=== PATIENT | male | born 1950 | race Caucasian/White ===

== ENCOUNTER 2017-12-21 10:46 | Inpatient (IN) | payer MEDICARE, OTHER ==
[2017-12-11 12:01] VITALS: Ht 172.7 cm; Wt 85.7 kg
--- NOTE | 2017-12-11 12:43 | PAT Medication Instructions ---
Service Date Dec 11, 2017. Current Home Medication List Aspirin (Aspirin Ec), 81 MG PO QAM Celecoxib (CeleBREX), 200 MG PO QAM Diltiazem Hcl Ext Rel (Tiazac), 240 MG PO QAM Fish Oil ([place]-3), 1 CAP PO QAM Glimepiride (Glimepiride), 1 TAB PO BID Hydrochlorothiazide (Hctz), 50 MG PO QAM Metformin Hcl (Glucophage), 500 MG PO QAM Naproxen (Aleve), 440-660 MG PO PRN Pantoprazole (Protonix), 40 MG PO QAM Potassium Ext Rel (Klor-Con), 20 MEQ PO QAM Rosuvastatin Calcium (Crestor), 10 MG PO QAM [Arthro 7], 1 TAB PO QAM Medication Instructions For Your Scheduled Surgery -Contact your surgeon for instructions for: Celecoxib (CeleBREX), 200 MG PO QAM Naproxen (Aleve), 440-660 MG PO PRN - Hold the following medications starting tomorrow 12/12: Fish Oil ([place]-3), 1 CAP PO QAM [Arthro 7], 1 TAB PO QAM - Hold the following medications the morning of surgery: Potassium Ext Rel (Klor-Con), 20 MEQ PO QAM Metformin Hcl (Glucophage), 500 MG PO QAM Glimepiride (Glimepiride), 1 TAB PO BID Hydrochlorothiazide (Hctz), 50 MG PO QAM - Take the following medications the morning of surgery with a sip of water: Aspirin (Aspirin Ec), 81 MG PO QAM Rosuvastatin Calcium (Crestor), 10 MG PO QAM Pantoprazole (Protonix), 40 MG PO QAM Diltiazem Hcl Ext Rel (Tiazac), 240 MG PO QAM - Take the following medications as scheduled the night before surgery: Glimepiride (Glimepiride), 1 TAB PO BID If you have any questions please call us at [phone] or [phone] or [phone]
--- NOTE | 2017-12-11 13:28 | DIAGNOSTIC IMAGING REPORT ---
CHEST 2 VIEWS ROUTINE CLINICAL HISTORY: 67 years-old Male presenting with preoperative assessment. TECHNIQUE: PA and lateral views of the chest were obtained. COMPARISON: None. FINDINGS: Atherosclerosis of the aortic arch. Cardiac silhouette normal in size. Lungs and pleural spaces clear. Degenerative changes of the thoracic spine. Right shoulder arthroplasty. Upper abdomen normal. IMPRESSION: 1. No acute cardiopulmonary disease. Electronically signed by: Jet Farris M.D. 12/11/2017 1:27 PM Dictated Date/Time: 12/11/2017 1:26 PM
[2017-12-11 13:36] LABS: BASO % 0.4 %; BASO ABS # 0.03 K/uL (0-0.2); EOS % 2.6 %; EOS ABS # 0.21 K/uL (0-0.5); HEMATOCRIT 37.4 % (42-52); HEMOGLOBIN 12.5 g/dL (14.0-18.0); IG# 0.01 K/uL (0.00-0.02); LYMPH % 19.1 %; LYMPH ABS # 1.56 K/uL (1.2-3.4); MEAN CELL VOLUME 92.8 fL (80-100); MEAN CORPUSCULAR HGB CONC 33.4 g/dl (32-36); MEAN PLATELET VOLUME 9.7 fL (7.4-10.4); MONO % 5.5 %; MONO ABS # 0.45 K/uL (0.11-0.59); NEUT % 72.3 %; NEUT ABS # 5.89 K/uL (1.4-6.5); PLATELET COUNT 202 K/uL (130-400); RED CELL DISTRIBUTION WIDTH CV 13.2 % (11.5-14.5); RED CELL DISTRIBUTION WIDTH SD 45.2 fL (36.4-46.3); WHITE BLOOD COUNT 8.15 K/uL (4.8-10.8)
[2017-12-11 15:11] LABS: CALCIUM 9.8 mg/dl (8.5-10.1); CREATININE 1.78 mg/dl (0.60-1.40); POTASSIUM 4.6 mmol/L (3.5-5.1)
[~2017-12-21] VITALS: Ht 172.7 cm; Wt 85.7 kg
[~2017-12-21 10:46] MED LIST: ARTHRO 7 PO; ASPI81TA28 PO; CEFAZOLIN 1000MG IV PUSH 7.5 ML IV SCH; CEFAZOLIN 2000MG IV PUSH 15 ML IV SCH; CLB/200 PO; CRS/10 PO; DILT-115 PO; GLC/500 PO; GLIM4TAB2 PO; HYDR50TA3 PO; LACTATED RINGER'S 1000ML 1,000 ML IV SCH; NAPR1TAB9 PO; OMEG10007 PO; PANT40TA PO; POTA20TA16 PO
[2017-12-21 11:35] VITALS: BP 154/91; PULSE 61; TEMP 36.5; O2SAT 97
[2017-12-21 12:09] LABS: CREATININE 1.88 mg/dl (0.60-1.40); POTASSIUM 3.7 mmol/L (3.5-5.1)
--- NOTE | 2017-12-21 14:22 | History & Physical Bridge Note ---
H&P Re-Evaluation Bridge Note: I have examined the patient, reviewed the History & Physical and in the interval since the performance of the History & Physical I have noted the following changes of clinical significance: No changes noted
--- NOTE | 2017-12-21 14:25 | History and Physical ---
History & Physical Date Dec 21, 2017. Chief Complaint Back and leg pain History of Present Illness The patient is a 67 year old male with complaints of back and leg pain Additional History Hepatic Disease: No Endocrine Disorder: No Kidney Disease: No Hypertension: Yes Heart Disease: No Bleeding Tendencies: No Infectious Diseases: No Allergies Coded Allergies: Acetaminophen (Verified Allergy, Mild, sees bugs, 12/21/17) Oxycodone (Verified Allergy, Mild, sees bugs, 12/21/17) Carisoprodol (Verified Allergy, Unknown, HIVES, 12/21/17) Codeine (Verified Allergy, Unknown, HIVES, 12/21/17) Home Medications Scheduled Aspirin (Aspirin Ec), 81 MG PO QAM Celecoxib (CeleBREX), 200 MG PO QAM Diltiazem Hcl Ext Rel (Tiazac), 240 MG PO QAM Fish Oil ([place]-3), 1 CAP PO QAM Glimepiride (Glimepiride), 1 TAB PO BID Hydrochlorothiazide (Hctz), 50 MG PO QAM Metformin Hcl (Glucophage), 500 MG PO QAM Naproxen (Aleve), 440-660 MG PO PRN Pantoprazole (Protonix), 40 MG PO QAM Potassium Ext Rel (Klor-Con), 20 MEQ PO QAM Rosuvastatin Calcium (Crestor), 10 MG PO QAM [Arthro 7], 1 TAB PO QAM Physical Examination Skin: warm/dry, no rash Eyes: normal inspection, EOMI, sclerae normal ENT: normal ENT inspection, pharynx normal Head: normocephalic, atraumatic Neck: supple, no adenopathy, trachea midline Respiratory/Chest: lungs clear, normal breath sounds, no respiratory distress Cardiovascular: regular rate, rhythm, no edema, no murmur Abdomen / GI: normal bowel sounds, non tender Back: normal inspection Extremities: normal inspection, normal range of motion Neurologic/Psych: no motor/sensory deficits, alert, normal reflexes, oriented x 3 Diagnosis Lumbar spinal stenosis with spondylolisthesis Plan of Treatment L5-S1 decompression fusion
[2017-12-21] MEDS ORDERED: PROPOFOL IV EMULSION 10 MG/ML 20 ML VIAL IV ONE (14:37)
[2017-12-21] MEDS ORDERED: ONDANSETRON INJ 2 MG/ML 2 ML VIAL ONE (14:37)
[2017-12-21] MEDS ORDERED: FENTANYL CITRATE INJ 50 MCG/1 ML 2 ML VIAL ONE ×2 (14:37→16:18)
[2017-12-21] MEDS ORDERED: DEXAMETHASONE SOD INJ 4 MG/ML VIAL ONE (14:37)
[2017-12-21] MEDS ORDERED: NEOSTIGMINE METHYLSULFATE 1 MG/ML 10ML VIAL ONE (14:37)
[2017-12-21] MEDS ORDERED: GLYCOPYRROLATE INJ 0.2 MG/ML VIAL ONE (14:37)
[2017-12-21] MEDS ORDERED: LIDOCAINE HCL 2% 2 ML VIAL (20MG/ML) ONE (14:37)
[2017-12-21] MEDS ORDERED: BACITRACIN 50000 UNIT VIAL ONE (14:38)
[2017-12-21] MEDS ORDERED: HYDROmorphone INJ 2 MG/ML SYR/VIAL ONE (14:38)
[2017-12-21] MEDS ORDERED: MIDAZOLAM HCL 1 MG/ML 2ML VIAL ONE (14:38)
[2017-12-21] MEDS ORDERED: BUPIVACAINE/EPINEPHRINE 0.5% MPF 1:200,000 30 ML VIAL ONE (14:38)
--- NOTE | 2017-12-21 15:38 | Anesthesiology Progress Note ---
Anesthesia Progress Note Date of Service Dec 21, 2017. Progress Notes The patient is a 67 y/o male with a h/o HTN, DLD, mild nonobstructive CAD and DMII who is scheduled to undergo L5-S1 decompression fusion with Dr. Gabriel today. On the preoperative labs from 12/11/17 it was noted that the patient had a creatinine of 1.78. There was no prior creatinine on record. A creatinine was ordered to be drawn on day of surgery and was found to be 1.88. The patient had been cleared for surgery by his PCP Dr. Noonan but there was no mention of the increased creatinine. I was able to get a hold of Dr. Noonan prior to surgery and spoke to him. He stated that the patient's baseline creatinine appears to be 1.3 to 1.4, however given the patient's history of DM he was not too impressed with the level of increase in creatinine and stated that he would clear the patient for surgery recommending adequate perioperative IV hydration. The patient's son then told me that the patient had just admitted to taking Aleve three times a day for his shoulder pain over the last several weeks. He did not take any this week. I informed the patient that this is likely leading to his worsening renal function and recommended that he not take all of these NSAID and that he discuss alternative pain management options with his PCP. I also informed the patient and the family that he is at increased risk for worsening renal function after surgery. The patient and family understand and agree with proceeding. Dr. Gabriel was also informed of the patient's creatinine have medicine follow the patient postoperatively.
[2017-12-21] MEDS ORDERED: ONDANSETRON INJ 2 MG/ML 2 ML VIAL IV PRN ×2 (15:45→17:00)
[2017-12-21] MEDS ORDERED: EpHEDrine SULFATE INJ 50 MG/ML AMP IV PRN (15:45)
[2017-12-21] MEDS ORDERED: ATROPINE SULFATE 0.1 MG/ML 5ML SYR IV PRN (15:45)
[2017-12-21] MEDS ORDERED: FENTANYL CITRATE INJ 50 MCG/1 ML 2 ML VIAL IV PRN (15:45)
[2017-12-21] MEDS ORDERED: FLOSEAL HEMOSTATIC MATRIX 10ML TOP ONE (16:40)
--- NOTE | 2017-12-21 16:46 | DIAGNOSTIC IMAGING REPORT ---
LUMBAR SPINE 2 OR 3 VIEW CLINICAL HISTORY: L5-S1 DECOMPRESSION/FUSION COMPARISON STUDY: No previous studies for comparison. Fluoroscopy time: 18 seconds. FINDINGS: These 2 fluoroscopic images demonstrate an L5-S1 discectomy. There is a posterior decompression. There are bilateral pedicle screws at the L5 and S1 levels with interconnecting rods. There is grade I anterolisthesis of L5 on S1. IMPRESSION: Fluoroscopic images demonstrating an L5-S1 discectomy and bilateral pedicle screw fusion. Electronically signed by: Michoacano Choudhary M.D. 12/21/2017 4:45 PM Dictated Date/Time: 12/21/2017 4:44 PM
[2017-12-21] MEDS ORDERED: SODIUM CHLORIDE 0.9% 1000ML 1,000 ML IV SCH (16:52)
--- NOTE | 2017-12-21 16:52 | [facility] Operative Report ---
Operative Report Operative Date Dec 21, 2017. Pre-Operative Diagnosis Lumbar spinal stenosis with spondylolisthesis Post-Operative Diagnosis Lumbar spinal stenosis with spondylolisthesis Procedure(s) Performed #1 lumbar decompression medial facetectomy foraminotomy L4 5 L5-S1. #2 posterior spinal fusion L5-S1. #3 placement posterior transportation L5-S1. #4 interbody fusion L5-S1. #5 placement peek cage 10 x 22 mm L5-S1. #6 placement locally harvested morcellized autograft in the posterior gutters. #7 placement infuse collagen sponge, mass graft and posterior gutters and osteal bone graft in the interbody space. Surgeon Dr. Gabriel Adult Ministries Director Surgeon(s) none Estimated Blood Loss 200 ML Findings Severe spinal stenosis with spondylolisthesis Specimens None Per Surgeon Anesthesia Type General Description of Procedure Patient was met with preoperatively case discussed all questions addressed. After informed consent obtained patient was taken to the operative suite underwent intubation placed in a prone position the Saul table on top of the Bienvenido frame. All bony promises well-padded eyes inspected to ensure no external pressure placed upon them. This point the lumbar spine was prepped and draped in normal sterile fashion. Sharp dissection with the assistance of Bovie cautery was performed onto an exposing the lamina and transverse processes of L5 and sacral alar bilaterally. From a caudal to cephalad fashion complete laminectomy of L5 partial laminectomy of L4 was performed addressing severe lateral recess and foraminal stenosis. After this was complete pedicle screws were placed in L5-S1 levels bilaterally with the assistance of fluoroscopy and the processes renaldo placed. Through a transforaminal approach on the right complete discectomy of L5-S1 was performed endplates curetted to subcortical bleeding bone and a 10 x 22 mm peek cage filled with osteal bone graft tapped in position. The rods were then locked and final position bilaterally. The transverse processes of 5 the sacral alar bur to subcortical bleeding bone. Infuse collagen sponge mass graft and locally harvested morcellized autograft placed in the posterior gutters. 15 round DILEEP drain inserted. Incision was then closed with 1 Vicryl fascia 2-0 Vicryl subcutaneous tensely 4-0 Monocryl for final skin closure Steri-Strips dressings placed in patient with the PACU stable condition. I attest to the content of the Intraoperative Record and any orders documented therein. Any exceptions are noted below.
[2017-12-21] MEDS ORDERED: SOD PHOSPHATE/SOD BIPHOSPHATE ENEMA 132 ML BTL PR PRN (17:00)
[2017-12-21] MEDS ORDERED: CEFAZOLIN IV 2,000 MG in DEXTROSE 5% 50ML 50 ML IV SCH (17:00)
[2017-12-21] MEDS ORDERED: LORAZEPAM 0.5 MG TAB PO PRN (17:00)
[2017-12-21] MEDS ORDERED: ALUMINUM/MAGNESIUM SUSP 30 ML UDC PO PRN (17:00)
[2017-12-21] MEDS ORDERED: DC PCA PRN (17:00)
[2017-12-21] MEDS ORDERED: MAGNESIUM HYDROXIDE SUSP 30 ML UDC PO PRN (17:00)
[2017-12-21] MEDS ORDERED: LORAZEPAM INJ 0.5 MG in SYRINGE 0 ML IV PRN (17:00)
[2017-12-21] MEDS ORDERED: DO NOT ADMINISTER PNEUMOCOCCAL VACCINE PRN (17:00)
[2017-12-21] MEDS ORDERED: DO NOT ADMINISTER FLU VACCINE PRN (17:00)
[2017-12-21] MEDS ORDERED: FAMOTIDINE 20 MG TAB PO PRN (17:00)
[2017-12-21] MEDS ORDERED: NALOXONE HCL 0.4 MG/1 ML VIAL/CARP IV PRN ×2 (17:00)
[2017-12-21] MEDS ORDERED: hydrOXYzine HCL 25 MG TAB PO PRN (17:00)
[2017-12-21] MEDS ORDERED: PROMETHAZINE HCL INJ 12.5 MG in SODIUM CHLORIDE 0.9% 50ML 50 ML IV PRN (17:00)
[2017-12-21] MEDS ORDERED: METOCLOPRAMIDE HCL INJ 5 MG/ML 2 ML VIAL IV PRN (17:00)
[2017-12-21] MEDS ORDERED: HYDROmorphone HCL 0.5MG/ML 50 ML CASSETTE IV PRN (17:00)
[2017-12-21] MEDS ORDERED: BISACODYL 10 MG SUPP PR PRN (17:00)
[2017-12-21] MEDS ORDERED: HYDROmorphone HCL 0.5MG/ML 50 ML CASSETTE ONE (17:08)
[2017-12-21] MEDS ORDERED: ACETAMINOPHEN IV 100 ML IV PRN (17:15)
--- NOTE | 2017-12-21 17:45 | Anesthesiology Progress Note ---
Anesthesia Post Op Note Date & Time Dec 21, 2017 at 17:45 Vital Signs Pain Intensity: 3 Vital Signs Past 12 Hours Date Time Temp Pulse Resp B/P (MAP) Pulse Ox O2 Delivery O2 Flow Rate FiO2 12/21/17 17:35 55 16 146/81 93 Room Air 12/21/17 17:25 60 10 156/82 100 Oxymask 10 12/21/17 17:15 65 16 143/91 99 Oxymask 10 12/21/17 17:06 36.4 86 12 151/99 99 Oxymask 10 12/21/17 11:35 36.5 61 18 154/91 97 Room Air Notes Mental Status: alert / awake / arousable, participated in evaluation Pt Amnestic to Procedure: Yes Nausea / Vomiting: adequately controlled Pain: adequately controlled Airway Patency, RR, SpO2: stable & adequate BP & HR: stable & adequate Hydration State: stable & adequate Anesthetic Complications: no major complications apparent
[2017-12-21 18:00] VITALS: BP 145/71; PULSE 48; TEMP 36.5; O2SAT 95
[2017-12-21 18:30] VITALS: BP 146/79; PULSE 49; TEMP 36.5; O2SAT 92
[2017-12-21 19:15] VITALS: BP 137/89; PULSE 63; TEMP 36.3; O2SAT 92
[2017-12-21] MEDS: SODIUM CHLORIDE 0.9% 1000ML 1,000 ML IV SCH (20:13)
[2017-12-21 20:15] VITALS: BP 146/87; PULSE 70; TEMP 36.4; O2SAT 94
[2017-12-21] MEDS ORDERED: INSULIN ASPART 100 UNITS/ML 3 ML PEN SC ONE (21:01)
--- NOTE | 2017-12-21 21:01 | Medical Consult ---
Consultation Date of Consultation: Dec 21, 2017. Attending Physician: Kile Gabriel D.O. Reason for Consultation: Post op medical management History of Present Illness This is a 67yo M with a PMH of lumbar spine stenosis, DM II, HTN, HLD and GERD who is POD #0 s/p L5-S1 decompression fusion by Dr. Gabriel. Patient is doing well post-operatively. Is sitting upright in bed waiting to ambulate with the nursing staff. Denies any pain, fever, chills, lightheadedness, headache, visual changes, sore throat, CP, SOB, abdominal pain, nausea, vomiting, dysuria or LE swelling. Follows with Dr. Renaldo Noonan in [place] for primary care. Takes glimepiride and metformin for DM II. Is not sure what his most recent hgb a1c was. States that he exercises regularly and maintains a healthy diet. Uses chewing tobacco daily. Past Medical/Surgical History Medical Problems: (1) Diabetes mellitus, type II Status: Chronic (2) GERD (gastroesophageal reflux disease) Status: Chronic (3) HLD (hyperlipidemia) Status: Chronic (4) HTN (hypertension) Status: Chronic (5) Lumbar stenosis with neurogenic claudication Status: Chronic Family History Diabetes mellitus FH: heart disease Hypertension Social History Smoking Status: Never Smoker Smokeless Tobacco Use: Yes (chewing tobacco daily ) Alcohol Use: occasionally Marital Status: Housing Status: lives with significant other Allergies Coded Allergies: Carisoprodol (Verified Allergy, Intermediate, HIVES, 12/21/17) Codeine (Verified Allergy, Intermediate, HIVES, 12/21/17) Oxycodone (Verified Adverse Reaction, Unknown, evan holley, 12/21/17) Current Inpatient Medications Current Inpatient Medications Medications (Trade) Dose Ordered Sig/Speedy Route Start Time Stop Time Status Last Admin Dose Admin Lactated Ringer's 1,000 ml @ 15 mls/hr Q24H IV 12/21/17 06:00 12/22/17 05:59 12/21/17 11:42 15 MLS/HR Promethazine HCl 12.5 mg/Sodium Chloride 50.5 ml @ 202 mls/hr Q6H PRN IV 12/21/17 17:00 01/20/18 16:59 Ondansetron HCl (Zofran Inj) 4 mg Q6H PRN IV 12/21/17 17:00 01/20/18 16:59 Metoclopramide HCl (Reglan Inj) 10 mg Q6H PRN IV 12/21/17 17:00 01/20/18 16:59 Lorazepam (Ativan Tab) 0.5 mg Q8H PRN PO 12/21/17 17:00 01/20/18 16:59 Lorazepam 0.5 mg/ Syringe 0.25 ml @ 1 mls/min Q8H PRN IV 12/21/17 17:00 01/20/18 16:59 Pneumococcal Polysaccharide Vaccine 1 ea PRN PRN N/A 12/21/17 17:00 01/20/18 16:59 Influenza Virus Vacc Triv Types A&B 1 ea PRN PRN N/A 12/21/17 17:00 01/20/18 16:59 Polyethylene (Miralax Powder Packet) 17 gm Q6 PO 12/23/17 06:00 01/22/18 05:59 Bisacodyl (Dulcolax Supp) 10 mg DAILY PRN DE 12/21/17 17:00 01/20/18 16:59 Magnesium Hydroxide (Milk Of Magnesia Susp) 30 ml DAILY PRN PO 12/21/17 17:00 01/20/18 16:59 Hydromorphone HCl (Dilaudid Inj) 0.5 mg Q3H PRN IV 12/22/17 06:00 01/05/18 05:59 Sodium Chloride 1,000 ml @ 150 mls/hr Q6H40M IV 12/21/17 19:15 01/20/18 19:14 12/21/17 20:13 150 MLS/HR Celecoxib (CeleBREX CAP) 200 mg DAILY PO 12/22/17 09:00 01/21/18 08:59 Naloxone HCl (Narcan Inj) 0.1 mg Q5M PRN IV 12/21/17 17:00 01/20/18 16:59 Senna/Docusate Sodium (Senokot S Tab) 2 tab HS PO 12/21/17 21:00 01/20/18 20:59 Sodium Biphosphate/ Sodium Phosphate (Fleet Enema) 132 ml ONE PRN DE 12/21/17 17:00 01/20/18 16:59 Hydroxyzine HCl (Vistaril Tab) 25 mg Q8H PRN PO 12/21/17 17:00 01/20/18 16:59 Al Hydroxide/Mg Hydroxide (Maalox Susp) 30 ml Q6H PRN PO 12/21/17 17:00 01/20/18 16:59 Famotidine (Pepcid Tab) 20 mg Q12 PRN PO 12/21/17 17:00 01/20/18 16:59 Diphenhydramine HCl (Benadryl Cap) 25 mg Q6H PRN PO 12/21/17 17:00 01/20/18 16:59 Miscellaneous Information (Discontinue MERCHANDISE COORDINATOR) 1 ea DIRECTED PRN N/A 12/21/17 17:00 12/22/17 06:00 Naloxone HCl (Narcan Inj) 0.1 mg Q5M PRN IV 12/21/17 17:00 12/22/17 06:00 Hydromorphone HCl (Dilaudid Dog Handler Or Trainer) 25 mg PRN PRN IV 12/21/17 17:00 12/22/17 06:00 Sodium Chloride 1,000 ml @ 15 mls/hr Q24H IV 12/21/17 16:52 12/22/17 06:00 Aspirin (Ecotrin Tab) 81 mg QAM PO 12/22/17 09:00 01/21/18 08:59 Diltiazem HCl (TIAzac CAP) 240 mg QAM PO 12/22/17 09:00 01/21/18 08:59 Hydrochlorothiazide (Hydrochlorothiazide Tab) 50 mg QAM PO 12/22/17 09:00 01/21/18 08:59 Pantoprazole Sodium (Protonix Tab) 40 mg QAM PO 12/22/17 09:00 01/21/18 08:59 Potassium Chloride (Klor-Con Tab) 20 meq QAM PO 12/22/17 09:00 01/21/18 08:59 Rosuvastatin Calcium (Crestor Tab) 10 mg QAM PO 12/22/17 09:00 01/21/18 08:59 Tramadol HCl (Ultram Tab) 50 mg Q4H PRN PO 12/22/17 06:00 01/21/18 05:59 Acetaminophen 100 ml @ 400 mls/hr Q8H PRN IV 12/21/17 17:15 01/20/18 17:14 Cefazolin Sodium 2000 mg/Syringe 15 ml @ 3.75 mls/ min Q8H IV 12/21/17 23:00 12/22/17 07:03 Hydromorphone HCl (Dilaudid Inj) 1 mg Q3H PRN IV 12/22/17 06:00 01/05/18 05:59 Review of Systems Ten systems reviewed and negative except as noted in the HPI. Physical Exam Date Time Temp Pulse Resp B/P (MAP) Pulse Ox O2 Delivery O2 Flow Rate FiO2 12/21/17 19:15 36.3 63 18 137/89 (105) 92 Room Air 12/21/17 18:30 36.5 49 18 146/79 (101) 92 Room Air 12/21/17 18:00 95 Room Air 12/21/17 18:00 95 Room Air 12/21/17 18:00 36.5 48 16 145/71 (95) 95 Room Air 12/21/17 17:45 36.9 56 12 146/90 96 Room Air 12/21/17 17:35 55 16 146/81 93 Room Air 12/21/17 17:25 60 10 156/82 100 Oxymask 10 12/21/17 17:15 65 16 143/91 99 Oxymask 10 12/21/17 17:06 36.4 86 12 151/99 99 Oxymask 10 12/21/17 11:35 36.5 61 18 154/91 97 Room Air General Appearance: WD/WN, no apparent distress, + pertinent finding (Sitting upright, breathing comfortably on room air. ) Head: normocephalic, atraumatic Eyes: normal inspection, PERRL, sclerae normal ENT: normal ENT inspection, hearing grossly normal, pharynx normal Neck: supple, thyroid normal, trachea midline Respiratory/Chest: chest non-tender, lungs clear, normal breath sounds, no respiratory distress, no accessory muscle use Cardiovascular: regular rate, rhythm, no murmur, normal peripheral pulses Abdomen/GI: non tender, soft, no organomegaly Back: normal inspection (dressing visualized. Clean, dry, intact. Drain with appropriate output ) Extremities/Musculoskelatal: normal inspection (miranda hose bilaterally), no calf tenderness, no pedal edema Neurologic/Psych: no motor/sensory deficits, alert, normal mood/affect, oriented x 3 Skin: normal color, warm/dry Laboratory Results Last 24 Hours Test 12/21/17 11:30 12/21/17 17:12 12/21/17 18:30 12/21/17 20:48 Sodium Level 139 mmol/L Potassium Level 3.7 mmol/L Chloride Level 104 mmol/L Carbon Dioxide Level 28 mmol/L Anion Gap 7.0 mmol/L Blood Urea Nitrogen 38 mg/dl Creatinine 1.88 mg/dl Est Creatinine Clear Calc Drug Dose 41.2 ml/min Estimated GFR () 42.2 Estimated GFR (Non- 36.4 BUN/Creatinine Ratio 20.3 Random Glucose 134 mg/dl Calcium Level 9.0 mg/dl Bedside Glucose 158 mg/dl 184 mg/dl 211 mg/dl Assessment & Plan This is a 67yo M with a PMH of lumbar spine stenosis, DM II, HTN, HLD and GERD who is POD #0 s/p L5-S1 decompression fusion by Dr. Gabriel. Lumbar spine stenosis s/p decompression fusion: -POD #0 s/p L5-S1 decompression fusion by Dr. Gabriel -Doing well post-operatively. Already interested in ambulating -Per ortho for pain control, wound care, anticoagulation and activities -Hold Celebrex and Aleve -Monitor H&H, continue incentive spirometry, PT/OT when appropriate DM II: -A1c pending -Hold home oral agents -Given Decadron intraoperatively -SSI while in-patient with overnight BSG check -Diabetic diet -BSG check AC HS HTN: -Normotensive -Cont diltiazem, HCTZ GERD: -Cont protonix HLD: -Cont crestor PCP: Renaldo Noonan ([place]) Dispo: Per ortho Patient seen in collaboration with Dr. Harrell. Please see addendum. Thank you for this consultation. We will follow the patient with you during their hospital stay. You can reach a [facility] via pager @ . Attending addendum: Agree with the above H&P consultation; please refer to above for more details. Patient presented to the hospital for scheduled lumbar decompression/fusion fusion after failure of conservative therapies. The patient reported lumbar spinal stenosis was impairing his ability to ambulate prior to surgery. He underwent surgery earlier today and feels minimal pain and no radiation of pain to his legs. No other complaints noted. Cardiac: RR, S1 and S2 auscultated Resp: CTA B/L GI: soft, NT, ND, hypoactive bowel sounds POSTOPERATIVE STATE: s/p lumbar decompression/fusion surgery -pain control, DVT prophylaxis, activity as per primary team -incentive spirometry encouraged -bowel regimen ordered by primary -monitor for post op anemia DM TYPE II: -hold oral medications -cover with lantus + correction scale insulin while in the hospital -update a HbA1c
[2017-12-21] MEDS ORDERED: GLUCAGON FOR INJ 1 MG VIAL SQ PRN (21:15)
[2017-12-21] MEDS ORDERED: DEXTROSE 50% 50 ML SYR IV PRN (21:15)
[2017-12-21] MEDS ORDERED: GLUCOSE 40% GEL 15 GM TUBE PO PRN (21:15)
[2017-12-21] MEDS ORDERED: GLUCOSE 10 TABS/TUBE PO PRN (21:15)
[2017-12-21] MEDS: DOCUSATE SODIUM/SENNA 50/8.6MG TAB PO SCH (22:13)
[2017-12-21] MEDS: CEFAZOLIN IV 2,000 MG in SYRINGE 0 ML IV SCH (22:13)
[2017-12-21] MEDS: INSULIN ASPART 100 UNITS/ML 3 ML PEN SC SCH (22:20)
[2017-12-21 22:58] VITALS: BP 131/71; PULSE 72; TEMP 37.1; O2SAT 93
[2017-12-22] MEDS: INSULIN GLARGINE SOLOSTAR 100 UNITS/ML 3 ML PEN SC SCH ×3 (00:41→21:04)
[2017-12-22] MEDS ORDERED: INSULIN ASPART 100 UNITS/ML 3 ML PEN SC SCH (02:00)
[2017-12-22] MEDS: SODIUM CHLORIDE 0.9% 1000ML 1,000 ML IV SCH (02:02)
[2017-12-22] MEDS ORDERED: HYDROmorphone INJ 0.5 MG/0.5 ML SYR IV PRN (06:00)
[2017-12-22] MEDS ORDERED: HYDROmorphone INJ 1 MG/ML SYR IV PRN (06:00)
[2017-12-22] MEDS ORDERED: TRAMADOL HCL 50 MG TAB PO PRN (06:00)
[2017-12-22 06:34] LABS: HEMATOCRIT 32.7 % (42-52); HEMOGLOBIN 11.5 g/dL (14.0-18.0); IG# 0.03 K/uL (0.00-0.02); LYMPH ABS # 0.64 K/uL (1.2-3.4); MEAN CELL VOLUME 90.3 fL (80-100); MEAN CORPUSCULAR HEMOGLOBIN 31.8 pg (25-34); MEAN CORPUSCULAR HGB CONC 35.2 g/dl (32-36); MEAN PLATELET VOLUME 9.1 fL (7.4-10.4); MONO % 4.5 %; MONO ABS # 0.58 K/uL (0.11-0.59); NEUT % 90.3 %; NEUT ABS # 11.51 K/uL (1.4-6.5); PLATELET COUNT 182 K/uL (130-400); RED CELL DISTRIBUTION WIDTH CV 13.1 % (11.5-14.5); WHITE BLOOD COUNT 12.76 K/uL (4.8-10.8)
[2017-12-22] MEDS: CEFAZOLIN IV 2,000 MG in SYRINGE 0 ML IV SCH (06:39)
[2017-12-22] MEDS ORDERED: NURSING DECISION MEDICATION ORDER SCH (06:45)
[2017-12-22 07:00] LABS: CREATININE 1.79 mg/dl (0.60-1.40)
[2017-12-22 07:01] LABS: CALCIUM 8.2 mg/dl (8.5-10.1); POTASSIUM 3.8 mmol/L (3.5-5.1)
[2017-12-22 07:11] LABS: HEMOGLOBIN A1C 6.9 % (4.5-5.6)
[2017-12-22 07:51] VITALS: BP 132/82; PULSE 70; TEMP 36.3; O2SAT 95
[2017-12-22 08:08] VITALS: O2SAT 95
--- NOTE | 2017-12-22 08:42 | Clinical Documentation Query ---
ROSELYN Molina : CLINICAL DOCUMENTATION QUERY Patient is a 67 year old male who on 12/21 underwent lumbar decompression and posterior spinal and interbody fusion. Admission BUN and creatinine were 39 mg/dl and 1.78 mg/dl. Further rise 12/21 to 38 mg/dl adn 1.88 mg/dl. Anesthesia documentation included " baseline creatinine appears to be 1.3 to 1.4". In your clinical opinion is this patient being managed for: ( ) SERGIO on CKD stage 3 ( ) Not Agree ( ) Other explanation of clinical findings (Please Explain) ( ) Unable to determine (Please Define) ( ) Need to Discuss The medical record reflects the following clinical findings, treatment, and risk factors. Clinical Indicators: As above Treatment: IVF, serial chemistries Risk Factors: Age, hypertension, medications, DM type II Please clarify and document your clinical opinion in the progress notes and discharge summary. Terms such as "probable", "suspected", "likely", "questionable", "possible", or "still to be ruled out" are acceptable. IF IN AGREEMENT, YOU MUST DOCUMENT ABOVE DIAGNOSTIC STATEMENT IN DAILY PROGRESS NOTES AND DISCHARGE SUMMARY. This document is not part of the patient's record. Thank You, Rell Noonan, KIRA [phone]
--- NOTE | 2017-12-22 08:45 | Clinical Documentation Query ---
JOSE D Beck : CLINICAL DOCUMENTATION QUERY Patient is a 67 year old male who on 12/21 underwent lumbar decompression and posterior spinal and interbody fusion. Admission BUN and creatinine were 39 mg/dl and 1.78 mg/dl. Further rise 12/21 to 38 mg/dl adn 1.88 mg/dl. Anesthesia documentation included " baseline creatinine appears to be 1.3 to 1.4". There is no classification/diagnosis associated with this finding in the medical record. Please clarify as clinically appropriate. Thank you. In your clinical opinion is this patient being managed for: ( x ) SERGIO on CKD stage 3 ( ) Not Agree ( ) Other explanation of clinical findings (Please Explain) ( ) Unable to determine (Please Define) ( ) Need to Discuss The medical record reflects the following clinical findings, treatment, and risk factors. Clinical Indicators: As above Treatment: IVF, serial chemistries Risk Factors: Age, hypertension, medications, DM type II Please clarify and document your clinical opinion in the progress notes and discharge summary. Terms such as "probable", "suspected", "likely", "questionable", "possible", or "still to be ruled out" are acceptable. IF IN AGREEMENT, YOU MUST DOCUMENT ABOVE DIAGNOSTIC STATEMENT IN DAILY PROGRESS NOTES AND DISCHARGE SUMMARY. This document is not part of the patient's record. Thank You, Rell Noonan RN [phone]
[2017-12-22] MEDS ORDERED: CeleBREX 200 MG CAP PO SCH (09:00)
[2017-12-22] MEDS: DILTIAZEM HCL 120 MG EXT REL CAP PO SCH (09:10)
[2017-12-22] MEDS: PANTOprazole SOD 40 MG TAB PO SCH (09:10)
[2017-12-22] MEDS: ASPIRIN 81 MG ECTAB PO SCH (09:11)
[2017-12-22] MEDS: POTASSIUM CHLORIDE 20 MEQ TABCR PO SCH (09:11)
[2017-12-22] MEDS: HYDROCHLOROTHIAZIDE 50 MG TAB PO SCH (09:11)
[2017-12-22] MEDS: ROSUVASTATIN CALCIUM 10 MG TAB PO SCH (09:11)
[2017-12-22] MEDS: INSULIN ASPART 100 UNITS/ML 3 ML PEN SC SCH ×4 (09:18→20:57)
[2017-12-22] MEDS ORDERED: ULT50X PO (09:39)
--- NOTE | 2017-12-22 09:40 | Discharge Instructions ---
Discharge Instructions Date of Service Dec 22, 2017. Admission Reason for Admission: Spinal Stenosis Discharge Discharge Diagnosis / Problem: stenosis Discharge Goals Goal(s): Improve function Activity Recommendations Activity Limitations: per Instructions/Follow-up section . Instructions / Follow-Up Instructions / Follow-Up ACTIVITY RECOMMENDATIONS: SELF CARE INSTRUCTIONS AFTER THORACIC/LUMBAR FUSIONS 1. You may walk to your tolerance. It is good exercise for your legs and back. Expect some back and intermittent leg aches and pains. 2. You may perform "counter-top" level activities (make a sandwich, jose with a project, etc.). 3. No bending or lifting of more than 10 pounds or back twisting of any nature (roll like a log when turning in bed). 4. You may ride in a car for 20-30 minutes at a time. No driving until after your first visit with your doctor. 5. Frequent changes of position and restricting sitting to 30 minutes at a time will help limit the amount of back spasms and stiffness you may experience. 6. You may discontinue the use of ambulatory aids (cane, crutches, etc.) once your strength and confidence allow. 7. You may supervisor drying the shower and let water strike your incision when you arrive home at least once daily. Do not take a tub bath, sit in a hot tub or go into a swimming pool until after your first recheck in the office. SPECIAL CARE INSTRUCTIONS: VERY IMPORTANT TO READ AND REVIEW A. Your surgical incision has been closed with a cosmetic suture under the skin that will dissolve in about 6 weeks. In 14 days, you can use a pair of clean scissors and cut the suture that is left outside of the skin at the ends of your incision. 1. The small skin tapes can be removed 7 days after surgery if they have not fallen off by that point. 2. You may keep the wound open to air as much as possible to promote healing after post-op day number 5 unless told otherwise by your doctor. 3. If you think the wound looks like it is becoming infected (redness or worsening drainage) and/or you are experiencing fever, chill or worsening back pain and muscle spasms, contact the office so that we may evaluate you as soon as possible. B. Complications are uncommon, but please contact us if you have any signs or symptoms of: 1. wound infection (fever higher than 102.5 degrees F, redness, separation of wound, drainage, or increasing pain from the incision) 2. blood clots in legs (pain, swelling, redness and warmth in legs) 3. urinary tract infection (fever higher than 102.5 degrees F, burning upon urination or increased frequency of urination) 4. nerve problems (inability to walk on your toes or heels, numbness, loss of bowel or bladder control) 5. any other symptoms that concern you C. Please call the office at if you have any concerns or questions about your operation or recovery. D. No smoking! Smoking drastically decreases the chance of a solid fusion. E. Do not take any anti-inflammatory medications (Indocin, Advil, Motrin, Aspirin, Naprosyn, etc.) as these may inhibit the chance of a solid fusion. Tylenol is okay to take for pain. MANAGING PAIN AFTER SPINAL SURGERY 1. Narcotic medication is intended for short-term use and will be provided for surgical pain. Surgical pain usually lasts for a period of 4-6 weeks. Narcotic medication includes Percocet, Vicodin, Darvocet, Tylenol #3 or Lortab. 2. Longer-term pain is more appropriately treated with non-narcotic medication such as Tylenol ES. 3. Muscle spasm is not appropriately treated with narcotics. Muscle relaxers such as Soma, Flexeril or Skelaxin can be used along with Tylenol ES. 4. Remember that we all live with some "aches and pains". This is not unusual or uncommon after an injury or as we get older. a. Back pain is expected and may include muscle spasms for 4 to 6 weeks after surgery. The pain should gradually improve. If the pain worsens for no apparent reason, please contact the office. b. Intermittent leg pain may also be experienced and should not be concerned about unless it worsens for no apparent reason. If so, please contact the office. 5. We will provide appropriate medication within the normal guidelines of their prescribed use. We will also be very cautious and aware of potential abuse and extended duration of patients' medication needs. a. Pain medications are for your comfort and to assist with sleep and rest so that the tissue can heal. They are not provided in order to return to normal activity and should not be used through the day. To do so or worsening pain at night can result from ongoing tissue damage and development of tolerance to the prescribed medicine. 6. Please allow 2-3 days to process refills. Prescriptions will not be mailed but must be picked up at the office. FOLLOW UP VISIT: Keep your scheduled follow-up appointment. Any questions, please call the office at . Current Hospital Diet Patient's current hospital diet: Diabetes Type 2 Diet Discharge Diet Recommended Diet: Regular Diet Procedures Procedures Performed: #1 lumbar decompression medial facetectomy foraminotomy L4 5 L5-S1. #2 posterior spinal fusion L5-S1. #3 placement posterior transportation L5-S1. #4 interbody fusion L5-S1. #5 placement peek cage 10 x 22 mm L5-S1. #6 placement locally harvested morcellized autograft in the posterior gutters. #7 placement infuse collagen sponge, mass graft and posterior gutters and osteal bone graft in the interbody space. Pending Studies Studies pending at discharge: no Laboratory Results Hemoglobin A1c Test 12/22/17 06:15 Range/Units Estimated Average Glucose 151 mg/dl Hemoglobin A1c 6.9 H 4.5-5.6 % Medical Emergencies . Who to Call and When: Medical Emergencies: If at any time you feel your situation is an emergency, please call 911 immediately. . Non-Emergent Contact Non-Emergency issues call your: Primary Care Provider . "Provider Documentation" section prepared by Kiel Gabriel. . VTE Core Measure Inpt VTE Proph given/why not?: Ama Smith, SCD's
--- NOTE | 2017-12-22 10:33 | Consultant Recommendations ---
[place] [facility] Recommendations Date of Service Dec 22, 2017. [place] [facility] Recommendations Subjective: No distress, sitting in chair speaking comfortably Physical Exam General: no distress Lungs: CTABL Heart: RRR Abdomen: soft, nontender, + bowel sounds Back: dressing covering tubing of plastic drain, serosanguineous fluid in drain Extremities: lowered extremities in stockings, able to flex and extend with symmetric strength of lower extremities Assessment & Plan as Hospitalist Medicine Consultation: This is a 67yo M with a PMH of lumbar spine stenosis, DM II, HTN, HLD and GERD who is POD #1 s/p L5-S1 decompression fusion by Dr. Gabriel. Lumbar spine stenosis s/p decompression fusion in a patient with SERGIO/CKD stage III -POD #1 s/p L5-S1 decompression fusion by Dr. Gabriel -there is a discharge note from orthopedics written -would advise that due to Acute kidney injury with CKD (acute kidney injury resolving) that patient avoid Celebrex or other NSAIDs until follow up with his primary care doctor Diabetes -glucose was elevated with recent steroids -HbA1c 6.9 -agree with continuing insulin in monitored setting as inpatient but unlikely to require insulin on discharge as HbA1c appears low. Of note HbA1c can be artificially lowered if recent history of blood transfusions) -likely patient can resume home oral anti-hyperglycemics and follow up with primary care doctor HTN: -Normotensive -Cont diltiazem, HCTZ GERD: -Cont protonix HLD: -Cont crestor DVT ppx as per orthopedics PCP: Renaldo Noonan ([place]) Dispo: Per ortho
[2017-12-22 11:47] VITALS: BP 170/80; PULSE 82; TEMP 36.7; O2SAT 97
--- NOTE | 2017-12-22 14:39 | Progress Note ---
Progress Note Date of Service Dec 22, 2017. Progress Note Patient's back pain is controlled. Leg pain markedly improved. On exam his excellent strength testing is ambulate with a neural steady gait. Assessment status post lumbar decompression fusion. Plan at this time will continue with physical therapy and anticipate discharge home Monday.
[2017-12-22 16:19] VITALS: BP 143/72; PULSE 69; TEMP 36.7; O2SAT 99
[2017-12-22] MEDS: DOCUSATE SODIUM/SENNA 50/8.6MG TAB PO SCH (20:59)
[2017-12-22 22:52] VITALS: BP 127/64; PULSE 74; TEMP 37.1; O2SAT 98
[2017-12-23] MEDS: POLYETHYLENE (MIRALAX) 17 GM PACK PO SCH ×4 (05:23→23:09)
[2017-12-23 06:35] VITALS: BP 128/75; PULSE 67; TEMP 37; O2SAT 98
[2017-12-23] MEDS: ROSUVASTATIN CALCIUM 10 MG TAB PO SCH (07:52)
[2017-12-23] MEDS: DILTIAZEM HCL 120 MG EXT REL CAP PO SCH (07:53)
[2017-12-23] MEDS: POTASSIUM CHLORIDE 20 MEQ TABCR PO SCH (07:53)
[2017-12-23] MEDS: PANTOprazole SOD 40 MG TAB PO SCH (07:53)
[2017-12-23] MEDS: HYDROCHLOROTHIAZIDE 50 MG TAB PO SCH (07:53)
[2017-12-23] MEDS: ASPIRIN 81 MG ECTAB PO SCH (07:53)
[2017-12-23] MEDS: INSULIN ASPART 100 UNITS/ML 3 ML PEN SC SCH ×4 (07:56→21:47)
[2017-12-23] MEDS: INSULIN GLARGINE SOLOSTAR 100 UNITS/ML 3 ML PEN SC SCH ×2 (07:57→21:48)
--- NOTE | 2017-12-23 10:29 | Progress Note ---
Progress Note Date of Service Dec 23, 2017. Progress Note Patient's pain is well-controlled. Leg pain markedly improved. Vital signs stable. On exam is good strength testing is in bleeding well. Assessment status post lumbar decompression fusion. Plan at this time we anticipate discharge home Monday.
--- NOTE | 2017-12-23 14:21 | Progress Note ---
Internal Med Progress Note Date of Service: Dec 23, 2017. Provider Documentation: Subjective: No distress, sitting in chair speaking comfortably. Patient reports that he is still getting some insulin injections. Blood sugars appear better than yesterday. Patient reports eating sweets yesterday. Physical Exam General: no distress, sitting in chair, verbal Lungs: CTABL Heart: RRR Abdomen: soft, nontender, + bowel sounds Back: dressing covering tubing of plastic drain, serosanguineous fluid in drain Extremities:no edema Neuro: awake, alert ASSESSMENT & PLAN: Assessment & Plan as Hospitalist Medicine Consultation: This is a 67yo M with a PMH of lumbar spine stenosis, DM II, HTN, HLD and GERD who is POD #2 s/p L5-S1 decompression fusion by Dr. Gabriel. Lumbar spine stenosis s/p decompression fusion in a patient with SERGIO/CKD stage III -POD #2 s/p L5-S1 decompression fusion by Dr. Gabriel -there is a discharge note from orthopedics written -have advised that due to Acute kidney injury with CKD (acute kidney injury resolving) that patient avoid Celebrex or other NSAIDs until follow up with his primary care doctor -patient did not report pain after Celebrex held Diabetes -HbA1c 6.9 -glucose was elevated with recent steroids, now improving after insulin in the hospital -patient does not use insulin at home and can resume home oral anti- hyperglycemics only with follow up with primary care doctor HTN: -Normotensive -Cont diltiazem, HCTZ GERD: -Cont protonix HLD: -Cont crestor DVT ppx as per orthopedics Dispo: as per orthopedics note, patient is planned for discharge tomorrow PCP: Renaldo Noonan ([place]) Vital Signs: Date Time Temp Pulse Resp B/P (MAP) Pulse Ox O2 Delivery O2 Flow Rate FiO2 12/23/17 07:27 Room Air 12/23/17 06:35 37.0 67 16 128/75 (92) 98 Room Air 12/22/17 22:52 37.1 74 20 127/64 (85) 98 Room Air 12/22/17 19:20 Room Air 12/22/17 16:19 36.7 69 16 143/72 (95) 99 Room Air 69 Lab Results: Results Past 24 Hours Test 12/22/17 17:23 12/22/17 20:18 12/23/17 06:40 12/23/17 12:09 Range/Units Bedside Glucose 143 151 137 154 70-99 mg/dl
[2017-12-23 14:59] VITALS: BP 146/83; PULSE 75; TEMP 37.1; O2SAT 94
[2017-12-23 16:40] VITALS: O2SAT 94
[2017-12-23] MEDS: DOCUSATE SODIUM/SENNA 50/8.6MG TAB PO SCH (21:45)
[2017-12-23 22:50] VITALS: BP 160/75; PULSE 76; TEMP 36.9; O2SAT 94
[2017-12-24] MEDS: POLYETHYLENE (MIRALAX) 17 GM PACK PO SCH ×2 (05:41→12:00)
[2017-12-24 07:16] VITALS: BP 124/77; PULSE 85; TEMP 37.1; O2SAT 95
[2017-12-24] MEDS: ASPIRIN 81 MG ECTAB PO SCH (08:33)
[2017-12-24] MEDS: PANTOprazole SOD 40 MG TAB PO SCH (08:33)
[2017-12-24] MEDS: ROSUVASTATIN CALCIUM 10 MG TAB PO SCH (08:33)
[2017-12-24] MEDS: POTASSIUM CHLORIDE 20 MEQ TABCR PO SCH (08:33)
[2017-12-24] MEDS: HYDROCHLOROTHIAZIDE 50 MG TAB PO SCH (08:33)
[2017-12-24] MEDS: DILTIAZEM HCL 120 MG EXT REL CAP PO SCH (08:34)
[2017-12-24] MEDS: INSULIN GLARGINE SOLOSTAR 100 UNITS/ML 3 ML PEN SC SCH (08:38)
[2017-12-24] MEDS: INSULIN ASPART 100 UNITS/ML 3 ML PEN SC SCH ×2 (08:38→12:56)
[2017-12-24 09:03] VITALS: BP 124/77; PULSE 85; TEMP 37.1; O2SAT 95
--- NOTE | 2017-12-24 12:33 | Discharge Summary ---
Orthopedic Discharge Summary Admission Date/Reason Dec 21, 2017 at 11:00 Spinal Stenosis. Discharge Date/Disposition Dec 24, 2017 Home Diagnosis Principal Diagnosis: Lumbar spinal stenosis Admission Physical Exam As per Admitting History & Physical. Hospital Course Patient underwent lumbar decompression and fusion tolerated this well was taken to the orthopedic floor postoperatively. Postoperative day #1 he was up in amatory progressed nicely through postoperative day #2. Subsequently he was discharged postop day number Discharge Instructions Please refer to the electronic Patient Visit Report (Discharge Instructions) for additional information.
== END 2017-12-24 13:09 | disposition home or self-care (01) | DRG 454 ==
LOC: C.ACU 10:46 → C.3E 11:00 → ENRESERV 17:40
PROVIDERS: ADMIT Orthopaedic Surgery Orthopaedic Surgery of the Spine; ATTEND Orthopaedic Surgery Orthopaedic Surgery of the Spine
PROC: 0ST40ZZ Resection of Lumbosacral Disc, Open Approach (ICD-10-PCS; principal; 2017-12-21 12:45)
PROC: 0SG30AJ Fusion of Lumbosacral Joint with Interbody Fusion Device, Posterior Approach, Anterior Column, Open Approach (ICD-10-PCS; principal; 2017-12-21 12:45)
PROC: 01NB0ZZ Release Lumbar Nerve, Open Approach (ICD-10-PCS; principal; 2017-12-21 12:45)
PROC: 0SG3071 Fusion of Lumbosacral Joint with Autologous Tissue Substitute, Posterior Approach, Posterior Column, Open Approach (ICD-10-PCS; principal; 2017-12-21 12:45)
DX: M48.061 Spinal stenosis, lumbar region without neurogenic claudication (principal); N17.9 Acute kidney failure, unspecified; M43.16 Spondylolisthesis, lumbar region; N18.3 Chronic kidney disease, stage 3 (moderate); E11.65 Type 2 diabetes mellitus with hyperglycemia; T38.0X5A Adverse effect of glucocorticoids and synthetic analogues, initial encounter; E11.22 Type 2 diabetes mellitus with diabetic chronic kidney disease; I12.9 Hypertensive chronic kidney disease with stage 1 through stage 4 chronic kidney disease, or unspecified chronic kidney disease; K21.9 Gastro-esophageal reflux disease without esophagitis; E78.5 Hyperlipidemia, unspecified; F17.220 Nicotine dependence, chewing tobacco, uncomplicated; Z79.899 Other long term (current) drug therapy; Z79.84 Long term (current) use of oral hypoglycemic drugs; Z79.82 Long term (current) use of aspirin; Z88.6 Allergy status to analgesic agent; Z88.5 Allergy status to narcotic agent; Z88.8 Allergy status to other drugs, medicaments and biological substances; Z83.3 Family history of diabetes mellitus; Z82.49 Family history of ischemic heart disease and other diseases of the circulatory system

== ENCOUNTER 2024-12-12 07:03 | Observation (INO) ==
--- NOTE | 2024-11-20 12:13 | PAT Medication Instructions ---
Medication Instructions Date of Service November 20, 2024 Home Medications allopurinol 100 mg tablet 100 mg PO QAM aspirin 81 mg tablet,delayed release 81 mg PO QAM diltiazem HCl 240 mg capsule,extended release 24 hr 240 mg PO QAM glimepiride 4 mg tablet 4 mg PO QAM hydrochlorothiazide 25 mg tablet 12.5 mg PO QAM levothyroxine 25 mcg tablet 25 mcg PO QAM magnesium 100 mg tablet 500 mg PO QAM metformin 1,000 mg tablet 1,000 mg PO QAM omega-3 fatty acids 1,000 mg PO QAM pantoprazole 40 mg tablet,delayed release 40 mg PO QAM pregabalin 100 mg capsule 100 mg PO BID rosuvastatin 10 mg tablet 10 mg PO QAM ASK your prescriber and surgeon aspirin 81 mg tablet,delayed release 81 mg PO QAM STOP taking 2 weeks before surgery (or as soon as possible if surgery is within 2 weeks) omega-3 fatty acids 1,000 mg PO QAM DO NOT take the morning of surgery glimepiride 4 mg tablet 4 mg PO QAM hydrochlorothiazide 25 mg tablet 12.5 mg PO QAM magnesium 100 mg tablet 500 mg PO QAM metformin 1,000 mg tablet 1,000 mg PO QAM Take morning of surgery With a small sip of water, OTHERWISE NOTHING TO EAT OR DRINK AFTER MIDNIGHT: allopurinol 100 mg tablet 100 mg PO QAM diltiazem HCl 240 mg capsule,extended release 24 hr 240 mg PO QAM levothyroxine 25 mcg tablet 25 mcg PO QAM pantoprazole 40 mg tablet,delayed release 40 mg PO QAM pregabalin 100 mg capsule 100 mg PO BID rosuvastatin 10 mg tablet 10 mg PO QAM Take evening before surgery pregabalin 100 mg capsule 100 mg PO BID Other Notes If you have any questions please call us at [phone] or [phone] or [phone] or [phone]
--- NOTE | 2024-11-26 14:16 | Anesthesiology Consultation ---
Date of Service November 26, 2024 Assessment & Plan (1) Encounter for pre-operative examination: Plan - awaiting PCP pre-operative evaluation 11/29/24, Dr. Myke Blackwood-PAT testing to be faxed to PCP office. - cardiology office visit 01/11/24: "...1 year f/u carotids...12/2023 carotids- mild < 50% bilat ICA stenosis, antegrade vertebral flow bilat...coronary artery disease-mild non-obstructive disease...mild bilat ICA stenosis, cont Crestor, follow biannually..." Chart Review Chart Review: Pending: Refer to Additional Notes / Consult section and Patient seen in Pre Admission Testing Teaching & Discussion Pre-Anesthesia Teaching/Discussion Notes: Instructed NPO after midnight before surgery, except medications with 15 cc of water. Medication instructions provided according to the PAT guidelines. History Surgery Operation Date: 12/12/24 07:00 Proposed Procedures p Right Total Knee Arthroplasty - Jet Payton MD Height/Weight Height: 5 ft 7 in Weight: 84.4 kg Allergies Allergy/AdvReac Type Severity Reaction Status Date / Time carisoprodol Allergy Unknown HIVES Verified 11/12/24 13:13 codeine Allergy Unknown HIVES Verified 11/12/24 13:13 oxycodone AdvReac Unknown sees bugs, Verified 11/12/24 13:13 hallucinated Medications Home Medications Medication Instructions Recorded Confirmed Last Taken allopurinol 100 mg tablet 100 mg PO QAM 11/12/24 11/12/24 Unknown aspirin 81 mg tablet,delayed 81 mg PO [facility] 11/12/24 11/12/24 Unknown release diltiazem HCl 240 mg 240 mg PO QA 11/12/24 11/12/24 Unknown capsule,extended release 24 hr glimepiride 4 mg tablet 4 mg PO QAM 11/12/24 11/12/24 Unknown hydrochlorothiazide 25 mg tablet 12.5 mg PO QAM 11/12/24 11/12/24 Unknown levothyroxine 25 mcg tablet 25 mcg PO QAM 11/12/24 11/12/24 Unknown magnesium 100 mg tablet 500 mg PO QAM 11/12/24 11/12/24 Unknown metformin 1,000 mg tablet 1,000 mg PO QAM 11/12/24 11/12/24 Unknown omega-3 fatty acids 1,000 mg PO QAM 11/12/24 11/12/24 Unknown pantoprazole 40 mg tablet,delayed 40 mg PO QAM 11/12/24 11/12/24 Unknown release pregabalin 100 mg capsule 100 mg PO BID 11/12/24 11/12/24 Unknown rosuvastatin 10 mg tablet 10 mg PO QAM 11/12/24 11/12/24 Unknown Past Medical History Medical History CAD (coronary artery disease) non-obstructive per cardiology records CKD (chronic kidney disease) GERD (gastroesophageal reflux disease) controlled, stable per pt History of gout History of kidney stones History of shingles HTN (hypertension) controlled, stable per pt Hyperlipemia Hypothyroid Type 2 diabetes mellitus NIDDM Patient denies h/o stroke, seizures, heart attack, heart failure, blood clots/DVTs or blood transfusions. Exercise / Class Metabolic Activity II 4-5 Yardwork/Stairs/Walk up hill (denies chest discomfort or shortness of breath with one flight of stairs) Past Family History Family History Sister Family history of myocardial infarction Brother Family history of myocardial infarction in first degree male relative before 55 years of age age 37 Past Surgical History Surgical History History of cardiac cath approx 2013, due to family hx. No findings. History of colonoscopy History of endoscopy pt suspects unable to verify. History of left knee surgery x2 History of lithotripsy multiple History of lumbar spinal fusion History of right knee surgery History of right shoulder replacement History of urologic surgery for kidney stone, hx stent. Past Anesthesia History No Hx of Anesthesia Complications and No Family Hx of Anesthesia Complications History of PONV No Hx of Motion Sickness and History of PONV (with shoulder surgery-patient attributes that to pain medication) Social History Smoking Status: Never smoker Smoking cigarettes per day: chew daily/advised npo. Hx Alcohol Use: Yes alcohol intake frequency: holidays/special occasions only Hx Substance Use: No substance use type: does not use Review of Systems Snoring, denies witnessed apneas. Patient denies chest pain, shortness of breath, dyspnea on exertion, fever, chills, cough, wheezing, or palpitations. Physical Exam Vital Signs Vitals BP 110/70 P 67 TEMP 98.1 SP02 97% on RA RESP 18 Physical Patient resting comfortably in chair in no acute distress, alert and oriented, responding appropriately throughout visit Full cervical extension range of motion without pain TMD 3.5 finger breadths Mallampati Score 2 Dentition: one chipped front teeth, denies loose teeth, caps/crowns, implants or bridges Lungs: normal respiratory effort. Good air movement, clear throughout to auscultation, no adventitious breath sounds Cardiac: regular rate and rhythm, no murmurs noted Carotid arteries: negative bruit bilat Lab Results Anesthesia Preop Results Results Anesthesia Widget: WBC 7.47 K/ul (4.8-10.8) 11/26/24 Hgb 13.0 g/dl (14.0-18.0) L 11/26/24 Hct 39.2 % (42.0-52.0) L 11/26/24 Plt 224 K/uL (130-400) 11/26/24 Na 141 mmol/L (136-145) 11/26/24 K 4.6 mmol/L (3.5-5.1) 11/26/24 Cl 104 mmol/L (98-107) 11/26/24 CO2 28 mmol/L (21-32) 11/26/24 BUN 30 mg/dl (6-23) H 11/26/24 Creat 2.09 mg/dl (0.6-1.4) H 11/26/24 Glucose Level 147 mg/dl (70-99(Fasting)) H 11/26/24 PT 10.8 Seconds (9.0-12.0) 11/26/24 PTT 28 Seconds (21-31) 11/26/24 INR 1.0 (0.9-1.1) 11/26/24 Urine Color Yellow 11/26/24 Urine Appearance Clear (Clear) 11/26/24 Urine pH 5.5 (4.5-7.5) 11/26/24 Urine Specific [place] 1.028 (1.000-1.030) 11/26/24 Urine Protein Trace (Negative) H 11/26/24 Urine Glucose (UA) 3+ (Negative) H 11/26/24 Urine Ketones Negative (Negative) 11/26/24 Urine Blood Negative (Negative) 11/26/24 Urine Nitrite Negative (Negative) 11/26/24 Urine Bilirubin Negative (Negative) 11/26/24 Urine Urobilinogen Negative (Negative) 11/26/24 Urine Leukocyte Esterase Negative (Negative) 11/26/24 Urine WBC (Auto) 0-5 /hpf (0-5) 11/26/24 Urine RBC (Auto) 0-2 /hpf (0-2) 11/26/24 Urine Hyaline Casts (Auto) 0-2 /lpf (0-2) 11/26/24 Urine Epithelial Cells (Auto) 0-2 /hpf (0-2) 11/26/24 Urine Bacteria (Auto) None Seen (None Seen) 11/26/24 Blood Type A Positive 11/26/24 Antibody Screen NEGATIVE 11/26/24 Testing Laboratory Results 11/07/24 A1c: 7.1% Electrocardiogram Date: 11/26/24 NSR, rate 65 bpm Low voltage QRS Poor R wave progression, consider anterior FL vs lead placement vs LVH Echocardiogram Date: 01/09/23 EF 55-60% Borderline LVH Mildly enlarged LA Mild mitral regurgitation Mild tricuspid regurgitation Mild pulmonic regurgitation Grade I diastolic dysfunction
--- NOTE | 2024-12-03 08:38 | History & Physical Report ---
Date of Service December 03, 2024 Assessment & Plan (1) Osteoarthritis of right knee: Plan: PRE-OP Diagnosis: Right knee degenerative joint disease Planned Procedure: Right total knee arthroplasty Plan: Patient is scheduled to undergo this procedure at the [facility] with Dr. Payton on December 12, 2024. Risks and complications of the procedure such as: Infection, bleeding, pain, scarring, nerve blood vessel damage, weakness, wound problems, stiffness, incomplete relief of symptoms, hardware failure, hardware loosening, wear, fracture, tendon or ligament injury, blood clots, embolism, cardiac, stroke and were explained to the patient at his visit today and informed consent for the procedure was obtained. 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 Patient is scheduled to meet with anesthesia at the hospital later this afternoon. While there he will obtain a CBC with differential, PT/INR, blood type and screen, urinalysis, urine culture and sensitivity, EKG and a nasal culture for MRSA. He is hemoglobin A1c and complete metabolic panel are both up-to-date. During today's visit we reviewed the total knee packet. I provided the patient with rasta matos to obtain obtaining a handicap placard for his vehicle. I provided him with information about lectures offered by [facility] in regards to joint replacement surgery. I provided her with an order to obtain a walker. I recommended that he purchase a shower chair and raised toilet seat. We discussed discharge planning from the hospital. Patient states he will most likely do in-home physical therapy with his niece who is a physical therapist. I advised the patient that he will be provided with a prescription for narcotic pain medication for postoperative pain control. We will have him on aspirin twice daily for the first 30 days postoperatively for blood clot prevention. Patient is scheduled for his 2-week postoperative follow-up visit with myself on December 25. If he has questions or concerns should arise prior to his surgery, he will contact clinic. This chart was completed utilizing [employer] voice recognition software. Grammatical errors, random word insertions, pronoun errors, and in complete sentences are an occasional consequence of the system. Any questions or concerns about the content, text, or information contained within the body of this dictation should be addressed directly to the physician for clarification. History of Present Illness Chief Complaint: Chief Complaint: Right knee pain Primary Care Provider: Renaldo Noonan DO History of Present Illness (including history relevant to procedure): This 74-year-old male presents to clinic today for his preoperative history and physical. Patient complains of a longstanding history of severe right knee pain. He states that he had surgery on the knee back in the early s. 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 States that his range of motion is very limited. Patient has failed conservative management with corticosteroid injections and hyaluronic acid injections. He is elected to proceed with surgical intervention. Review Of Systems: A 12 point review of systems is performed and is unremarkable except for those things stated in the HPI past medical history. Past Medical History: Problems: Right knee DJD Rash Tobacco user H/O: skin disorder Keratosis follicularis Hypertension Hypercholesterolemia Type 2 diabetes Renal calculi Procedure History Procedure Procedure Date Comments Injection back - 2017 Excision 12/24/2020 - pilar cyst occipital scalp Surgery 11/2017 Procedure - therapeutic Left knee surgery x 2 Right knee surgery x 1 Cardiac catheterization Bilateral carotid endarterectomy 2012 - right shoulder total replacement Allergies and Sensitivities: Soma Compound with Codeine(Hives) Current Home Meds: (Last Updated 11/26 13:03) allopurinol (allopurinol 100 mg oral tablet) 100 mg PO bid aspirin (aspirin 81 mg oral tablet) 81 mg PO Daily clobetasol topical (clobetasol 0.05% topical cream) 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 diltiazem (Dilt-XR) 240 mg PO Daily ferrous sulfate glimepiride (glimepiride 4 mg oral tablet) 4 mg PO Daily hydrochlorothiazide (hydrochlorothiazide 50 mg oral tablet) 50 mg PO Daily metFORMIN 500 mg PO Daily omega-3 polyunsaturated fatty acids (Fish Oil 1200 mg oral capsule) 1,200 mg PO Daily pantoprazole (pantoprazole 40 mg oral delayed release tablet) 40 mg PO Daily potassium chloride (Klor-Con M20 oral tablet, extended release) 20 mEq PO Daily rosuvastatin (Crestor 10 mg oral tablet) 10 mg PO qhs triamcinolone topical (triamcinolone 0.1% topical cream) APPLY TOPPICALLY TO TRUNK AREA TWICE A DAY as needed for dermatitis Initial Wt: 11/26 85.5 kg 188 lb Allergies Allergy/AdvReac Type Severity Reaction Status Date / Time carisoprodol Allergy Unknown HIVES Verified 11/12/24 13:13 codeine Allergy Unknown HIVES Verified 11/12/24 13:13 oxycodone AdvReac Unknown sees bugs, Verified 11/12/24 13:13 hallucinated Home Medications Medication Instructions Recorded Confirmed Type allopurinol 100 mg tablet 100 mg PO QAM 11/12/24 11/12/24 History aspirin 81 mg tablet,delayed 81 mg PO QAM 11/12/24 11/12/24 History release diltiazem HCl 240 mg 240 mg PO QAM 11/12/24 11/12/24 History capsule,extended release 24 hr glimepiride 4 mg tablet 4 mg PO QAM 11/12/24 11/12/24 History hydrochlorothiazide 25 mg tablet 12.5 mg PO QAM 11/12/24 11/12/24 History levothyroxine 25 mcg tablet 25 mcg PO QAM 11/12/24 11/12/24 History magnesium 100 mg tablet 500 mg PO QAM 11/12/24 11/12/24 History metformin 1,000 mg tablet 1,000 mg PO QAM 11/12/24 11/12/24 History omega-3 fatty acids 1,000 mg PO QAM 11/12/24 11/12/24 History pantoprazole 40 mg tablet,delayed 40 mg PO QAM 11/12/24 11/12/24 History release pregabalin 100 mg capsule 100 mg PO BID 11/12/24 11/12/24 History rosuvastatin 10 mg tablet 10 mg PO QAM 11/12/24 11/12/24 History Past Med/Surg History Problem List (Updated 12/03/24 @ 08:37 by Td Pulliam PA-C) Osteoarthritis of right knee Encounter for pre-operative examination Lumbar stenosis with neurogenic claudication (Chronic) GERD (gastroesophageal reflux disease) (Chronic) HLD (hyperlipidemia) (Chronic) HTN (hypertension) (Chronic) Diabetes mellitus, type II (Chronic) Medical History CKD (chronic kidney disease) CAD (coronary artery disease) non-obstructive per cardiology records History of kidney stones Hypothyroid History of shingles History of gout GERD (gastroesophageal reflux disease) controlled, stable per pt Hyperlipemia HTN (hypertension) controlled, stable per pt Type 2 diabetes mellitus NIDDM Surgical History History of cardiac cath approx 2013, due to family hx. No findings. History of urologic surgery for kidney stone, hx stent. History of lithotripsy multiple History of right shoulder replacement History of right knee surgery History of left knee surgery x2 History of endoscopy pt suspects unable to verify. 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 Extraocular movements are intact Throat: Posterior oropharynx clear with absence of edema, erythema or exudate. 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 He has staining of all of his teeth but no abscesses or open dental areas. Cardiac: Regular rate and rhythm with no murmurs or gallops appreciated Lungs: Clear to auscultation throughout with no wheezing, rales or rhonchi Abdomen: Mildly obese, nondistended, nontender NABS Extremities: Right knee; range of motion is from 8 degrees of extension to 115 degrees of flexion. He has visible varus malalignment along with some slight medial joint line tenderness. His patellas are mobile due to arthritic change. He is neurovascularly intact. Neuro: Cranial nerves II through XII are intact no motor or sensory deficit Skin: Normal in appearance no open skin areas or discharge Results & Data Diagnostic Findings Studies (relevant to the procedure): 3views of theright kneeobtained show bone on bone arthritis, not significantly changed from prior imaging in December 2023. Bone loss in medial tibial plateau. No evidence of fracture. Bipartite type patella, unchanged from prior.
[~2024-12-12 07:03] MED LIST changes: -ARTHRO 7 PO; -ASPI81TA28 PO; +BUPIVACAINE 0.5 % 5 MG/1 ML PF 10ML VIAL ONE; -CEFAZOLIN 1000MG IV PUSH 7.5 ML IV SCH; -CEFAZOLIN 2000MG IV PUSH 15 ML IV SCH; -CLB/200 PO; -CRS/10 PO; -DILT-115 PO; -GLC/500 PO; -GLIM4TAB2 PO; -HYDR50TA3 PO; -LACTATED RINGER'S 1000ML 1,000 ML IV SCH; -NAPR1TAB9 PO; -OMEG10007 PO; -PANT40TA PO; -POTA20TA16 PO; +ROPIVACAINE 0.5% 5 MG/ML 30 ML VIAL ONE
--- OUTSIDE RECORDS SUMMARY | 2024-12-12 07:12 | External Medical Summary | Continuity of Care Document ---
Author Name Unknown Organization [id number] Address [address] [place] [id number] Care Team Providers Care Tip Puncher Name Role Phone Myke Blackwood Primary Care Physician [phone] Encounter [facility] [id number] Date(s): 11/26/24 - 11/26/24 [id number] [address] [place] [id number] Encounter Diagnosis Preop examination(Discharge Diagnosis) - 11/26/24 Right knee DJD(Discharge Diagnosis) - 11/26/24 Discharge Disposition: Home or Self Care Attending Physician: ANH Pulliam Dennis Referring Physician: MD Fito, Jet Serna Allergies, Adverse Reactions, Alerts Substance Criticality Severity Reaction Reaction Severity Status Soma Compound with Codeine Hives Active Medications allopurinol 100 mg oral tablet Start: 01/04/22 10:56:00 AM EST, 1 tab, PO, bid Start Date: 01/04/22 Status: Ordered aspirin 81 mg oral tablet Start: 01/05/16 1:28:00 PM EST, 1 tab, PO, Daily, tab Start Date: 01/05/16 Status: Ordered clobetasol 0.05% topical cream Start: 01/04/17 11:33:23 AM EST, 1 appl, topical, bid, Disp# 60 g, Refills: 1, 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 Start Date: 01/04/17 Stop Date: 02/01/17 Status: Ordered Crestor 10 mg oral tablet Start: 11/05/13 1:28:00 PM EST, 1 tab, PO, qhs Start Date: 11/05/13 Status: Ordered Dilt-XR Start: 01/05/16 1:29:00 PM EST, 240 mg =, PO, Daily Start Date: 01/05/16 Status: Ordered ferrous sulfate Start: 01/04/22 10:55:00 AM EST Start Date: 01/04/22 Status: Ordered Fish Oil 1200 mg oral capsule Start: 01/05/16 1:29:00 PM EST, 1 cap, PO, Daily Start Date: 01/05/16 Status: Ordered glimepiride 4 mg oral tablet Start: 11/05/13 1:28:00 PM EST, 1 tab, PO, Daily Start Date: 11/05/13 Status: Ordered hydrochlorothiazide 50 mg oral tablet Start: 11/05/13 1:28:00 PM EST, 1 tab, PO, Daily Start Date: 11/05/13 Status: Ordered Klor-Con M20 oral tablet, extended release Start: 11/05/13 1:28:00 PM EST, 1 tab, PO, Daily Start Date: 11/05/13 Status: Ordered metFORMIN Start: 01/05/16 1:28:00 PM EST, 500 mg =, PO, Daily Start Date: 01/05/16 Status: Ordered pantoprazole 40 mg oral delayed release tablet Start: 01/05/16 1:31:00 PM EST, 1 tab, PO, Daily Start Date: 01/05/16 Status: Ordered triamcinolone 0.1% topical cream Start: 08/17/24 1:01:00 PM EDT, See Instructions, Disp# 454 g, Refills: 1, APPLY TOPPICALLY TO TRUNK AREA TWICE A DAY as needed for dermatitis, Pharmacy: [facility]/pharmacy #[id number] Start Date: 08/17/24 Status: Ordered Mental Status 11/26/24 Barriers to Learning one year None evide nt Mandatory Health Literacy Documentation Yes Health Literacy Communication Barriers N ever Primary Language Senegalese Problem List Condition Confirmation Course Effective Dates Status Health St atus Informant Rash Confirmed Active H/O: skin disorder Confirmed Active Keratosis follicularis Confirmed Active Right knee DJD Confirmed Active Tobacco user Confirmed Active Diagnosis Diagnosis Type Effective Dates Health Status Clinical Service Informant Right knee DJD Discharge Diagnosis 11/26/24 Preop examination Discharge Diagnosis 11/26/24 Procedures Procedure Date Related Diagnosis Body Site Status Excision 1 12/24/20 Completed Surgery 11/2017 Completed Procedure - therapeutic 2 2012 Completed Injection back 3 Complete d 1pilar cyst occipital scalp 2right shoulder total replacement 71338 Vital Signs Most recent to oldest [Reference Range]: 1 Height 171 cm (11/26/24 1:04 PM) Patient Weight 85.5 kg (11/26/24 1:04 PM) Body Mass Index 29.24 kg/m2 (11/26/24 1:04 PM) Temperature [36.5-37.9 DegC] 36.8 DegC (11/26/24 1:04 PM) Heart Rate 71 bpm (11/26/24 1:04 PM) Blood Pressure 128/78mmHg (11/26/24 1:04 PM) Social History Social History Type Response Smoking Status Never smoked cigaret hafsa Sex Male Sex Representation Male (finding) Pre-OP H & P * ANH Pulliam, Td: PERFORM Event Display: Pre-OP H & P Authored Date: [id number] PRE-OPERATIVE HISTORY AND PHYSICAL Name: JET RANDOLPH II Patient Number: [id number] : 1950 Date of Service: 11/26/2024 PRE-OP Diagnosis: Right knee degenerative joint disease Planned Procedure: Right total knee arthroplasty Chief Complaint: Right knee pain History of Present Illness (including history relevant to procedure): This 74-year-old male presents to clinic today for his preoperative history and physical. Patient complains of a longstanding history of severe right knee pain. He states that he had surgery on the knee back in the early s. 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 States that his range of motion is very limited. Patient has failed conservative management with corticosteroid injections and hyaluronic acid injections. He is elected to proceed with surgical intervention. Review Of Systems: A 12 point review of systems is performed and is unremarkable except for those things stated in the HPI past medical history. Past Medical History: Problems: Right knee DJD Rash Tobacco user H/O: skin disorder Keratosis follicularis Hypertension Hypercholesterolemia Type 2 diabetes Renal calculi Procedure History Procedure Procedure Date Comments Injection back - 2017 Excision 12/24/2020 - pilar cyst occipital scalp Surgery 11/2017 Procedure - therapeutic Left knee surgery x 2 Right knee surgery x 1 Cardiac catheterization Bilateral carotid endarterectomy 2012 - right shoulder total replacement Allergies and Sensitivities: Soma Compound with Codeine(Hives) Current Home Meds: (Last Updated 11/26 13:03) allopurinol (allopurinol 100 mg oral tablet) 100 mg PO bid aspirin (aspirin 81 mg oral tablet) 81 mg PO Daily clobetasol topical (clobetasol 0.05% topical cream) 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 diltiazem (Dilt-XR) 240 mg PO Daily ferrous sulfate glimepiride (glimepiride 4 mg oral tablet) 4 mg PO Daily hydrochlorothiazide (hydrochlorothiazide 50 mg oral tablet) 50 mg PO Daily metFORMIN 500 mg PO Daily omega-3 polyunsaturated fatty acids (Fish Oil 1200 mg oral capsule) 1,200 mg PO Daily pantoprazole (pantoprazole 40 mg oral delayed release tablet) 40 mg PO Daily potassium chloride (Klor-Con M20 oral tablet, extended release) 20 mEq PO Daily rosuvastatin (Crestor 10 mg oral tablet) 10 mg PO qhs triamcinolone topical (triamcinolone 0.1% topical cream) APPLY TOPPICALLY TO TRUNK AREA TWICE A DAYas needed for dermatitis Vitals: No Vital Signs Data Available Weights: Last Updated 11/26/24 13:04 Date Temp Pulse BP RR SpO2 FIO2 Date Wt(kg) Wt(lb) 11/26 13:04 85.5 188 11/26 13:04 85.5 188 24 Hr Tmax: No Data Available Initial Wt: 11/26 85.5 kg 188 lb Physical Exam: (relevant to the procedure, including heart and lung evaluation) General: Alert and oriented x 3 with proper grooming and hygiene Eyes: Pupils are equal and reactive to light with accommodation. Extraocular movements are intact Throat: Posterior oropharynx clear with absence of edema, erythema or exudate. 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 He has staining of all of his teeth but no abscesses or opendental areas. Cardiac: Regular rate and rhythm with no murmurs or gallops appreciated Lungs: Clear to auscultation throughout with no wheezing, rales or rhonchi Abdomen: Mildly obese, nondistended, nontender NABS Extremities: Right knee; range of motion is from 8 degrees of extension to 115 degrees of flexion. He has visible varus malalignment along with some slight medial joint line tenderness. His patellas are mobile due to arthritic change. He is neurovascularly intact. Neuro: Cranial nerves II through XII are intact no motor or sensory deficit Skin: Normal in appearance no open skin areas or discharge Studies (relevant to the procedure): 3views of theright kneeobtained show bone on bone arthritis, not significantly changed from prior imaging in December 2023. Bone loss in medial tibial plateau. No evidence of fracture. Bipartite type patella, unchanged from prior. Plan: Patient is scheduled to undergo this procedure at the [facility] with Dr. Payton on December 12, 2024. Risks and complications of the procedure such as: Infection, bleeding, pain, scarring, nerve blood vessel damage, weakness, wound problems, stiffness, incomplete reliefof symptoms, hardware failure, hardware loosening, wear, fracture, tendon or ligament injury, bloodclots, embolism, cardiac, stroke and were explained to the patient at his visit today and informed consent for the procedure was obtained. 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 Patient is scheduled to meet with anesthesia at the hospital later this afternoon. While there he will obtain a CBC with differential, PT/INR, blood type and screen, urinalysis, urine culture and sensitivity, EKG and a nasal culture for MRSA. He is hemoglobin A1c and complete metabolic panel are both up-to-date. During today's visit we revi ewed the total knee packet. I provided the patient with paperwork to obtain obtaining a handicap placard for his vehicle. I provided him with information about lectures offered by [facility] in regards to joint replacement surgery. I provided her with an order to obtain a walker. I recommended that he purchase a shower chair and raised toilet seat. We discussed discharge planning from the hospital. Patient states he will most likely do in- home physical therapy with his niece who is a physical therapist. I advised the patient that he will be provided with a prescription for narcotic pain medication for postoperative pain control. We will have him on aspirin twice daily for the first 30 days postoperatively for blood clot prevention. Patient is scheduled for his 2-week postoperative follow-up visit with myself on December 25. If he has questions or concerns should arise prior to his surgery, he will contact clinic. This chart was completed utilizing [employer] voice recognition software. Grammatical errors,random word insertions, pronoun errors, and in complete sentences are an occasional consequence of the system. Any questions or concerns about the content, text, or information contained within the body of this dictation should be addressed directly to the physician for clarification. Electronic Signature on File CC: Bernarda Weston PA-C [facility] [address] [place] [id number] * Electronically Reviewed/Signed by: Td Pulliam PA-C Author Signature Dt/Tm:11/28/2024 04:59 PM Division of Sports Medicine Electronically Reviewed/Signed by: Jet Payton MD Cosigner Signature Dt/Tm: 11/28/2024 05:24PM Division of Sports Medicine [place] Patient Care team information Care Team Personnel Name: MD Blackwood Brandon M Position: Referring Member Role: Primary Care Provider Address: [place], [facility], [place] [address] [place] Care Team Related Persons Name: REDDY RANDOLPH
[2024-12-12] MEDS: Scopolamine 1 MG TDSY TD SCH (07:38)
[2024-12-12] MEDS: LR 60ML/HR IV SCH (07:38)
[2024-12-12] MEDS: CeleBREX 200 MG CAP PO SCH (07:38)
[2024-12-12] MEDS: FAMOTIDINE 20 MG TAB PO SCH (07:38)
[2024-12-12] MEDS: ACETAMINOPHEN 500 MG TAB PO SCH ×2 (07:38→14:35)
[2024-12-12] MEDS: traMADol HCL 50 MG TABLET PO SCH (07:44)
[2024-12-12] MEDS: LR 500ML BOLUS, THEN 15ML/HR IV SCH (07:47)
[2024-12-12] MEDS ORDERED: ONDANSETRON INJ 2 MG/ML 2 ML VIAL IV PRN ×2 (08:14→12:14)
[2024-12-12] MEDS ORDERED: ePHEDrine sulfate 50 MG/ML AMP IV PRN (08:14)
[2024-12-12] MEDS ORDERED: ATROPINE SULFATE 0.1 MG/ML 10ML SYR IV PRN (08:14)
[2024-12-12] MEDS ORDERED: fentaNYL citrate PF 100 MCG/2 ML VIAL IV PRN (08:14)
[2024-12-12] MEDS ORDERED: MIDAZOLAM HCL 1 MG/ML 2ML VIAL ONE (08:17)
[2024-12-12] MEDS ORDERED: PROPOFOL IV EMULSION 10 MG/ML 20 ML VIAL IV ONE ×2 (08:18→10:54)
--- NOTE | 2024-12-12 08:44 | History & Physical Bridge Note ---
Date of Service December 12, 2024 History & Physical Bridge Note I have examined the patient, reviewed the History & Physical and in the interval since the performance of the History & Physical I have noted the following changes of clinical significance: no changes noted
[2024-12-12] MEDS: TRANEXAMIC ACID 1,000 MG **IV Pre-op IV SCH (09:02)
[2024-12-12] MEDS: ceFAZolin 2000MG 2,000 MG/15 ML SYR IV SCH ×2 (09:24→17:26)
[2024-12-12] MEDS: ROPIVACAINE 0.5% HCL/PF 246 MG, Ketorolac (*for OR use only*) 30 MG, EPINEPHrine 30MG/3... INFIL SCH (11:28)
[2024-12-12] MEDS: ORTHO JOINT ANESTHETIC ONE (11:29)
[2024-12-12] MEDS: TRANEXAMIC ACID 1,000 MG **IV Intra-op IV SCH (11:33)
[2024-12-12] MEDS ORDERED: diphenhydrAMINE 50 MG/ML VIAL IV PRN (12:14)
[2024-12-12] MEDS ORDERED: MAGNESIUM HYDROXIDE SUSP 30 ML UDC PO PRN (12:14)
[2024-12-12] MEDS ORDERED: bisacodyL 10 MG SUPP PR PRN (12:14)
[2024-12-12] MEDS ORDERED: NALOXONE HCL 0.4 MG/1 ML VIAL/CARP IV PRN (12:14)
[2024-12-12] MEDS ORDERED: ALUMINUM/MAGNESIUM SUSP 30 ML UDC PO PRN (12:14)
[2024-12-12] MEDS ORDERED: METOCLOPRAMIDE HCL INJ 5 MG/ML 2 ML VIAL IV PRN (12:14)
[2024-12-12] MEDS ORDERED: HYDROmorphone INJ 1 MG/ML SYRINGE IV PRN (12:14)
[2024-12-12] MEDS ORDERED: TAMSULOSIN HCL 0.4 MG CAP PO PRN (12:14)
[2024-12-12] MEDS ORDERED: PHARMACY GLYCEMIC MGMT CONSULT PRN (12:14)
--- NOTE | 2024-12-12 12:14 | Operative Report ---
Post Operative Report Pre & Post Diagnosis Operation Date: 12/12/24 09:10 Pre-Op Diagnosis: Right Knee Ostearthritis Post-Op Diagnosis: Right Knee Ostearthritis I identified the patient and participated in the time-out.: Yes Procedure Operation Date: 12/12/24 09:10 Actual Procedures p Right Total Knee Arthroplasty, Excision of accessory ossicle from patella. (Right) - Jet Payton MD Surgeon Jet Payton MD Currency Counter Elizabeth Pulliam PA-C Estimated Blood Loss 50 Findings Consistent with Post-Op Diagnosis Specimens Knee bone and soft tissue Description of Procedure I was present during the entire case assisting with positioning, prepping, draping, wound retraction, wound closure, dressing and immobilizer placement. No fellow present. Please see Dr. Payton procedure note for specifics of the case. I attest to the content of the Intraoperative Record and any orders documented therein. Any exceptions are noted below.
--- NOTE | 2024-12-12 12:33 | Anesthesiology Progress Note ---
Date of Service December 12, 2024 Anesthesia Post Procedure Vital Signs Vital Signs: Temp Pulse Pulse Resp BP Pulse Ox O2 Del Method 12/12/24 12:30 56 L 15 97/75 L 100 Room Air 12/12/24 12:20 56 L 14 131/77 95 Room Air 12/12/24 12:11 36.2 C L 52 L 18 130/76 100 Oxymask 12/12/24 07:29 36.5 C 65 20 146/83 H 97 Room Air O2 Flow Rate 12/12/24 12:30 12/12/24 12:20 12/12/24 12:11 5 12/12/24 07:29 Pain Intensity Right Knee: Pain Intensity: 0 Notes Mental Status: alert / awake / arousable Patient Amnestic to Procedure: Yes Nausea / Vomiting: adequately controlled Pain: adequately controlled Airway Patency, RR, SpO2: stable & adequate BP & HR: stable & adequate Hydration State: stable & adequate Neuraxial Anesthesia: was administered and sensory block is resolving Anesthetic Complications: no major complications apparent
--- NOTE | 2024-12-12 12:36 | Operative Report ---
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 22 modifier should be added to the total knee arthroplasty CPT code due to increased time and effort as a result of his severe varus malalignment and proximal tibial bone loss. This required additional dissection, additional time in order to perform ligament balancing, to make accessory bone cuts in order to place augment, and the use a revision tibial component. Surgeon Jet Payton MD Art Instructor MICHAEL Pulliam PA-C. No resident or fellow was available to assist. Estimated Blood Loss 50 Findings Consistent with Post-Op Diagnosis Specimens Left knee bone and soft tissue contents Anesthesia Type Spinal MAC Complications none Disposition Disposition: Recovery Room Indications 74-year-old male, with right knee osteoarthritis refractory to conservative management. Clinical exam reveals him to walk with a varus thrust consistent with lateral ligament laxity. Additionally, he has a flexion contracture of approximately 15 degrees. His x-rays show a bipartite patella, joint space narrowing, marginal osteophyte formation, severe varus malalignment measured at approximately 18 degrees, and bone loss from the medial tibial plateau. I had a long discussion with him about his diagnosis and treatment options. Surgery is indicated to realign his knee, relieve pain and promote function. After reviewing the risks and benefits of surgery, alternatives to surgery, and expected outcomes he elected proceed. All questions were answered. Informed consent was signed. Description of Procedure Patient was identified in the preoperative holding area where his surgical site was marked. He was given a spinal anesthetic and then brought back to the operating room was placed on the operating room table and exam under anesthesia was performed. This demonstrated patient's range of motion arc to be 15 to 100 degrees. Significant varus malalignment was again noted. He had about 2 to 3 mm of pseudolaxity to a valgus stress at 30 degrees. With the varus stress he did have an endpoint at 30 degrees. All bony prominences were padded. Perioperative antibiotics were administered. He was prepped and draped in the usual sterile fashion. Prior to incision a multidisciplinary timeout was called. All in the room were in agreement. I began by exsanguinating the limb with an Esmarch bandage. Tourniquet was plated 250 mmHg. Total tourniquet time for the case was approximately 120 minutes. A midline incision was made for distance of approximately 18 cm. This was slightly longer than typical in order to facilitate increased exposure given his malalignment. I dissected down to subcutaneous tissues to the level of the fascia. Full-thickness flaps were raised above the fascia. A medial parapatellar arthrotomy was performed. A medial release was performed of the deep MCL and the anterior aspect of the superficial MCL. This was more extensive than his typical again secondary to his varus malalignment and tight MCL. Synovitis from the suprapatellar pouch was removed. Patella was then everted and held with 2 towel clips. Inspection of the patella revealed full- thickness cartilage loss. The bipartite fragment was not visible through the articular surface.. Thickness was measured at 22 mm. Resection was performed. Thickness now measured 13 mm. The bipartite patella was evident after performing the saw cut. The superior lateral fragment was unstable. I was concerned that this unstable ossicle could be a pain generator for him after surgery. Therefore I felt it was in his best interest that I remove this. This piece of bone approximately 1.5 cm x 1 cm was shelled out from the underlying soft tissues in subperiosteal fashion preserving the extensor mechanism fibers. Another small osteophyte off the lateral aspect of the patella was removed. Patella was then sized to a 35. Drill holes were placed. The trial was placed. Thickness with the trial in place came back to 22 mm which I was happy with. Patellar trial was removed. The knee was then flexed up to 90 degrees. Inspection of the knee revealed eburnation of the medial femoral condyle and the medial tibial plateau with erosion from the most medial aspect of the tibial plateau. ACL was absent. Calcification was noted within the degenerated and macerated medial meniscus. Marginal osteophytes are noted on the tibia, femur and patella. Osteophytes were removed from the notch. The PCL was removed. Intramedullary guide was used in the femur. We performed a distal femoral resection at 10 mm with the guide set at 5 degrees of valgus which was our preoperative template. Patient's femur was then sized. He sized to a 7 femur. The guide was set at 3 degrees of external rotation off the posterior condylar axis to match his epicondylar axis. This 4 and 1 size 7 cutting block was then secured with 2 pins. Our anterior, posterior, and chamfer cuts were then performed while protecting collateral ligaments. Next, I turned my attention toward the tibia. Blunt Hohmann was placed posteriorly and the tibia was subluxated forward. Lateral meniscus was excised. The extramedullary tibial cutting jig was then placed. Due to the bone loss from the medial tibial plateau it was clear that an augment was going to be required in order to not remove excess lateral bone. The guide was set to remove 9 mm off the preserve lateral tibial plateau. The guide was pinned into position and the cut was made. As expected the eroded area of the medial tibia was not removed with a saw cut. Next, the knee was brought into full extension and the medial meniscus was removed. Lamina spreaders were placed. I had a trapezoidal shape extension gap with the smaller side medial secondary to the tight medial collateral ligament. Knee was placed and 90 degrees of flexion and similarly the medial side was tight. Therefore release of the MCL was indicated. He was brought back in full extension and a spinal needle was used to trephinate the MCL. This was done until we had a near rectangular extension block. With the knee in flexion the medial side was actually a little bit gapped more than the lateral side but this was a result of the subperiosteal peel of the MCL we had done earlier and was expected to correct at the time of wound closure. Spacers were placed and the patient was tighter in extension the knee was in flexion. I therefore elected to recut his femur in order to increase the extension gap. Pinholes were located and the distal cutting guide was slid over the pins. Another 2 mm of distal femur was resected. I then recut the chamfer cuts as well as the box cut. The extension and flexion gaps were now balanced. Given the fact that I was able to achieve adequate ligament balancing I elected to not use a revision component on the femur but I did need revision tibial component to deal with his medial bone loss. Femoral trial was placed in order to protect the cut surfaces. Lug holes were drilled in the distal femur. Tibia was then exposed. He sized to a 6 tibia. The revision tibial tray was then positioned to cover the cut tibial surface and pinned into position. Intramedullary drill was used to add a 50 mm long cemented stem. The boss reamer was then used. The cutting jig to perform our medial tibial resection was then placed down the intramedullary drill hole. This was then pinned to the proximal tibia. Asael wing was used to template for a cut. A 5 mm cut appeared to be adequate to remove the sclerotic medial tibial bone. This was done using the narrow sawblade. Once this was complete, the cutting jig was removed. A vertical cut was made and the wafer of bone was removed. Tibial surface was inspected. The bone was still little sclerotic so I elected to use a drill in order to facilitate cement interdigitation. Approximately 3 holes were made in the sclerotic bone. Our tibial trial was then assembled with the augments on the back table. We started with a six 6 mm poly. Knee was brought through a full range of motion. He was a little tight in extension so I elected to downsize him to a 5. We now were able to get him to full extension. I did use a Aviles elevator to release the posterior capsule laterally and proximally. Knee was stable in 90 degrees of flexion. There is no evidence of mid flexion instability. Therefore the trial polyethylene was removed. The keel punch was placed with the tibial component and external rotation in the midline lined up with the medial one third of the tibial tubercle. Trials were then removed. Posterior capsule was injected with a periarticular injection solution. Bone surfaces were irrigated while the components were assembled on the back table. Cement was then mixed. I began by cementing on the femur. This was done without difficulty. Excess cement was removed. A sponge was placed over the femur and the tibia was subluxated forward. Tibial component was then cemented. Excess cement was again removed. A trial 5 mm polyethylene was placed and the knee was held in full extension until the cement had completely cured. Patella was then cemented and held with a clamp again until the cement had completely cured. Dilute Betadine solution was allowed to soak in the knee for approximately 3 minutes. The remaining periarticular injection was placed in the subcutaneous tissues around her incision. Once the cement was hardened the knee was brought through a range of motion. His range of motion arc was from 0 to 130 degrees which I was very happy with. He was stable to varus and valgus stress throughout the range of motion. Clinically his alignment was neutral which I was happy with. Patellar tracking was excellent. Therefore, the trial tibial polyethylene was removed and a 5 mm thickness real polyethylene component was opened up and then impacted into the tibial tray which had been cleaned and dried. Tourniquet was then let down. Meticulous hemostasis was ensured. Wound was irrigated out with copious amounts normal saline. We then began to close. 0 Vicryl sutures were used in interrupted [id number] fashion for the medial retinaculum. #1 Vicryl suture was used for the patellar tendon and quadriceps tendon [id number] repair in running fashion. Once the arthrotomy is closed another 10 cc of the injection cocktail was placed into the knee. Deep dermis was then closed with interrupted 2-0 Vicryl sutures. Skin was closed with a Zipline and Dermabond. A Silverlon dressing was placed. Patient's sedation was then lifted and he was transferred to the recovery room in stable condition. Postoperative course: Patient will be admitted to the floor overnight for pain control and monitoring. He will be weightbearing as tolerated. Aspirin for DVT prophylaxis. I attest to the content of the Intraoperative Record and any orders documented therein. Any exceptions are noted below.
--- NOTE | 2024-12-12 12:47 | XRay Report ---
XR knee RT 1 or 2V routine CLINICAL HISTORY: Postoperative evaluation. COMPARISON: Right knee radiographs November 26, 2024. FINDINGS: Alignment of the total right knee arthroplasty is anatomic. There is no periprosthetic fra cture or unexpected radiopaque foreign body. IMPRESSION: Expected findings following total right knee arthroplasty. ACT 112: Negative or not required by law. Electronically signed by: Michoacano Choudhary M.D. 12/12/2024 12:45 PM
[2024-12-12] MEDS ORDERED: CARBOHYDRATES FOR HYPOGLYCEMIA PO PRN (13:00)
[2024-12-12] MEDS ORDERED: GLUCAGON FOR INJ 1 MG VIAL SQ PRN (13:00)
[2024-12-12] MEDS ORDERED: DEXTROSE 50% 50 ML SYRINGE IV PRN (13:00)
[2024-12-12] MEDS ORDERED: GLUCOSE 10 TAB/TUBE PO PRN (13:00)
[2024-12-12] MEDS ORDERED: GLUCOSE 40% GEL 15 GM TUBE PO PRN (13:00)
[2024-12-12] MEDS: KETOROLAC TROMETHAMINE 15 MG/ML VIAL IV SCH (14:35)
[2024-12-12] MEDS: INSULIN ASPART PER UNIT CHARGE SC SCH (14:48)
[2024-12-12] MEDS: traMADol HCL 50 MG TABLET PO PRN (15:56)
[2024-12-12] MEDS: Scopolamine CHECK PATCH PLACEMENT SCH (15:57)
[2024-12-12] MEDS: SENNA 8.6 MG TAB PO SCH (21:12)
[2024-12-12] MEDS: DOCUSATE SODIUM 100 MG CAP PO SCH (21:12)
[2024-12-12] MEDS: PREGABALIN 100 MG CAP PO SCH (21:12)
[2024-12-13] MEDS: LEVOTHYROXINE SODIUM 25 MCG TABLET PO SCH (05:32)
[2024-12-13 06:58] LABS: Mean Corpuscular Hemoglobin 30.1 pg (25.0-34.0); Mean Corpuscular Hgb Conc 33.3 g/dL (32.0-36.0); Mean Corpuscular Volume 90.2 fL (80.0-100.0); Platelet Count 167 K/uL (130-400); RDW Coefficient of Variation 14.1 % (11.5-14.5); RDW Standard Deviation 46.6 fL (36.4-46.3); Red Blood Count 3.66 M/uL (4.70-6.10); White Blood Count 9.48 K/ul (4.8-10.8)
[2024-12-13 07:29] LABS: BUN Creatinine Ratio 16.5 (10-20); Calcium 8.1 mg/dl (8.6-10.3); Creatinine Clr Calc Pharmacy 29.7 ml/min; Potassium 3.6 mmol/L (3.5-5.1)
[2024-12-13] MEDS ORDERED: GLIMEPIRIDE 2 MG TAB PO SCH (09:00)
[2024-12-13] MEDS ORDERED: ASPIRIN 81 MG ECTAB PO SCH (09:00)
[2024-12-13] MEDS ORDERED: NON-FORMULARY MEDICATION (Magnesium 100 mg Tablet) PO SCH (09:00)
[2024-12-13] MEDS ORDERED: metFORMIN HCL 500 MG TAB PO SCH (09:00)
[2024-12-13] MEDS: allopurinoL 100 MG TAB PO SCH (09:36)
[2024-12-13] MEDS: ASPIRIN 81 MG ECTAB PO SCH (09:37)
[2024-12-13] MEDS: hydroCHLOROthiazide 25 MG TAB PO SCH (09:37)
[2024-12-13] MEDS: dilTIAZem HCL 240 MG CAPCR PO SCH (09:37)
[2024-12-13] MEDS: OMEGA-3 (PURIFIED FISH OIL) 1 GM CAP PO SCH (09:37)
[2024-12-13] MEDS: ROSUVASTATIN CALCIUM 10 MG TAB PO SCH (09:38)
[2024-12-13] MEDS: PANTOprazole 40 MG TAB PO SCH (09:38)
[2024-12-13] MEDS: MULTIVITAMIN TAB PO SCH (09:38)
--- NOTE | 2024-12-13 10:21 | Orthopedic Progress Note ---
Date of Service December 13, 2024 Assessment & Plan (1) S/P total knee arthroplasty: Plan: Weightbearing as tolerated with walker assistance Immobilizer use for the first 48 hours postoperatively Ice with easy wrap Keep Silverlon dressing in place Pain controlled p.o. medication DVT prophylaxis with RUBEN stockings and aspirin Plan is to discharge home today with in-home physical therapy for the first 2 weeks Follow-up at [facility] orthopedics as previously scheduled With questions contact our clinic at [phone] Admission and Anticipated Discharge Date Admission Date: December 12, 2024 Subjective This 74-year-old male is day 1 status post right total knee arthroplasty with excision of accessory ossicle from right patella. Patient states he is doing very well today. He states he was able to walk 2 laps around the floor with physical therapy. He states that he still has not met with occupational therapy. He is hoping to be discharged home later this morning. He states that his knees who is a physical therapist is going to come to his house to do his PT for the first 2 weeks postoperatively. States that his pain is well-controlled with p.o. pain medication he was given. States he is not able to use oxycodone because it caused a severe rash the last time he had it. Currently he denies chest pain, shortness of breath, fever, chills, sweats, nausea, vomiting, diarrhea or difficulty voiding. He has no complaint of numbness or tingling in his right lower extremity. Review of Systems Review of Systems: All systems reviewed & are unremarkable except as noted in Subjective Physical Exam Physical Exam: Right knee: Outer dressing was removed from the patient's right lower extremity. Silverlon is clean dry and intact and left in place. Patient is a few degrees short of terminal extension. He is able to easily reach 90 degrees of flexion actively. He has no difficulty performing a straight leg raise test. He is able to actively dorsi and plantarflex foot. His calf is soft and supple and nontender to palpation. He was able to easily transition from a seated to a standing position with his walker. He is neurovascularly intact in the right lower extremity. Quad strength is 4+ out of 5. Results & Data Vital Signs (Past 12 Hours) Vital Signs Temp Pulse Resp BP Pulse Ox O2 Del Method 12/13/24 07:37 36.7 C 85 18 126/74 94 Room Air 12/13/24 03:19 36.6 C 72 16 128/74 93 Room Air 12/12/24 23:00 36.3 C L 71 16 137/76 95 Room Air Diagnostic Findings Laboratory Results WBC 9.48 K/ul (4.8-10.8) 12/13/24 05:48 RBC 3.66 M/uL (4.70-6.10) L 12/13/24 05:48 Hgb 11.0 g/dl (14.0-18.0) L 12/13/24 05:48 Hct 33.0 % (42.0-52.0) L 12/13/24 05:48 MCV 90.2 fL (80.0-100.0) 12/13/24 05:48 MCH 30.1 pg (25.0-34.0) 12/13/24 05:48 MCHC 33.3 g/dL (32.0-36.0) 12/13/24 05:48 RDW Std Deviation 46.6 fL (36.4-46.3) H 12/13/24 05:48 RDW Coeff of Jonathon 14.1 % (11.5-14.5) 12/13/24 05:48 Plt Count 167 K/uL (130-400) 12/13/24 05:48 MPV 10.0 fL (9.4-12.4) 12/13/24 05:48 Sodium 140 mmol/L (136-145) 12/13/24 05:48 Potassium 3.6 mmol/L (3.5-5.1) 12/13/24 05:48 Chloride 107 mmol/L (98-107) 12/13/24 05:48 Carbon Dioxide 27 mmol/L (21-32) 12/13/24 05:48 Anion Gap 6 (3-11) 12/13/24 05:48 BUN 38 mg/dl (6-23) H 12/13/24 05:48 Creatinine 2.31 mg/dl (0.6-1.4) H 12/13/24 05:48 Est Cr Clr Drug Dosing 29.7 ml/min 12/13/24 05:48 eGFR 29.10 12/13/24 05:48 BUN/Creatinine Ratio 16.5 (10-20) 12/13/24 05:48 Glucose 122 mg/dl (70-99(Fasting)) H 12/13/24 05:48 POC Glucose 124 mg/dl (70-99) H 12/13/24 07:41 Calcium 8.1 mg/dl (8.6-10.3) L 12/13/24 05:48 Blood Type A Positive 12/12/24 07:20 Antibody Screen NEGATIVE 12/12/24 07:20 Impressions Knee X-Ray 12/12/24 12:14 XR knee RT 1 or 2V routine CLINICAL HISTORY: Postoperative evaluation. COMPARISON: Right knee radiographs November 26, 2024. FINDINGS: Alignment of the total right knee arthroplasty is anatomic. There is no periprosthetic fracture or unexpected radiopaque foreign body. IMPRESSION: Expected findings following total right knee arthroplasty. ACT 112: Negative or not required by law. Electronically signed by: Michoacano Choudhary M.D. 12/12/2024 12:45 PM
--- NOTE | 2024-12-13 10:31 | Discharge Summary ---
Date of Service December 13, 2024 Admission HPI Per Admitting Provider History of Present Illness (including history relevant to procedure): This 74-year-old male presents to clinic today for his preoperative history and physical. Patient complains of a longstanding history of severe right knee pain. He states that he had surgery on the knee back in the early s. 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 States that his range of motion is very limited. Patient has failed conservative management w ith corticosteroid injections and hyaluronic acid injections. He is elected to proceed with surgical intervention. Review Of Systems: A 12 point review of systems is performed and is unremarkable except for those things stated in the HPI past medical history. Past Medical History: Problems: Right knee DJD Rash Tobacco user H/O: skin disorder Keratosis follicularis Hypertension Hypercholesterolemia Type 2 diabetes Renal calculi Procedure History Procedure Procedure Date Comments Injection back - 2017 Excision 12/24/2020 - pilar cyst occipital scalp Surgery 11/2017 Procedure - therapeutic Left knee surgery x 2 Right knee surgery x 1 Cardiac catheterization Bilateral carotid endarterectomy 2012 - right shoulder total replacement Allergies and Sensitivities: Soma Compound with Codeine(Hives) Current Home Meds: (Last Updated 11/26 13:03) allopurinol (allopurinol 100 mg oral tablet) 100 mg PO bid aspirin (aspirin 81 mg oral tablet) 81 mg PO Daily clobetasol topical (clobetasol 0.05% topical cream) 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 diltiazem (Dilt-XR) 240 mg PO Daily ferrous sulfate glimepiride (glimepiride 4 mg oral tablet) 4 mg PO Daily hydrochlorothiazide (hydrochlorothiazide 50 mg oral tablet) 50 mg PO Daily metFORMIN 500 mg PO Daily omega-3 polyunsaturated fatty acids (Fish Oil 1200 mg oral capsule) 1,200 mg PO Daily pantoprazole (pantoprazole 40 mg oral delayed release tablet) 40 mg PO Daily potassium chloride (Klor-Con M20 oral tablet, extended release) 20 mEq PO Daily rosuvastatin (Crestor 10 mg oral tablet) 10 mg PO qhs triamcinolone topical (triamcinolone 0.1% topical cream) APPLY TOPPICALLY TO TRUNK AREA TWICE A DAY as needed for dermatitis Initial Wt: 11/26 85.5 kg 188 lb Admission Exam Per Admitting Provider Physical Exam: (relevant to the procedure, including heart and lung evaluation) General: Alert and oriented x 3 with proper grooming and hygiene Eyes: Pupils are equal and reactive to light with accommodation. Extraocular movements are intact Throat: Posterior oropharynx clear with absence of edema, erythema or exudate. 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 He has staining of all of his teeth but no abscesses or open dental areas. Cardiac: Regular rate and rhythm with no murmurs or gallops appreciated Lungs: Clear to auscultation throughout with no wheezing, rales or rhonchi Abdomen: Mildly obese, nondistended, nontender NABS Extremities: Right knee; range of motion is from 8 degrees of extension to 115 degrees of flexion. He has visible varus malalignment along with some slight medial joint line tenderness. His patellas are mobile due to arthritic change. He is neurovascularly intact. Neuro: Cranial nerves II through XII are intact no motor or sensory deficit Skin: Normal in appearance no open skin areas or discharge Principal Diagnosis Right knee osteoarthritis Discharge Exam Right knee: Outer dressing was removed from the patient's right lower extremity. Silverlon is clean dry and intact and left in place. Patient is a few degrees short of terminal extension. He is able to easily reach 90 degrees of flexion actively. He has no difficulty performing a straight leg raise test. He is able to actively dorsi and plantarflex foot. His calf is soft and supple and nontender to palpation. He was able to easily transition from a seated to a standing position with his walker. He is neurovascularly intact in the right lower extremity. Quad strength is 4+ out of 5. Discharge Data Allergies Allergy/AdvReac Type Severity Reaction Status Date / Time carisoprodol Allergy Unknown HIVES Verified 12/12/24 07:26 codeine Allergy Unknown HIVES Verified 12/12/24 07:26 oxycodone AdvReac Unknown sees bugs, Verified 12/12/24 07:26 hallucinated Procedures Performed Operation Date: 12/12/24 09:10 Actual Procedures p Right Total Knee Arthroplasty, Excision of accessory ossicle from patella. (Right) - Jet Payton MD Ordered Studies 12/12/24 05:00 US - OR guided needle placemen Routine 12/12/24 09:23 US - OR guided needle placemen Stat Hospital Course (1) S/P total knee arthroplasty: Patient had an uneventful overnight stay following Right Total knee arthroplasty. He is doing very well today. He is anxious to be discharged home. He states that his niece, who is a physical therapist, is going to do his post op PT at his home. He is very please with the results of the surgery. Weightbearing as tolerated with walker assistance Immobilizer use for the first 48 hours postoperatively Ice with easy wrap Keep Silverlon dressing in place Pain controlled p.o. medication DVT prophylaxis with RUBEN stockings and aspirin Plan is to discharge home today with in-home physical therapy for the first 2 weeks Follow-up at [facility] orthopedics as previously scheduled With questions contact our clinic at [phone] Total Time Total Time Spent Total Time Spent (In Minutes): 25 mins Discharge Plan Discharge Items Patient Disposition: Home - Home Health Services Reason For Visit: Right Knee Ostearthritis Discharge Diagnosis: Right total knee arthroplasty; excision of bony ossicle from patella Activity: As commented below Lifting: None Bathing: Keep incision dry Bathing Comment: May shower later today Sexual Activity: Wait until after follow-up appointment Exercise/Sports: Wait until after follow-up appointment Driving/Machine Use: No driving until cleared by brand specialist Weightbearing: Right weightbearing Weightbearing Comment: As tolerated with walker assistance and immobilizer for first 48 hours post Non-emergency contact: Surgeon Call non-emergency contact if: you have any medication questions, your pain is not controlled, your temperature is above 101.5, your wound has increased drainage and your wound pain has increased Follow-up/Referrals: Renaldo Noonan, DO [Outside Practitioners] - Diet: Regular Addtl Attending Provider Instructions: Post-operative Instructions Dear Patient and Family/Friends, Before you are discharged from the hospital, it is important to know what to expect when you get home after surgery. To that end, we have created this sheet of discharge instructions which covers many commonly asked questions. Make sure you go through this sheet in its entirety with your nurse before you are discharged. Please note that we will go over the specifics of your surgery and recovery when you return for your first post-operative visit. Sincerely, Dr. Payton Medications 1. Tramadol 50 mg tablet: Take 1 to 2 tablets every 4-6 hours as needed for postoperative pain control. A prescription for this medicine will be sent to your pharmacy. 2. Diclofenac sodium 75 mg: Take 1 tablet twice daily for the first 30 days postoperatively for pain and inflammation relief. This will be sent to your pharmacy with 1 refill. 3. Aspirin 81 mg: Take 1 tablet twice daily for the first 30 days postoperatively for blood clot prevention. Please purchase the medication. 4. Extra strength Tylenol 500 mg: Take 2 tablets every 6-8 hours as needed for additional pain relief. Please purchase the medication. Pain Expect to be in a fair amount of pain after surgery. Remember, our goal is not to eliminate your pain, but to make it tolerable. It is a good idea to stay ahead of your pain by taking the medications you were prescribed once you get home. Typically, the pain starts improving 3-7 days after surgery. You should start weaning off the narcotic pain medication (oxycodone, hydrocodone, hydromorphone, morphine) as soon as your pain improves. Please call our office if your pain is not adequately controlled. Ice Ice your operative site at least 5 times a day for 15-30 minutes at a time. Make sure you have a thin cloth between the ice or cooling unit and your skin to prevent gatica bite. This is especially important if you received a nerve block. Continue icing your operative site for the first 5-7 days after surgery, then as needed. Diet/Nausea/Vomiting Start by drinking clear liquids and eating crackers. If you can tolerate this, then you may resume your normal diet. If you feel nauseated or vomit, take Zofran/ondansetron (if prescribed). Please call our office if you have intractable nausea or vomiting, or, if after hours, you may go to the Emergency Room for help. Constipation Constipation is a common side effect of narcotic pain medication. If you have not had a bowel movement within 2 days after surgery, we recommend purchasing an over the counter laxative such as Milk of Magnesia, Dulcolax, or Miralax from a local pharmacy, and taking it as instructed. Call our clinic if any questions. Slings and Braces If you were placed in a sling or brace, it must be worn at all times, including sleep. You may remove your sling or brace for physical therapy, home exercises, and showering. The length of time you will be in your brace and range of motion restrictions depends on what surgery you had; these details will be reviewed at your first post-operative appointment. Nerve block The anesthesia team sometimes places a nerve block to help with post-operative pain control. This results in significant numbness and inability to move the extremity. The nerve block usually wears off in 8-12 hours, but sometimes can last up to 24 hours. Please call our office if you are still unable to move your extremity after 24 hours, unless you received a pain pump to take home. Nerve blocks typically wear off quickly, so start taking pain medication as soon as you start feeling soreness near your surgical site. Weight bearing and Range of Motion. Do not bear any weight through your operative extremity immediately after surgery. If you had upper extremity surgery, do not lift anything with that arm. If you are in a knee brace, keep it locked in place until your follow-up. We will discuss your weight bearing, range of motion, and lifting restrictions in detail at your first post-operative appointment. Continuous Passive Motion (CPM) Machine If you were prescribed a CPM machine, it will start after your first post- operative appointment, at which time we will give you instructions on the range of motion settings and duration of treatment Physical therapy You will be given a prescription for physical therapy or occupational therapy at your first post-operative appointment. Typically, patients start therapy within 1 week of surgery Wound care and showering We will inspect your wound at your first post-operative visit, and may do a dressing change at that time. Most patients will be in a water-proof dressing that is removed 14 days after surgery. It is normal to see some dried blood on the dressing. Do not remove your dressing, paper strips or sutures yourself unless you are given permission. Showering is allowed the day after surgery. Do not scrub or remove any dressings. The wound should not be submerged underwater (i.e. in a bathtub or pool) until 4 weeks after surgery RUBEN stockings If you were given white stockings, these are to be worn at all times except to shower (on both legs) for the first 2 weeks after surgery. Driving You may not drive while taking narcotic pain medication or while in a cast, splint, sling or brace. You, the patient, need to make the final determination about when you are safe to drive, however, the earliest you may consider driving after surgery is below: Hand/Wrist/Elbow Surgery: 3 days Shoulder Surgery: 2 weeks Hip,/Knee/Ankle Surgery: 4 weeks Fracture repair: 6 weeks Return to Work Your return to work depends on what surgery was done and what type of work you do. Please bring any paperwork your employer needs completed to your first post-operative visit. Also, bring a description of your job duties, as this helps us to understand what risks you may face at work. Travel Avoid long distance travel (greater than 1 hour) in airplanes and cars for the first 6 weeks after surgery. If you must travel, you need to have a Doppler ultrasound done before you travel to rule out a blood clot in your legs. Follow-up You should have a follow-up appointment already scheduled 1-2 days after surgery. If not, please contact our office to make this appointment before you leave the hospital. When to call the office It is normal to have swelling and bruising in the limb that was operated on. This will improve with time. It is also normal to have fevers for the first 2 days after surgery. Reasons you should call your doctor include: Uncontrolled pain; Nausea, vomiting, or constipation that does not improve with medication; Fevers over 101.5, chills, sweats; Drainage or bleeding from the wound; Foul odor; Spreading areas of redness; Any other concerns. Contact Information Please call Dr. Payton's office at [phone] with any concerns. Pending Studies at Discharge: No Stand-Alone Forms: [facility] Medications and DC Order Prescriptions: New tramadol 50 mg Tablet 50 - 100 mg PO Q4H MDD Ongoing Tx; max 6/day PRN (Reason: Post op pain control) Qty: 28 0RF acetaminophen [Tylenol Extra Strength] 500 mg Tablet 1,000 mg PO Q8 30 Days Qty: 180 0RF diclofenac sodium 75 mg tablet,delayed release (DR/EC) 75 mg PO BID 30 Days Qty: 60 1RF Continued diltiazem HCl 240 mg Capsule,Extended Release 24hr 240 mg PO QAM allopurinol 100 mg Tablet 100 mg PO QAM levothyroxine 25 mcg Tablet 25 mcg PO QAM pantoprazole 40 mg Tablet,Delayed Release (Dr/Ec) 40 mg PO QAM metformin 1,000 mg Tablet 1,000 mg PO QAM glimepiride 4 mg Tablet 4 mg PO QAM Rx Instructions: administer with breakfast magnesium 100 mg Tablet 500 mg PO QAM hydrochlorothiazide 25 mg Tablet 12.5 mg PO QAM omega-3 fatty acids Capsule 1,000 mg PO QAM rosuvastatin 10 mg Tablet 10 mg PO QAM pregabalin 100 mg Capsule 100 mg PO BID Trulicity 0.75 mg/0.5 mL Pen Injector SUBCUT WK Rx Instructions: Takes on Changed aspirin 81 mg Tablet,Delayed Release (Dr/Ec) 81 mg PO BID Qty: 0 0RF Admission Data Admit Date/Time: 12/12/24 12:14 Attending Provider: Jet Payton Admit Provider: Jet Payton Primary Care Provider: Myke Blackwood
[2024-12-13] MEDS ORDERED: CeleBREX 200 MG CAP PO SCH (21:00)
== END 2024-12-13 11:45 | disposition home health service (06) ==
LOC: ASU 07:03 → 3E 07:03

== ENCOUNTER 2025-06-07 13:25 | Inpatient (IN) ==
[2025-06-07] MEDS: OPTIRAY 320 125ml IV ONE (13:36)
--- NOTE | 2025-06-07 13:44 | Emergency Department Note ---
Impression & Plan Stroke-like symptom, Acute confusion, Hypokalemia, Hypomagnesemia ED Provider Note NAME: MARTIN RANDOLPH II AGE: 74 SEX: M : 1950 ARRIVES VIA: Walk-In INFORMANT: Patient ED PROVIDER(S): Prasanna Rivas DO CHIEF COMPLAINT: Word finding, ambulatory dysfunction HPI: Patient is a 74-year-old male with a past medical history of hypertension, diabetes and hyperlipidemia who presents to the ER for confusion. Symptoms started somewhere after 930 10 AM this morning. Patient was last seen normal at this time. When he woke up from a nap they noticed that he had some word finding and some trouble walking consequently brought him in. Currently denies any headache or change in vision. No chest pain or shortness of breath. No nausea vomiting or diarrhea. No dysuria urgency or frequency. No other exacerbating or remitting factors. ADDITIONAL HISTORY OBTAINED: Per HPI Chronic Medical/Social Conditions Affecting Care: Per HPI PAST MEDICAL HISTORY:See Below PAST SURGICAL HISTORY:See Below FAMILY HISTORY:See Below SOCIAL HISTORY:See Below HOME MEDICATIONS:See Below ALLERGIES:See Below VITALS:See Below PHYSICAL EXAMINATION: GENERAL: Sitting up in bed, alert, well appearing, well nourished, no distress, non-toxic EYE EXAM: normal conjunctiva. PERRL and EOM's intact. OROPHARYNX: no exudate, no erythema, lips, buccal mucosa, and tongue normal and mucous membranes are moist NECK: supple, no nuchal rigidity, no adenopathy, non-tender LUNGS: Clear to auscultation. Normal chest wall mechanics HEART: no murmurs, S1 normal and S2 normal ABDOMEN: abdomen soft, non-tender, normo-active bowel sounds, no masses, no rebound or guarding. BACK: Back is symmetrical on inspection and there is no deformity, no midline tenderness, no CVA tenderness. SKIN: no rashes and no bruising UPPER EXTREMITIES: upper extremities are grossly normal. LOWER EXTREMITIES: No pitting edema. NEURO EXAM: Oriented to person place but not year, cranial nerves II-XII intact, normal speech, no weakness of arms, no weakness of legs. No drift. Finger to nose intact. Gross sensation intact. MEDICAL DECISION MAKING: Patient is a 74-year-old male who presents ER for confusion. Last known well was somewhere around 930 per family who provided additional history at bedside. They note that patient was seen around 930 and was normal. They woke him up from a nap and he was confused and did not know what was going on. He had some word finding. IV was established and blood work was obtained. Labs showed no significant leukocytosis. Mild anemia 11.5. INR unremarkable. BMP with hyponatremia at 131. Mild hypokalemia at 3.1. Creatinine consistent with previous at 2.1. LFTs bilirubin troponin was negative. UA with ketones. CT as well as angios of the head and neck were negative. Discussed with telestroke neurology and they recommended holding and conversation with family on TNK. They did recommend aspirin and loading with Plavix as well as 2 g of mag. Discussed case with hospitalist for further evaluation management treatment. Consults/Care Managements Discussions: Per [facility] Triage Nursing notes reviewed. Limited review of prior medical records performed Vital Signs: reviewed and remarkable for no significant abnormalities Differential diagnosis: Differential Diagnosis includes but is not limited to ischemic Stroke, hemorrhagic stroke, bells palsy, mass, neoplasm, migraine headache, seizure, subarachnoid hemorrhage, TIA, and transient global amnesia. ER treatment provided: See below Diagnostics interpreted by me include EKG and cardiac monitoring as listed below: -Cardiac Monitoring: An order was placed for continuous cardiac monitoring. The monitor shows a rate of 110 with sinus rhythm. -ECG: Sinus rhythm rate of 116 Normal axis No PVCs QTc 450 -Laboratory studies:Interpreted by me as stated above in MDM and shown below. Imaging studies: Xrays: As interpreted by me: Portable AP upright 1 view of the chest shows no focal infiltrate CTs show: CT angios of the head and neck were negative Procedures:none Critical Care: None Past Med/Surg History Problem List (Updated 06/07/25 @ 15:12 by Prasanna Rivas DO) Hypomagnesemia (Acute) Hypokalemia (Acute) Acute confusion (Acute) Stroke-like symptom (Acute) S/P total knee arthroplasty Osteoarthritis of right knee Lumbar stenosis with neurogenic claudication (Chronic) GERD (gastroesophageal reflux disease) (Chronic) HLD (hyperlipidemia) (Chronic) HTN (hypertension) (Chronic) Diabetes mellitus, type II (Chronic) Medical History CKD (chronic kidney disease) CAD (coronary artery disease) non-obstructive per cardiology records History of kidney stones Hypothyroid History of shingles History of gout GERD (gastroesophageal reflux disease) controlled, stable per pt Hyperlipemia HTN (hypertension) controlled, stable per pt Type 2 diabetes mellitus NIDDM Surgical History History of cardiac cath approx 2013, due to family hx. No findings. History of urologic surgery for kidney stone, hx stent. History of lithotripsy multiple History of right shoulder replacement History of right knee surgery History of left knee surgery x2 History of endoscopy pt suspects unable to verify. 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 Beliefs That Will Affect Care: None Current Living Situation: Spouse Feels Safe at Home: Yes Assistive Devices: None Allergies Allergies Allergy/AdvReac Type Severity Reaction Status Date / Time carisoprodol Allergy Unknown HIVES Verified 12/12/24 07:26 codeine Allergy Unknown HIVES Verified 12/12/24 07:26 oxycodone AdvReac Unknown sees bugs, Verified 12/12/24 07:26 hallucinated Home Meds Home Medications Medication Instructions Recorded Confirmed allopurinol 100 mg tablet 100 mg PO QAM 11/12/24 12/12/24 diltiazem HCl 240 mg 240 mg PO QAM 11/12/24 12/12/24 capsule,extended release 24 hr glimepiride 4 mg tablet 4 mg PO QAM 11/12/24 12/12/24 hydrochlorothiazide 25 mg tablet 12.5 mg PO QAM 11/12/24 12/12/24 levothyroxine 25 mcg tablet 25 mcg PO QAM 11/12/24 12/12/24 magnesium 100 mg tablet 500 mg PO QAM 11/12/24 12/12/24 metformin 1,000 mg tablet 1,000 mg PO QAM 11/12/24 12/12/24 omega-3 fatty acids 1,000 mg PO QAM 11/12/24 12/12/24 pantoprazole 40 mg tablet,delayed 40 mg PO QAM 11/12/24 12/12/24 release pregabalin 100 mg capsule 100 mg PO BID 11/12/24 12/12/24 rosuvastatin 10 mg tablet 10 mg PO QAM 11/12/24 12/12/24 dulaglutide 0.75 mg/0.5 mL mg subcut WK 12/12/24 [facility] Previous Rx's Medication Instructions Recorded aspirin 81 mg tablet,delayed 81 mg PO BID #0 tabs 12/13/24 release diclofenac sodium 75 mg 75 mg PO BID Post operative 12/13/24 tablet,delayed release inflammation relief 30 days #60 tabs tramadol 50 mg tablet 50 - 100 mg (1 - 2 x 50 mg) PO Q4H 12/13/24 PRN Post op pain control #28 tabs Results & Data (ED) Vital Signs Vital Signs - 24 hr 06/07/25 13:27 06/07/25 13:42 06/07/25 13:43 Temperature 36.7 C Temperature Source Oral Pulse Rate 113 H 117 H 116 H Pulse Rate from SpO2 Sensor 116 H Respiratory Rate 20 18 Blood Pressure 144/84 H 144/84 H Blood Pressure Mean 104 104 Pulse Oximetry 94 93 Sepsis Recent Fever Within 48 Hours No Sepsis New/Unexplained Change in Mental Status No Sepsis Action Taken by Nursing No Action Required 06/07/25 13:45 06/07/25 14:00 06/07/25 14:03 Temperature Temperature Source Pulse Rate 117 H 115 H 114 H Pulse Rate from SpO2 Sensor 117 H 115 H 114 H Respiratory Rate 23 15 20 Blood Pressure 142/77 H Blood Pressure Mean 98 Pulse Oximetry 92 94 93 Sepsis Recent Fever Within 48 Hours Sepsis New/Unexplained Change in Mental Status Sepsis Action Taken by Nursing 06/07/25 14:15 06/07/25 14:15 06/07/25 14:30 Temperature Temperature Source Pulse Rate 115 H 113 H Pulse Rate from SpO2 Sensor 115 H 113 H Respiratory Rate 24 20 Blood Pressure 105/74 105/74 138/81 Blood Pressure Mean 84 94 100 Pulse Oximetry 95 95 Sepsis Recent Fever Within 48 Hours Sepsis New/Unexplained Change in Mental Status Sepsis Action Taken by Nursing Laboratory Data 06/07/25 13:45 06/07/25 13:45 Lab Results 06/07/25 06/07/25 Range/Units 13:45 14:30 WBC 7.27 (4.8-10.8) K/ul RBC 3.82 L (4.70-6.10) M/uL Hgb 11.5 L (14.0-18.0) g/dl Hct 34.2 L (42.0-52.0) % MCV 89.5 (80.0-100.0) fL MCH 30.1 (25.0-34.0) pg MCHC 33.6 (32.0-36.0) g/dL RDW Std Deviation 46.3 (36.4-46.3) fL RDW Coeff of Jonathon 14.2 (11.5-14.5) % Plt Count 187 (130-400) K/uL MPV 9.5 (9.4-12.4) fL Immature Gran % (Auto) 0.3 % Neut % (Auto) 87.1 % Lymph % (Auto) 5.5 % [place] % (Auto) 6.6 % Eos % (Auto) 0.4 % Baso % (Auto) 0.1 % Neut # (Auto) 6.33 (1.40-6.50) K/uL Lymph # (Auto) 0.40 L (1.20-3.40) K/uL [place] # (Auto) 0.48 (0.11-0.59) K/uL Eos # (Auto) 0.03 (0.00-0.50) K/uL Baso # (Auto) 0.01 (0.00-0.20) K/uL Immature Gran # (Auto) 0.02 (0.01-0.20) K/uL PT 11.4 (9.0-12.0) Seconds INR 1.1 (0.9-1.1) APTT 31 (21-31) Seconds PTT Ratio 1.2 Sodium 131 L (136-145) mmol/L Potassium 3.1 L (3.5-5.1) mmol/L Chloride 97 L (98-107) mmol/L Carbon Dioxide 24 (21-32) mmol/L Anion Gap 10 (3-11) BUN 30 H (6-23) mg/dl Creatinine 2.14 H (0.6-1.4) mg/dl Est Cr Clr Drug Dosing 32.2 ml/min eGFR 31.89 BUN/Creatinine Ratio 14.0 (10-20) Glucose 174 H (70-99(Fasting)) mg/dl Calcium 8.5 L (8.6-10.3) mg/dl Magnesium 1.8 (1.7-2.4) mg/dl Total Bilirubin 0.6 (0.2-1.0) mg/dl AST 26 (13-39) U/L ALT 21 (7-52) U/L Alkaline Phosphatase 92 (34-104) U/L Troponin I High Sens 15.9 (0-20) pg/ml Total Protein 6.7 (6.0-8.3) gm/dl Albumin 3.7 (3.4-5.0) gm/dl Globulin 3.0 (2.5-4.0) gm/dl Albumin/Globulin Ratio 1.2 (0.9-2) Urine Color Yellow Urine Appearance Clear (Clear) Urine pH 6.0 (4.5-7.5) Ur Specific [place] 1.037 H (1.000-1.030) Urine Protein Trace H (Negative) Urine Glucose (UA) 3+ H (Negative) Urine Ketones 1+ H (Negative) Urine Blood Trace H (Negative) Urine Nitrite Negative (Negative) Urine Bilirubin Negative (Negative) Urine Urobilinogen Negative (Negative) Ur Leukocyte Esterase Negative (Negative) Urine WBC (Auto) 0-5 (0-5) /hpf Urine RBC (Auto) 0-2 (0-2) /hpf U Hyaline Cast (Auto) 0-2 (0-2) /lpf U Epithel Cells (Auto) 0-2 (0-2) /hpf Urine Bacteria (Auto) None Seen (None Seen) Urine Comment Administered Medications Discontinued Medications Aspirin (Aspirin Chew 324 Mg) 81 mg PO NOW STA Stop: 06/07/25 14:39 Last Admin: 06/07/25 14:57 Dose: 81 mg Documented By: BASSAM Clopidogrel Bisulfate (Clopidogrel Bisulfate 300 Mg Tab) 300 mg PO NOW STA Stop: 06/07/25 14:39 Last Admin: 06/07/25 14:57 Dose: 300 mg Documented By: BASSAM Ioversol (Optiray 320 125ml) 119 ml IV ONCE ONE Stop: 06/07/25 13:36 Last Admin: 06/07/25 13:36 Dose: 119 ml Documented By: EDK Imaging Data Radiologist's Impression: Chest X-Ray 06/07/25 13:28 Chest radiograph, one view History: Neurodeficit Comparison: None Findings: Single AP view of the chest performed. No focal consolidation or pleural effusion. No pneumothorax. The cardiomediastinal silhouette is within normal limits. Normal pulmonary vascularity. No evidence for lymphadenopathy. No visualized bony or soft tissue abnormality. Right shoulder arthroplasty. Severe left shoulder joint degenerative change. Impression: Normal chest radiograph Electronically signed by Aston Sheehan 06-07-2025 2:[address] 06/07/25 13:28 CT angio head w con, CT head/brain wo con, CT angio neck with con CLINICAL HISTORY: 74 years-old Male with neuro deficit, acute stroke suspected. Acute stroke like symptoms COMPARISON STUDY: None TECHNIQUE: Unenhanced axial CT scan of the brain is performed. Subsequently, following the IV administration of 119 cc of Optiray, CT angiogram of the head and neck was performed from the aortic arch to the skull apex. Images are reviewed in the axial, sagittal, and coronal planes. 3-D MIPS images are created and assessed. IV contrast was administered without complication. All measurements were obtained according to NASCET criteria. A dose lowering technique was utilized adhering to the principles of ALARA. CT DOSE: 1062.42 mGy.cm FINDINGS: CT BRAIN: There is no acute intracranial hemorrhage, midline shift, hydrocephalus, intracranial mass, territorial ischemia or abnormal extra-axial collections. No abnormal intra-axial or extra-axial enhancement. Involutional changes with white matter hypodensities likely representing chronic microvascular ischemic disease. Mastoid air cells and middle ear cavities are clear. No calvarial fracture. Paranasal sinuses are clear. CT ANGIOGRAM OF THE HEAD AND NECK: Three-vessel morphology of the thoracic aortic arch. Patency of the innominate and image subclavian arteries. The common and internal carotid arteries are patent with mild atherosclerosis of the carotid bulbs. The bilateral anterior and middle cerebral arteries are also patent. The dominant right vertebral artery. The left vertebral artery is developmentally consistent. origin of the posterior cerebral arteries. There is no aneurysm, high-grade stenosis, or proximal branch occlusion identified. Dural sinuses appear patent. No pneumothorax. Lung apices are clear. Unremarkable soft tissues. Degenerative changes of the spine. Moderate mucosal thickening of the maxillary sinuses. IMPRESSION: 1. No acute intracranial abnormality. 2. Unremarkable CTA of the head and neck. ACT 112: Negative or not required by law. The above report was generated using voice recognition software. It may contain grammatical, syntax or spelling errors. Electronically signed by: Peter Maurer M.D. 06/07/2025 1:59 PM Head CTA 06/07/25 13:28 CT angio head w con, CT head/brain wo con, CT angio neck with con CLINICAL HISTORY: 74 years-old Male with neuro deficit, acute stroke suspected. Acute stroke like symptoms COMPARISON STUDY: None TECHNIQUE: Unenhanced axial CT scan of the brain is performed. Subsequently, following the IV administration of 119 cc of Optiray, CT angiogram of the head and neck was performed from the aortic arch to the skull apex. Images are reviewed in the axial, sagittal, and coronal planes. 3-D MIPS images are created and assessed. IV contrast was administered without complication. All measurements were obtained according to NASCET criteria. A dose lowering technique was utilized adhering to the principles of ALARA. CT DOSE: 1062.42 mGy.cm FINDINGS: CT BRAIN: There is no acute intracranial hemorrhage, midline shift, hydrocephalus, intracranial mass, territorial ischemia or abnormal extra-axial collections. No abnormal intra-axial or extra-axial enhancement. Involutional changes with white matter hypodensities likely representing chronic microvascular ischemic disease. Mastoid air cells and middle ear cavities are clear. No calvarial fracture. Paranasal sinuses are clear. CT ANGIOGRAM OF THE HEAD AND NECK: Three-vessel morphology of the thoracic aortic arch. Patency of the innominate and image subclavian arteries. The common and internal carotid arteries are patent with mild atherosclerosis of the carotid bulbs. The bilateral anterior and middle cerebral arteries are also patent. The dominant right vertebral artery. The left vertebral artery is developmentally consistent. origin of the posterior cerebral arteries. There is no aneurysm, high-grade stenosis, or proximal branch occlusion identified. Dural sinuses appear patent. No pneumothorax. Lung apices are clear. Unremarkable soft tissues. Degenerative changes of the spine. Moderate mucosal thickening of the maxillary sinuses. IMPRESSION: 1. No acute intracranial abnormality. 2. Unremarkable CTA of the head and neck. ACT 112: Negative or not required by law. The above report was generated using voice recognition software. It may contain grammatical, syntax or spelling errors. Electronically signed by: Peter Maurer M.D. 06/07/2025 1:59 PM Neck CTA 06/07/25 13:28 CT angio head w con, CT head/brain wo con, CT angio neck with con CLINICAL HISTORY: 74 years-old Male with neuro deficit, acute stroke suspected. Acute stroke like symptoms COMPARISON STUDY: None TECHNIQUE: Unenhanced axial CT scan of the brain is performed. Subsequently, following the IV administration of 119 cc of Optiray, CT angiogram of the head and neck was performed from the aortic arch to the skull apex. Images are reviewed in the axial, sagittal, and coronal planes. 3-D MIPS images are created and assessed. IV contrast was administered without complication. All measurements were obtained according to NASCET criteria. A dose lowering technique was utilized adhering to the principles of ALARA. CT DOSE: 1062.42 mGy.cm FINDINGS: CT BRAIN: There is no acute intracranial hemorrhage, midline shift, hydrocephalus, intracranial mass, territorial ischemia or abnormal extra-axial collections. No abnormal intra-axial or extra-axial enhancement. Involutional changes with white matter hypodensities likely representing chronic microvascular ischemic disease. Mastoid air cells and middle ear cavities are clear. No calvarial fracture. Paranasal sinuses are clear. CT ANGIOGRAM OF THE HEAD AND NECK: Three-vessel morphology of the thoracic aortic arch. Patency of the innominate and image subclavian arteries. The common and internal carotid arteries are patent with mild atherosclerosis of the carotid bulbs. The bilateral anterior and middle cerebral arteries are also patent. The dominant right vertebral artery. The left vertebral artery is developmentally consistent. origin of the posterior cerebral arteries. There is no aneurysm, high-grade stenosis, or proximal branch occlusion identified. Dural sinuses appear patent. No pneumothorax. Lung apices are clear. Unremarkable soft tissues. Degenerative changes of the spine. Moderate mucosal thickening of the maxillary sinuses. IMPRESSION: 1. No acute intracranial abnormality. 2. Unremarkable CTA of the head and neck. ACT 112: Negative or not required by law. The above report was generated using voice recognition software. It may contain grammatical, syntax or spelling errors. Electronically signed by: Peter Maurer M.D. 06/07/2025 1:59 PM Discharge Plan Visit Data Chief Complaint: Stroke Alert Stated Complaint: STROKE ALERT ED Provider: Prasanna Rivas Discharge Problem: Stroke-like symptom, Acute confusion, Hypokalemia, Hypomagnesemia Condition: Serious Forms Stand Alone Forms: My [facility] Prescriptions Prescriptions: No Action diltiazem HCl 240 mg Capsule,Extended Release 24hr 240 mg PO QAM allopurinol 100 mg Tablet 100 mg PO QAM levothyroxine 25 mcg Tablet 25 mcg PO QAM pantoprazole 40 mg Tablet,Delayed Release (Dr/Ec) 40 mg PO QAM metformin 1,000 mg Tablet 1,000 mg PO QAM glimepiride 4 mg Tablet 4 mg PO QAM Rx Instructions: administer with breakfast magnesium 100 mg Tablet 500 mg PO QAM hydrochlorothiazide 25 mg Tablet 12.5 mg PO QAM omega-3 fatty acids Capsule 1,000 mg PO QAM rosuvastatin 10 mg Tablet 10 mg PO QAM pregabalin 100 mg Capsule 100 mg PO BID Trulicity 0.75 mg/0.5 mL Pen Injector SUBCUT WK Rx Instructions: Takes on tramadol 50 mg Tablet 50 - 100 mg PO Q4H MDD Ongoing Tx; max 6/day PRN (Reason: Post op pain control) Qty: 28 0RF diclofenac sodium 75 mg tablet,delayed release (DR/EC) 75 mg PO BID 30 Days Qty: 60 1RF aspirin 81 mg Tablet,Delayed Release (Dr/Ec) 81 mg PO BID Qty: 0 0RF Referrals Referrals: Myke Blackwood [Primary Care Provider] -
--- NOTE | 2025-06-07 14:01 | CT Scan Report ---
CT angio head w con, CT head/brain wo con, CT angio neck with con CLINICAL HISTORY: 74 years-old Male with neuro deficit, acute stroke suspected. Acute stroke like symptoms COMPARISON STUDY: None TECHNIQUE: Unenhanced axial CT scan of the brain is performed. Subsequently, following the IV adminis tration of 119 cc of Optiray, CT angiogram of the head and neck was performed from the aortic arch to the skull apex. Images are reviewed in the axial, sagittal, and coronal planes. 3-D MIPS images are created and assessed. IV contrast was administered without complication. All measurements were obtain ed according to NASCET criteria. A dose lowering technique was utilized adhering to the principles of ALARA. CT DOSE: 1062.42 mGy.cm FINDINGS: CT BRAIN: There is no acute intracranial hemorrhage, midline shift, hydrocephalus, intracranial mass, territori al ischemia or abnormal extra-axial collections. No abnormal intra-axial or extra-axial enhancement. Involutional changes with white matter hypodensities likely representing chronic microvascular ischem ic disease. Mastoid air cells and middle ear cavities are clear. No calvarial fracture. Paranasal sin uses are clear. CT ANGIOGRAM OF THE HEAD AND NECK: Three-vessel morphology of the thoracic aortic arch. Patency of the innominate and image subclavian a rteries. The common and internal carotid arteries are patent with mild atherosclerosis of the carotid bulbs. The bilateral anterior and middle cerebral arteries are also patent. The dominant right verte bral artery. The left vertebral artery is developmentally consistent. origin of the posterior c erebral arteries. There is no aneurysm, high-grade stenosis, or proximal branch occlusion identified. Dural sinuses appear patent. No pneumothorax. Lung apices are clear. Unremarkable soft tissues. Degenerative changes of the spine. Moderate mucosal thickening of the maxillary sinuses. IMPRESSION: 1. No acute intracranial abnormality. 2. Unremarkable CTA of the head and neck. ACT 112: Negative or not required by law. The above report was generated using voice recognition software. It may contain grammatical, syntax o r spelling errors. Electronically signed by: Peter Maurer M.D. 06/07/2025 1:59 PM
[2025-06-07 14:06] LABS: Hematocrit (blood only) 34.2 % (42.0-52.0); Hemoglobin 11.5 g/dl (14.0-18.0); Immature Granulocytes # (auto) 0.02 K/uL (0.01-0.20); Immature Granulocytes % (auto) 0.3 %; Mean Corpuscular Hemoglobin 30.1 pg (25.0-34.0); Mean Corpuscular Volume 89.5 fL (80.0-100.0); Platelet Count 187 K/uL (130-400); RDW Standard Deviation 46.3 fL (36.4-46.3); Red Blood Count 3.82 M/uL (4.70-6.10); White Blood Count 7.27 K/ul (4.8-10.8)
--- NOTE | 2025-06-07 14:13 | XRay Report ---
Chest radiograph, one view History: Neurodeficit Comparison: None Findings: Single AP view of the chest performed. No focal consolidation or pleural effusion. No pneumothorax. The cardiomediastinal silhouette is within normal limits. Normal pulmonary vascularity. No evidence for lymphadenopathy. No visualized bony or soft tissue abnormality. Right shoulder arthroplasty. Severe left shoulder joint degenerative change. Impression: Normal chest radiograph Electronically signed by Aston Sheehan 06-07-2025 2:12 PM
[2025-06-07 14:15] LABS: INR 1.1 (0.9-1.1); Partial Thromboplastin Time 31 Seconds (21-31); Prothrombin Time 11.4 Seconds (9.0-12.0)
[2025-06-07 14:25] LABS: Alanine Aminotransferase 21.0 U/L (7-52); Albumin Globulin Ratio 1.2 (0.9-2); Alkaline Phosphatase 92.0 U/L (34-104); Anion Gap 10.0 (3-11); Bilirubin,Total 0.6 mg/dl (0.2-1.0); Blood Urea Nitrogen 30.0 mg/dl (6-23); Calcium 8.5 mg/dl (8.6-10.3); Carbon Dioxide 24.0 mmol/L (21-32); Chloride 97.0 mmol/L (98-107); Creatinine Clr Calc Pharmacy 32.2 ml/min; Globulin 3.0 gm/dl (2.5-4.0); Glucose 174.0 mg/dl (70-99(Fasting)); Magnesium 1.8 mg/dl (1.7-2.4); Potassium 3.1 mmol/L (3.5-5.1); Sodium 131.0 mmol/L (136-145); Total Protein 6.7 gm/dl (6.0-8.3)
[2025-06-07 14:42] LABS: Appearance Urine Clear (Clear); Bacteria Urine Automated None Seen (None Seen); Cast Urine Automated 0-2 /lpf (0-2); Epithelial Cell Urine Auto 0-2 /hpf (0-2); Glucose Urine UA 3+ (Negative); RBC Urine Automated 0-2 /hpf (0-2); WBC Urine Automated 0-5 /hpf (0-5)
--- NOTE | 2025-06-07 14:48 | History & Physical Report ---
Date of Service June 07, 2025 Assessment & Plan (1) Stroke-like symptom: (2) Acute confusion: (3) Hypokalemia: (4) Hypomagnesemia: Plan Mr Murcia is a 74 year old gentleman with past medical history remarkable for HTN, CAD, tobacco use, hypothyroidism, CKD IIIb, carotid stenosis, osteoarthritis s/p TKA 11/2024, chronic anemia, HLD, postherpetic polyneuropathy, DMTII admitted to PCU for further evaluation and management of stroke like symptoms #Stroke like symptoms, suspect TIA #Mild ICA stenosis CTA head and neck unremarkable MRI negative episode of confusion and word slurring resolved ECHO pending PT/OT/Speech in am passed bedside swallow continue ASA and Plavix increase statin to 40mg daily lipid panel and A1C in am b12, folate, tsh in am admit pcu, neuro check q 4 #Sinus tachycardia #RLE edema #ISBELL recent trauma to RLE with fracture to knee cap, right swelling could be traumatic however risk for DVT DDIMER at 4120 not on any medications that would necessarily cause reflex tachycardia does not appear hypovolemic, steady rates in 110s Patient with moderate risk for PE given tachycardia, recent knee immobilization/trauma, RLE edema; cannot obtain CT PE at this time 2/2 recent contrast load and CKD III diagnosis Will start Heparin IV as risk is present for PE Dopplers BLE ordered V/Q scan ordered likely to be completed Monday give sudden onset of ISBELL today #Hyponatremia #Hypokalemia on HCTZ, will discontinue Trend BMP replace lytes prn consider additional eval if plateaued or dropping #HTN #CAD, mild nonobstructive per [employer] 2023 ([facility] 2013) troponin negative, no chest pain ISBELL sudden onset today as above ECHO ordered continue Diltazem hold HCTZ as above #Chronic normocytic anemia baseline appears to be 11-12 trend cbc #CKD III BUn at baseline of 30s, Cr. at 2.14 , baseline 2.0-2.3 s/p contrast load with CTA Will hold on CTA PE as hemodynamically stable, plan for VQ scan instead for above concerns #Hypothyroid tsh in am continue Synthroid DVT ppx Heparin drip for concern of PE iso sinus tachycardia, acute ISBELL, ddimer 4120 PCP Myke Blackwood admit pcu Admission and Anticipated Discharge Date Admission Date: Time spent evaluating patient, direct bedside care, chart review, placing orders, interpretation of diagnostic studies, discussion with consultants, patient, and family members, as well as other required patient management activities is 75 minutes. History of Present Illness Primary Care Provider: Myke Murcia is a 74 year old gentleman with past medical history remarkable for HTN, CAD, tobacco use, hypothyroidism, CKD IIIb, carotid stenosis, osteoarthritis s/p TKA 11/2024, chronic anemia, HLD, postherpetic polyneuropathy, DMTII presented to [facility] ED due to stroke like symptoms. Patient was doing well yesterday. He woke this morning to clean his trike for a group ride. He typically doesn't experience SOB or issues with cleaning his trike, however, today we was taking more breaks and felt tired. He notes that he just didn't "feel like [himself]." The daughter was at bedside and states that the caregiver who aids the patient's noted that the patient was more pale in color and appeared to be "zoned out." The daughter immediately brought patient to the ED. She reports in the care ride the patient was struggling to finds his words and sounded slurred. He was struggling to recall dates and events in recent history. There was no report of limb weakness or facial droop. Patient states he just doesn't feel right. He states he feels it was challenging to find words. He does feel confused, but denies headache, vision changes, difficulty moving limbs, chest pain. He does not he feels like his heart is beating faster than normal. He has never been told he has a fast heart rate or abnormal rhythm before. He does report recent trauma to his right knee. He underwent a knee replacement in 11/2024, but then noted that he fractured the tip of his knee cap with a subsequent hematoma at the end of last month. He was supposed to wear a knee immobilizer, and he did for a short while, but ultimately stopped. He reports that the right knee and calf is a little more swollen than his left after that episode. Patient does not ambulate with a device. 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 Denies etoh or illicits, uses chewing tobacco. Able to state name, location, situation, but was unable to recount year, month, however, knew that it was Monday. In the ED, vitals were notable for BP of 130-140s HR of 110s, and O2 sat of mid 90s on room air Imaging revealed CTA head and neck without signs of bleed or acute abnormality, noting mild atherosclerosis EKG with sinsus tachycardia in 116 QTC 450 ED interventions: asa, plavix, mag Consultants: neurology--telestroke deferred thrombolytics, recommended ASA/Plavix Patient to be admitted to PCU for further evaluation and management of stroke like symptoms Allergies Allergy/AdvReac Type Severity Reaction Status Date / Time carisoprodol Allergy Unknown HIVES Verified 12/12/24 07:26 codeine Allergy Unknown HIVES Verified 12/12/24 07:26 oxycodone AdvReac Unknown sees bugs, Verified 12/12/24 07:26 hallucinated Home Medications Medication Instructions Recorded Confirmed Type allopurinol 100 mg tablet 100 mg PO QAM 11/12/24 06/07/25 History diltiazem HCl 240 mg 240 mg PO QA 11/12/24 06/07/25 History capsule,extended release 24 hr glimepiride 4 mg tablet 4 mg PO QAM 11/12/24 06/07/25 History hydrochlorothiazide 25 mg tablet 25 mg PO QAM 11/12/24 06/07/25 History levothyroxine 25 mcg tablet 25 mcg PO DAILYBB 11/12/24 06/07/25 History metformin 1,000 mg tablet 1,000 mg PO QAM 11/12/24 06/07/25 History pantoprazole 40 mg tablet,delayed 40 mg PO QAM 11/12/24 06/07/25 History release rosuvastatin 10 mg tablet 10 mg PO QAM 11/12/24 06/07/25 History dulaglutide 0.75 mg/0.5 mL 0.75 mg subcut WK 12/12/24 06/07/25 History subcutaneous pen injector (Trulicity) aspirin 81 mg tablet,delayed 81 mg PO DAILY 06/07/25 06/07/25 History release cyclobenzaprine 10 mg tablet 10 mg PO BID PRN Muscle Spasm 06/07/25 06/07/25 History magnesium 250 mg tablet 500 mg PO QAM 06/07/25 06/07/25 History omega 9-lnf-aqg-fish oil 1,000 mg 1 cap PO QAM 06/07/25 06/07/25 History (120 mg-180 mg) capsule (Fish Oil) potassium chloride 10 mEq 10 meq PO QAM 06/07/25 06/07/25 History tablet,extended release tramadol 50 mg tablet 50 - 100 mg PO Q6 PRN Pain 06/07/25 06/07/25 History Past Med/Surg History Problem List (Updated 06/07/25 @ 15:12 by Prasanna Rivas DO) Hypomagnesemia (Acute) Hypokalemia (Acute) Acute confusion (Acute) Stroke-like symptom (Acute) S/P total knee arthroplasty Osteoarthritis of right knee Lumbar stenosis with neurogenic claudication (Chronic) GERD (gastroesophageal reflux disease) (Chronic) HLD (hyperlipidemia) (Chronic) HTN (hypertension) (Chronic) Diabetes mellitus, type II (Chronic) Medical History CKD (chronic kidney disease) CAD (coronary artery disease) non-obstructive per cardiology records History of kidney stones Hypothyroid History of shingles History of gout GERD (gastroesophageal reflux disease) controlled, stable per pt Hyperlipemia HTN (hypertension) controlled, stable per pt Type 2 diabetes mellitus NIDDM Surgical History History of cardiac cath approx 2013, due to family hx. No findings. History of urologic surgery for kidney stone, hx stent. History of lithotripsy multiple History of right shoulder replacement History of right knee surgery History of left knee surgery x2 History of endoscopy pt suspects unable to verify. History of colonoscopy History of lumbar spinal fusion Family History Sister Family history of myocardial infarction Brother Family history of myocardial infarction in first degree male relative before 55 years of age age 37 Social History Smoking Status: Never smoker Tobacco Type: Smokeless Tobacco (Dip or Chew) Cigarettes Per Day: chew daily/advised npo.; Second Hand Exposure: No; Do You Dip or Chew Tobacco: Yes; Tobacco Cessation Education Requested by Patient: No Hx Alcohol Use: No Hx Substance Use: No Preferred Language: Andorran Communication Ability: Effective Reset Merchandiser Required: No Beliefs That Will Affect Care: None Current Living Situation: Spouse Other Information That Helps Us Care for You: No Feels Safe at Home: Yes Safety Concerns: Feels Safe At This Time Assistive Devices: None Review of Systems Review of Systems: Constitutional: (-) fever/chills, (-) recent loss of weight, (-) appetite changes, (-) night sweats. Head: (-) headache, (-) dizziness. Eye: (-) blurring of vision, (-) double vision, (-) redness. Ear: (-) hearing loss, (-) discharge, (-) vertigo Nose: (-) discharge, (-) bleeding, (-) congestion, (-) post nasal drip. Throat: (-) sore throat, (-) hoarseness of voice, (-) odynophagia. Cardiovascular: (-) chest pain, (-) palpitations, (-) syncope, (-) orthopnea, (- ) PND, (+) leg swelling, R Respiratory: (+) shortness of breath, (-) cough, (-) wheezing, (-) hemoptysis. Neuro: (-) weakness in extremities, (-) numbness, (-) tingling, (-) tremor. Gastrointestinal: (-) belly pain, (-) belly distension, (-) nausea, (-) vomiting, (-) diarrhea, (-) constipation Genitourinary: (-) hematuria, (-) dysuria, (-) polyuria, (-) hesitancy, (-) frequency, (-) urinary incontinence. Musculoskeletal: (-) myalgia, (-) arthralgia. Skin: (-) rashes. Endocrine: (-) heat/cold intolerance. Psychiatry: (-) depression, (-) hallucination. Physical Exam Physical Exam: GENERAL APPEARANCE: AxOx4, generally well-appearing male, no acute distress. HEENT: NC, AT. MMM. EOMI, clear conjunctiva, oropharynx clear. NECK: Supple without lymphadenopathy. No stiffness or restricted ROM. HEART: Normal rate and regular rhythm, normal S1/S1, no m/r/g LUNGS: CTAB, moving air well. No crackles or wheezes are heard. ABDOMEN: Soft, nontender, nondistended with good bowel sounds heard. BACK: No CVAT, no obvious deformity. EXTREMITIES: Without cyanosis, clubbing or edema. NEUROLOGICAL: Grossly nonfocal. Alert and oriented, moving all 4 extremities. CN II-XII intact. Speech clear on exam Skin: Warm and dry without any rash. Results & Data Results & Data Vital Signs (Past 12 Hours) Vital Signs Temp Pulse Resp BP Pulse Ox 06/07/25 14:30 113 H 20 138/81 95 06/07/25 14:15 105/74 06/07/25 14:15 115 H 24 105/74 95 06/07/25 14:03 114 H 20 142/77 H 93 06/07/25 14:00 115 H 15 94 06/07/25 13:45 117 H 23 92 06/07/25 13:43 116 H 06/07/25 13:42 117 H 18 144/84 H 93 06/07/25 13:27 36.7 C 113 H 20 144/84 H 94 Laboratory Results Short CBC 06/07/25 Range/Units 13:45 WBC 7.27 (4.8-10.8) K/ul Hgb 11.5 L (14.0-18.0) g/dl Hct 34.2 L (42.0-52.0) % Plt Count 187 (130-400) K/uL BMP 06/07/25 13:45 Sodium 131 L Potassium 3.1 L Chloride 97 L Carbon Dioxide 24 BUN 30 H Creatinine 2.14 H Glucose 174 H Calcium 8.5 L Cardiac Enzymes 06/07/25 Range/Units 13:45 Total Creatine Kinase 193 (30-223) U/L Liver Function 06/07/25 Range/Units 13:45 Total Bilirubin 0.6 (0.2-1.0) mg/dl AST 26 (13-39) U/L ALT 21 (7-52) U/L Alkaline Phosphatase 92 (34-104) U/L Albumin 3.7 (3.4-5.0) gm/dl Urine 06/07/25 Range/Units 14:30 Urine Color Yellow Urine Appearance Clear (Clear) Urine pH 6.0 (4.5-7.5) Ur Specific [place] 1.037 H (1.000-1.030) Urine Protein Trace H (Negative) Urine Glucose (UA) 3+ H (Negative) Diagnostic Findings Chest X-Ray 06/07/25 13:28 Chest radiograph, one view History: Neurodeficit Comparison: None Findings: Single AP view of the chest performed. No focal consolidation or pleural effusion. No pneumothorax. The cardiomediastinal silhouette is within normal limits. Normal pulmonary vascularity. No evidence for lymphadenopathy. No visualized bony or soft tissue abnormality. Right shoulder arthroplasty. Severe left shoulder joint degenerative change. Impression: Normal chest radiograph Electronically signed by Aston Sheehan 06-07-2025 2:[address] 06/07/25 13:28 CT angio head w con, CT head/brain wo con, CT angio neck with con CLINICAL HISTORY: 74 years-old Male with neuro deficit, acute stroke suspected. Acute stroke like symptoms COMPARISON STUDY: None TECHNIQUE: Unenhanced axial CT scan of the brain is performed. Subsequently, following the IV administration of 119 cc of Optiray, CT angiogram of the head and neck was performed from the aortic arch to the skull apex. Images are reviewed in the axial, sagittal, and coronal planes. 3-D MIPS images are created and assessed. IV contrast was administered without complication. All measurements were obtained according to NASCET criteria. A dose lowering technique was utilized adhering to the principles of ALARA. CT DOSE: 1062.42 mGy.cm FINDINGS: CT BRAIN: There is no acute intracranial hemorrhage, midline shift, hydrocephalus, intracranial mass, territorial ischemia or abnormal extra-axial collections. No abnormal intra-axial or extra-axial enhancement. Involutional changes with white matter hypodensities likely representing chronic microvascular ischemic disease. Mastoid air cells and middle ear cavities are clear. No calvarial fracture. Paranasal sinuses are clear. CT ANGIOGRAM OF THE HEAD AND NECK: Three-vessel morphology of the thoracic aortic arch. Patency of the innominate and image subclavian arteries. The common and internal carotid arteries are patent with mild atherosclerosis of the carotid bulbs. The bilateral anterior and middle cerebral arteries are also patent. The dominant right vertebral artery. The left vertebral artery is developmentally consistent. origin of the posterior cerebral arteries. There is no aneurysm, high-grade stenosis, or proximal branch occlusion identified. Dural sinuses appear patent. No pneumothorax. Lung apices are clear. Unremarkable soft tissues. Degenerative changes of the spine. Moderate mucosal thickening of the maxillary sinuses. IMPRESSION: 1. No acute intracranial abnormality. 2. Unremarkable CTA of the head and neck. ACT 112: Negative or not required by law. The above report was generated using voice recognition software. It may contain grammatical, syntax or spelling errors. Electronically signed by: Peter Maurer M.D. 06/07/2025 1:59 PM Head CTA 06/07/25 13:28 CT angio head w con, CT head/brain wo con, CT angio neck with con CLINICAL HISTORY: 74 years-old Male with neuro deficit, acute stroke suspected. Acute stroke like symptoms COMPARISON STUDY: None TECHNIQUE: Unenhanced axial CT scan of the brain is performed. Subsequently, following the IV administration of 119 cc of Optiray, CT angiogram of the head and neck was performed from the aortic arch to the skull apex. Images are reviewed in the axial, sagittal, and coronal planes. 3-D MIPS images are created and assessed. IV contrast was administered without complication. All measurements were obtained according to NASCET criteria. A dose lowering technique was utilized adhering to the principles of ALARA. CT DOSE: 1062.42 mGy.cm FINDINGS: CT BRAIN: There is no acute intracranial hemorrhage, midline shift, hydrocephalus, intracr anial mass, territorial ischemia or abnormal extra-axial collections. No abnormal intra-axial or extra-axial enhancement. Involutional changes with white matter hypodensities likely representing chronic microvascular ischemic disease. Mastoid air cells and middle ear cavities are clear. No calvarial fracture. Paranasal sinuses are clear. CT ANGIOGRAM OF THE HEAD AND NECK: Three-vessel morphology of the thoracic aortic arch. Patency of the innominate and image subclavian arteries. The common and internal carotid arteries are patent with mild atherosclerosis of the carotid bulbs. The bilateral anterior and middle cerebral arteries are also patent. The dominant right vertebral artery. The left vertebral artery is developmentally consistent. origin of the posterior cerebral arteries. There is no aneurysm, high-grade stenosis, or proximal branch occlusion identified. Dural sinuses appear patent. No pneumothorax. Lung apices are clear. Unremarkable soft tissues. Degenerative changes of the spine. Moderate mucosal thickening of the maxillary sinuses. IMPRESSION: 1. No acute intracranial abnormality. 2. Unremarkable CTA of the head and neck. ACT 112: Negative or not required by law. The above report was generated using voice recognition software. It may contain grammatical, syntax or spelling errors. Electronically signed by: Peter Maurer M.D. 06/07/2025 1:59 PM Neck CTA 06/07/25 13:28 CT angio head w con, CT head/brain wo con, CT angio neck with con CLINICAL HISTORY: 74 years-old Male with neuro deficit, acute stroke suspected. Acute stroke like symptoms COMPARISON STUDY: None TECHNIQUE: Unenhanced axial CT scan of the brain is performed. Subsequently, following the IV administration of 119 cc of Optiray, CT angiogram of the head and neck was performed from the aortic arch to the skull apex. Images are reviewed in the axial, sagittal, and coronal planes. 3-D MIPS images are created and assessed. IV contrast was administered without complication. All measurements were obtained according to NASCET criteria. A dose lowering technique was utilized adhering to the principles of ALARA. CT DOSE: 1062.42 mGy.cm FINDINGS: CT BRAIN: There is no acute intracranial hemorrhage, midline shift, hydrocephalus, intracranial mass, territorial ischemia or abnormal extra-axial collections. No abnormal intra-axial or extra-axial enhancement. Involutional changes with white matter hypodensities likely representing chronic microvascular ischemic disease. Mastoid air cells and middle ear cavities are clear. No calvarial fracture. Paranasal sinuses are clear. CT ANGIOGRAM OF THE HEAD AND NECK: Three-vessel morphology of the thoracic aortic arch. Patency of the innominate and image subclavian arteries. The common and internal carotid arteries are patent with mild atherosclerosis of the carotid bulbs. The bilateral anterior and middle cerebral arteries are also patent. The dominant right vertebral artery. The left vertebral artery is developmentally consistent. origin of the posterior cerebral arteries. There is no aneurysm, high-grade stenosis, or proximal branch occlusion identified. Dural sinuses appear patent. No pneumothorax. Lung apices are clear. Unremarkable soft tissues. Degenerative changes of the spine. Moderate mucosal thickening of the maxillary sinuses. IMPRESSION: 1. No acute intracranial abnormality. 2. Unremarkable CTA of the head and neck. ACT 112: Negative or not required by law. The above report was generated using voice recognition software. It may contain grammatical, syntax or spelling errors. Electronically signed by: Peter Maurer M.D. 06/07/2025 1:59 PM Brain MRI 06/07/25 14:48 MRI BRAIN WITHOUT CONTRAST TECHNIQUE: An MRI examination of the brain was performed utilizing sagittal and axial T1-weighted images as well as axial T2-weighted, FLAIR, gradient echo and diffusion-weighted images. INDICATION: Headaches COMPARISON: CT examinations from earlier in the same day are not viewable in our system. FINDINGS: The ventricular, sulcal and cisternal spaces are normal in caliber. There is no evidence of intracranial mass lesion, hydrocephalus, infarct, extra-axial fluid collection, restricted diffusion or parenchymal hemorrhage. Age-related involutional changes of the brain and moderate chronic white matter ischemic changes. The cerebellar tonsils are normal in position. The pituitary gland is not enlarged. The major arterial vascular structures of the skull base are patent. No intraorbital soft tissue mass lesion is observed. The visualized paranasal sinuses are aerated. Mastoids are aerated. IMPRESSION: No acute intracranial process identified. Chronic findings as above Electronically signed by Luke Curtis 06-07-2025 4:47 PM Medications Administered Home Medications Medication Instructions Recorded Confirmed Last Taken allopurinol 100 mg tablet 100 mg PO [facility] 11/12/24 06/07/25 12/11/24 09:00 diltiazem HCl 240 mg 240 mg PO [facility] 11/12/24 06/07/25 12/11/24 09:00 capsule,extended release 24 hr glimepiride 4 mg tablet 4 mg PO [facility] 11/12/24 06/07/25 12/11/24 09:00 hydrochlorothiazide 25 mg tablet 25 mg PO [facility] 11/12/24 06/07/25 12/11/24 09:00 levothyroxine 25 mcg tablet 25 mcg PO DAILYBB 11/12/24 06/07/25 12/11/24 09:00 metformin 1,000 mg tablet 1,000 mg PO [facility] 11/12/24 06/07/25 12/11/24 09:00 pantoprazole 40 mg tablet,delayed 40 mg PO QA 11/12/24 06/07/25 12/11/24 09:00 release rosuvastatin 10 mg tablet 10 mg PO [facility] 11/12/24 06/07/25 12/11/24 09:00 dulaglutide 0.75 mg/0.5 mL 0.75 mg subcut WK 12/12/24 06/07/25 12/05/24 20:00 [facility] aspirin 81 mg tablet,delayed 81 mg PO DAILY 06/07/25 06/07/25 Unknown release cyclobenzaprine 10 mg tablet 10 mg PO BID PRN Muscle Spasm 06/07/25 06/07/25 Unknown magnesium 250 mg tablet 500 mg PO QAM 06/07/25 06/07/25 Unknown omega 8-dgv-iyi-fish oil 1,000 mg 1 cap PO QAM 06/07/25 06/07/25 Unknown (120 mg-180 mg) capsule (Fish Oil) potassium chloride 10 mEq 10 meq PO QAM 06/07/25 06/07/25 Unknown tablet,extended release tramadol 50 mg tablet 50 - 100 mg PO Q6 PRN Pain 06/07/25 06/07/25 Unknown
[2025-06-07] MEDS: CLOPIDOGREL BISULFATE 300 MG TAB PO STA (14:57)
[2025-06-07] MEDS: ASPIRIN CHEW 324 MG PO STA (14:57)
[2025-06-07] MEDS: SODIUM CHLORIDE 0.9% 1,000 ML IV ONE (15:33)
[2025-06-07] MEDS: MAGNESIUM SULFATE / D5W 1 GM/100 ML BAG IV SCH (15:33)
[2025-06-07] MEDS: POTASSIUM CHLORIDE CRTAB 20 MEQ TABCR PO STA ×2 (15:33→21:20)
[2025-06-07 15:44] LABS: Creatine Kinase 193.0 U/L (30-223)
[2025-06-07] MEDS ORDERED: MELATONIN 3 MG TAB PO PRN (16:37)
[2025-06-07] MEDS ORDERED: PHARMACIST DISCHARGE MED REC CONSULT PRN (16:37)
[2025-06-07] MEDS ORDERED: CYCLOBENZAPRINE HCL 10 MG TAB PO PRN (16:37)
[2025-06-07] MEDS ORDERED: POLYETHYLENE (MIRALAX) 17 GM PACK PO PRN (16:37)
[2025-06-07] MEDS ORDERED: ACETAMINOPHEN 325 MG TAB PO PRN (16:37)
[2025-06-07] MEDS ORDERED: ONDANSETRON INJ 2 MG/ML 2 ML VIAL IV PRN (16:37)
--- NOTE | 2025-06-07 16:47 | Magnetic Resonance Report ---
MRI BRAIN WITHOUT CONTRAST TECHNIQUE: An MRI examination of the brain was performed utilizing sagittal and axial T1-weighted images as well as axial T2-weighted, FLAIR, gradient echo and diffusion-weighted images. INDICATION: Headaches COMPARISON: CT examinations from earlier in the same day are not viewable in our system. FINDINGS: The ventricular, sulcal and cisternal spaces are normal in caliber. There is no evidence of intracranial mass lesion, hydrocephalus, infarct, extra-axial fluid collection, restricted diffusion or parenchymal hemorrhage. Age-related involutional changes of the brain and moderate chronic white matter ischemic changes. The cerebellar tonsils are normal in position. The pituitary gland is not enlarged. The major arterial vascular structures of the skull base are patent. No intraorbital soft tissue mass lesion is observed. The visualized paranasal sinuses are aerated. Mastoids are aerated. IMPRESSION: No acute intracranial process identified. Chronic findings as above Electronically signed by Luke Curtis 06-07-2025 4:47 PM
[2025-06-07] MEDS ORDERED: DEXTROSE 50% 50 ML SYRINGE IV PRN (17:54)
[2025-06-07] MEDS ORDERED: GLUCAGON FOR INJ 1 MG VIAL SQ PRN (17:54)
[2025-06-07] MEDS ORDERED: GLUCOSE 40% GEL 15 GM TUBE PO PRN (17:54)
[2025-06-07] MEDS ORDERED: CARBOHYDRATES FOR HYPOGLYCEMIA PO PRN (17:54)
[2025-06-07] MEDS ORDERED: GLUCOSE 10 TAB/TUBE PO PRN (17:54)
[2025-06-07] MEDS ORDERED: Heparin IV Adult Wt-Based Standard *NO* INITIAL Bolus Protocol IV STA (18:15)
--- NOTE | 2025-06-07 18:57 | Ultrasound Report ---
Examination: Doppler venous ultrasound of the lower extremity Comparison: None Technique: Grayscale evaluation with compression, spectral flow, and color Doppler assessment of the deep venous system of the leg, from the groin to the knee, as well as the lower leg Findings: The external iliac, common femoral, femoral, popliteal, and posterior tibial veins demonstrate normal compressibility and blood flow. Impression: No evidence for DVT of the bilateral lower extremity Electronically signed by Aston Sheehan 06-07-2025 6:57 PM
[2025-06-07] MEDS: HEPARIN 25000 UNIT/500 ML D5W 25,000 UNITS/500 ML BAG IV SCH (19:30)
[2025-06-07 19:59] LABS: Anion Gap 10.0 (3-11); Blood Urea Nitrogen 28.0 mg/dl (6-23); Calcium 8.7 mg/dl (8.6-10.3); Carbon Dioxide 24.0 mmol/L (21-32); Chloride 100.0 mmol/L (98-107); Creatinine Clr Calc Pharmacy 35.1 ml/min; Glucose 171.0 mg/dl (70-99(Fasting)); Potassium 3.2 mmol/L (3.5-5.1); Sodium 134.0 mmol/L (136-145)
[2025-06-07] MEDS: MAGNESIUM SULFATE / D5W 1 GM/100 ML BAG IV ONE (21:20)
[2025-06-07] MEDS ORDERED: HEPARIN SOD 5,000 UNIT/0.5 ML VIAL SQ SCH (22:00)
[2025-06-07] MEDS: INSULIN ASPART PER UNIT CHARGE SC SCH (22:40)
[2025-06-07] MEDS: NSS + 20MEQ KCL 20 MEQ/1,000 ML BAG IV ONE (23:36)
[2025-06-08 02:34] LABS: ANTI-Xa, UFH(UnfractionatedHep 0.50 IU/ml (0.3-0.7)
[2025-06-08] MEDS: LEVOTHYROXINE SODIUM 25 MCG TABLET PO SCH (06:06)
[2025-06-08 06:28] LABS: Hematocrit (blood only) 32.8 % (42.0-52.0); Hemoglobin 11.1 g/dl (14.0-18.0); Immature Granulocytes # (auto) 0.01 K/uL (0.01-0.20); Immature Granulocytes % (auto) 0.2 %; Mean Corpuscular Hemoglobin 30.4 pg (25.0-34.0); Mean Corpuscular Volume 89.9 fL (80.0-100.0); Platelet Count 173 K/uL (130-400); RDW Standard Deviation 46.9 fL (36.4-46.3); Red Blood Count 3.65 M/uL (4.70-6.10); White Blood Count 4.93 K/ul (4.8-10.8)
[2025-06-08 07:01] LABS: Anion Gap 9.0 (3-11); Blood Urea Nitrogen 29.0 mg/dl (6-23); Calcium 8.3 mg/dl (8.6-10.3); Carbon Dioxide 24.0 mmol/L (21-32); Chloride 104.0 mmol/L (98-107); Cholesterol 154.0 mg/dl (0-200); Creatinine Clr Calc Pharmacy 35.2 ml/min; Glucose 133.0 mg/dl (70-99(Fasting)); HDL Cholesterol 50.0 mg/dl; Potassium 3.6 mmol/L (3.5-5.1); Sodium 137.0 mmol/L (136-145); Triglycerides 75.0 mg/dl (0-150)
[2025-06-08 07:16] LABS: Thyroid Stimulating Hormone 1.618 uIu/ml (0.300-4.500)
[2025-06-08 07:22] LABS: Folate (Folic Acid),Ser orPlas 17.03 ng/ml (>5.38)
[2025-06-08 07:23] LABS: Vitamin B12 210.0 pg/ml (180-914)
[2025-06-08 08:46] LABS: Hemoglobin A1C 7.8 % (4.5-5.6)
[2025-06-08] MEDS ORDERED: CLOPIDOGREL BISULFATE 75 MG TAB PO SCH (09:00)
[2025-06-08] MEDS ORDERED: ASPIRIN 81 MG ECTAB PO SCH (09:00)
[2025-06-08] MEDS: ATORVASTATIN 40 MG TAB PO SCH (09:21)
[2025-06-08 11:11] VITALS: RESP 18
--- NOTE | 2025-06-08 15:35 | Neurology Consultation ---
Date of Consultation June 08, 2025 Assessment & Plan (1) Stroke-like symptom: Suspect that event was related to hypotension, exhaustion, cannot rule out a TIA. Seizure is less likely CTA, and MRI are reassuring. Plan No need for dual antiplatelets given negative exams. Can continue on aspirin 81 mg and atorvastatin. Adjust diuretics, blood pressure medications. Monitor sodium levels. Consider Zio patch upon discharge. Rule out arrhythmias participating to presentation The patient can follow-up with neurology as an outpatient and about 8 weeks after Zio patch result Telehealth Consultation Telehealth Information Telehealth Information: I performed this visit using a real-time telehealth connection between my location and the patients location ([facility]). After connecting through interactive tele-video, patient was identified by name and date of and/or wristband check.Patient (or authorized healthcare lead customer service representative) was informed that this was a telemedicine visit and it was being conducted confidentially over secure lines. My office door was closed and no one else was present in the room with me.Patient (or authorized healthcare lead customer service representative) provided consent to proceed with the visit, expressed an understanding of privacy and security of the telemedicine visit, and gave permission to have a hospital lead customer service representative in the room in order to assist with the visit and to conduct portions of the visit, as needed. I informed the patient (or authorized healthcare lead customer service representative) that I reviewed their record and presented the opportunity for them to ask any questions regarding the visit today. The patient agreed to participate. History of Present Illness Reason for Consultation: Stroke-like symptoms Requesting Physician: Jorge De La O MD Attending Physician: Jorge De La O MD History of Present Illness Jet Clemente is 74-year-old male patient with PMH of HTN, CKD stage III, CAD, tobacco use, history of carotid stenosis, HLP, type II DM, history of a stroke with TNK administration in November 2024. The patient was brought in yesterday,After his granddaughter noticed that he was pale and appeared to be thinking about the sentences. He woke up and wanted to clean his bike to go on the bike ride, noticed that he was a little confused about placing the bike on [employer] and backing up the bike. He also was so tired and sweaty, he reports that it was very hot outside about 90s. He came back and was noticed to be pale, he laid on the bed and his granddaugh ter came to wake him up and noticed that he was talking in a way that he appeared to be thinking about the sentences. On the way to the hospital the patient noted to have mild confusion may be slurred speech but eventually resolved. He was evaluated by telestroke who did not recommend thrombolysis. CTA of the head and neck did not show significant stenosis and MRI showed no acute intracranial process. Allergies Allergy/AdvReac Type Severity Reaction Status Date / Time carisoprodol Allergy Unknown HIVES Verified 12/12/24 07:26 codeine Allergy Unknown HIVES Verified 12/12/24 07:26 oxycodone AdvReac Unknown sees bugs, Verified 12/12/24 07:26 hallucinated Home Medications Medication Instructions Recorded Confirmed Type allopurinol 100 mg tablet 100 mg PO QA 11/12/24 06/07/25 History diltiazem HCl 240 mg 240 mg PO [facility] 11/12/24 06/07/25 History capsule,extended release 24 hr glimepiride 4 mg tablet 4 mg PO [facility] 11/12/24 06/07/25 History hydrochlorothiazide 25 mg tablet 25 mg PO QA 11/12/24 06/07/25 History levothyroxine 25 mcg tablet 25 mcg PO DAILYBB 11/12/24 06/07/25 History metformin 1,000 mg tablet 1,000 mg PO QA 11/12/24 06/07/25 History pantoprazole 40 mg tablet,delayed 40 mg PO QAM 11/12/24 06/07/25 History release rosuvastatin 10 mg tablet 10 mg PO QA 11/12/24 06/07/25 History dulaglutide 0.75 mg/0.5 mL 0.75 mg subcut WK 12/12/24 06/07/25 History subcutaneous pen injector (Trulicity) aspirin 81 mg tablet,delayed 81 mg PO DAILY 06/07/25 06/07/25 History release cyclobenzaprine 10 mg tablet 10 mg PO BID PRN Muscle Spasm 06/07/25 06/07/25 History magnesium 250 mg tablet 500 mg PO QAM 06/07/25 06/07/25 History omega 4-mwa-jpf-fish oil 1,000 mg 1 cap PO QAM 06/07/25 06/07/25 History (120 mg-180 mg) capsule (Fish Oil) potassium chloride 10 mEq 10 meq PO QAM 06/07/25 06/07/25 History tablet,extended release tramadol 50 mg tablet 50 - 100 mg PO Q6 PRN Pain 06/07/25 06/07/25 History Patient History Medical History CKD (chronic kidney disease) CAD (coronary artery disease) non-obstructive per cardiology records History of kidney stones Hypothyroid History of shingles History of gout GERD (gastroesophageal reflux disease) controlled, stable per pt Hyperlipemia HTN (hypertension) controlled, stable per pt Type 2 diabetes mellitus NIDDM Surgical History History of cardiac cath approx 2013, due to family hx. No findings. History of urologic surgery for kidney stone, hx stent. History of lithotripsy multiple History of right shoulder replacement History of right knee surgery History of left knee surgery x2 History of endoscopy pt suspects unable to verify. History of colonoscopy History of lumbar spinal fusion Family History Sister Family history of myocardial infarction Brother Family history of myocardial infarction in first degree male relative before 55 years of age age 37 Social History Smoking Status: Never smoker Tobacco Type: Smokeless Tobacco (Dip or Chew) Cigarettes Per Day: chew daily/advised npo.; Second Hand Exposure: No; Do You Dip or Chew Tobacco: Yes; Tobacco Cessation Education Requested by Patient: No Hx Alcohol Use: No Hx Substance Use: No Preferred Language: Albanian Communication Ability: Effective Carton Catcher Required: No Beliefs That Will Affect Care: None Current Living Situation: Spouse Other Information That Helps Us Care for You: No Feels Safe at Home: Yes Safety Concerns: Feels Safe At This Time Assistive Devices: None Review of Systems Constitutional: Patient denies weight loss, fever, chills, and night sweats Eyes: Patient denies change in vision, tearing, pain, and redness ENT: Patient denies pain, bleeding, rhinorrhea, and dysphagia Cardiovascular: Patient denies chest pain, palpitation, dyspnea at rest, and dyspnea with exertion Respiratory: Patient denies shortness of breath, cough, wheezing, and productive cough GI: Patient denies reflux, pain, constipation, and diarrhea Skin: Patient denies rash, dryness, and itching Allergies/Immune System: Patient denies rhinorrhea, seasonal allergies, reaction to current MEDS, and joint swelling Endocrine: Patient denies weight loss, weight gain, temperature intolerance, and excessive thirst Neurological: All negative unless mentioned in the HPI Physical Exam General Constitutional: Appearance normally developed Head and face: normocephalic and atraumatic Eyes: no ptosis, no anisocoria, and no dysconjugate gaze Respiratory: normal effort Cardiovascular: regular rhythm and regular rate Abdomen: non distended Skin: no rashes, lesions, or ulcers noted Psychiatric: normal judgement and insight, normal mood, and normal affect NEUROLOGIC EXAMINATION: Mental Status:alert, oriented to time, place, person, normal recent memory, normal remote memory, normal attention span, normal concentration, normal language and normal fund of knowledge Cranial Nerves: CN 2 - no visual defect on confrontation and pupils round, equal, reactive to light CN 3, 4, 6 - extra-ocular movements intact and no nystagmus CN 5 - facial sensation intact CN 7 - no facial asymmetry CN 8 - intact hearing CN 9, 10 - palate symmetric, normal gag CN 11 - good shoulder shrug CN 12 - tongue midline MOTOR: Strength was at least antigravity throughout, Pronator drift was absent and There were no abnormal movements SENSATION: intact and symmetric to pinprick, light touch, vibration and joint position GAIT: stable, no ataxia and can perform tandem walking COORDINATION: no ataxia with finger to nose testing and heel to lewis testing REFLEXES: cannot assess over telemedicine NIH Stroke Scale: 1a. Level of Consciousness: alert = 0 1b. LOC Questions: (month, age): both correct = 0 1c. LOC Commands (open and close eyes, make fist and let go using non-paretic hand): obeys both correctly = 0 2. Best Gaze (eyes open and patient follows examiner's finger or face): normal = 0 3. Visual (visual threat or finger counting in each quadrant): no loss = 0 4. Facial Palsy (show teeth, raise eye brows and squeeze eyes shut, or grimace symmetry in a comatose patient): normal = 0 5a. Motor Arm (extend arm (palms down) to 90 degrees and score drift/movement (10 seconds) - Left: no drift = 0 5b. Motor Arm: (extend arm (palms down) to 90 degrees and score drift/movement (10 seconds) - Right: no drift = 0 6a. Motor Leg (elevate leg 30 degrees and score drift/ movement (5 seconds) - Left: no drift = 0 6b. Motor Leg (elevate leg 30 degrees and score drift/ movement (5 seconds) - Right: no drift = 0 7. Limb Ataxia (finger to nose, heel down lewis): absent = 0 8. Sensory (pin prick to face, arm, trunk and leg, compare side to side): normal = 0 9. Best Language: no aphasia = 0 10. Dysarthria (evaluate speech clarity by patient repeating listed words): normal articulation = 0 11. Extinction and Inattention: no neglect = 0 Total: 0 Results & Data Vital Signs (Past 12 Hours) Vital Signs Temp Pulse Resp BP Pulse Ox Pulse Ox O2 Del Method 06/08/25 11:23 94 06/08/25 11:09 36.5 C 74 18 143/79 H 97 Room Air 06/08/25 07:26 37.3 C 92 H 20 140/87 94 Room Air Diagnostic Findings Echocardiogram done today shows left atrium not well-visualized, left ventricular EF is 55 to 60% no significant valvular stenosis. EKG done on 06/07/2025 shows tachycardia. MRI of the brain was reviewed and shows no diffusion restriction to account for any ischemic event no significant white matter changes GRE without evidence of any bleeding. CTA head and neck shows some intracranial calcifications bilateral carotid artery without significant stenosis Medications Administered Home Medications Medication Instructions Recorded Confirmed Last Taken allopurinol 100 mg tablet 100 mg PO M 11/12/24 06/07/25 12/11/24 09:00 diltiazem HCl 240 mg 240 mg PO QA 11/12/24 06/07/25 12/11/24 09:00 capsule,extended release 24 hr glimepiride 4 mg tablet 4 mg PO QAM 11/12/24 06/07/25 12/11/24 09:00 hydrochlorothiazide 25 mg tablet 25 mg PO QAM 11/12/24 06/07/25 12/11/24 09:00 levothyroxine 25 mcg tablet 25 mcg PO DAILYBB 11/12/24 06/07/25 12/11/24 09:00 metformin 1,000 mg tablet 1,000 mg PO QAM 11/12/24 06/07/25 12/11/24 09:00 pantoprazole 40 mg tablet,delayed 40 mg PO QAM 11/12/24 06/07/25 12/11/24 09:00 release rosuvastatin 10 mg tablet 10 mg PO QAM 11/12/24 06/07/25 12/11/24 09:00 dulaglutide 0.75 mg/0.5 mL 0.75 mg subcut WK 12/12/24 06/07/25 12/05/24 20:00 subcutaneous pen injector (Trulicity) aspirin 81 mg tablet,delayed 81 mg PO DAILY 06/07/25 06/07/25 Unknown release cyclobenzaprine 10 mg tablet 10 mg PO BID PRN Muscle Spasm 06/07/25 06/07/25 Unknown magnesium 250 mg tablet 500 mg PO QAM 06/07/25 06/07/25 Unknown omega 8-ehv-cap-fish oil 1,000 mg 1 cap PO QAM 06/07/25 06/07/25 Unknown (120 mg-180 mg) capsule (Fish Oil) potassium chloride 10 mEq 10 meq PO QAM 06/07/25 06/07/25 Unknown tablet,extended release tramadol 50 mg tablet 50 - 100 mg PO Q6 PRN Pain 06/07/25 06/07/25 Unknown Active Medications Generic Name Dose Route Start Last Admin Trade Name Freq PRN Reason Stop Dose Admin Allopurinol 100 mg 06/08/25 09:00 06/08/25 09:21 Allopurinol 100 Mg Tab PO 07/08/25 08:59 100 mg QAM TRISH Administration Atorvastatin Calcium 40 mg 06/08/25 09:00 06/08/25 09:21 Atorvastatin 40 Mg Tab PO 07/08/25 08:59 40 mg QAM TRISH Administration Diltiazem HCl 240 mg 06/08/25 09:00 06/08/25 09:21 Diltiazem Hcl 240 Mg Capcr PO 07/08/25 08:59 240 mg QAM TRISH Administration Heparin Sodium/Dextrose 25,000 units in 500 mls @ 28 mls/hr 06/07/25 18:30 06/08/25 13:47 Heparin 75511 Unit/500 Ml D5w IV 07/07/25 18:29 1,400 units/hr .[id number] TRISH 28 mls/hr Administration Protocol 1,400 UNITS/HR Insulin Aspart 0 units 06/07/25 21:00 06/08/25 13:32 Insulin Aspart Per Unit Charge SC 07/07/25 20:59 Not Given ACHS TRISH Levothyroxine Sodium 25 mcg 06/08/25 06:30 06/08/25 06:06 Levothyroxine Sodium 25 Mcg Tablet PO 07/08/25 06:29 25 mcg DAILYBB TRISH Administration Pantoprazole Sodium 40 mg 06/08/25 09:00 06/08/25 09:21 Pantoprazole 40 Mg Tab PO 07/08/25 08:59 40 mg QAM TRISH Administration ECG Additional Comments: Sinus tachycardia
--- NOTE | 2025-06-08 17:29 | Hospitalist Progress Note ---
Date of Service June 08, 2025 Assessment & Plan (1) Stroke-like symptom: (2) Acute confusion: (3) Hypokalemia: (4) Hypomagnesemia: Plan per admitting service notes with addendum: Mr Murcia is a 74 year old gentleman with past medical history remarkable for HTN, CAD, tobacco use, hypothyroidism, CKD IIIb, carotid stenosis, osteoarthritis s/p TKA 11/2024, chronic anemia, HLD, postherpetic polyneuropathy, DMTII admitted to PCU for further evaluation and management of stroke like symptoms #Stroke like symptoms, suspect TIA #Mild ICA stenosis CTA head and neck unremarkable MRI negative episode of confusion and word slurring resolved ECHO pending PT/OT/Speech in am passed bedside swallow continue ASA and Plavix increase statin to 40mg daily lipid panel and A1C in am b12, folate, tsh in am admit pcu, neuro check q 4 06/08 neuro symptoms resolved Neurologist Dr. Hopkins recommendations: No need for dual antiplatelets given negative exams. Can continue on aspirin 81 mg and atorvastatin. Adjust diuretics, blood pressure medications. Monitor sodium levels. Consider Zio patch upon discharge. Rule out arrhythmias participating to presentation The patient can follow-up with neurology as an outpatient and about 8 weeks after Zio patch result #Sinus tachycardia #RLE edema #ISBELL recent trauma to RLE with fracture to knee cap, right swelling could be traumatic however risk for DVT DDIMER at 4120 not on any medications that would necessarily cause reflex tachycardia does not appear hypovolemic, steady rates in 110s Patient with moderate risk for PE given tachycardia, recent knee immobilization/trauma, RLE edema; cannot obtain CT PE at this time 2/2 recent contrast load and CKD III diagnosis Will start Heparin IV as risk is present for PE Dopplers BLE ordered V/Q scan ordered likely to be completed Monday give sudden onset of ISBELL today #Hyponatremia #Hypokalemia on HCTZ, will discontinue Trend BMP replace lytes prn consider additional eval if plateaued or dropping #HTN #CAD, mild nonobstructive per [employer] 2023 ([facility] 2013) troponin negative, no chest pain ISBELL sudden onset today as above ECHO ordered continue Diltazem hold HCTZ as above #DM 2 a1c 7.8 on metformin and glimepiride as outpatient #Chronic normocytic anemia baseline appears to be 11-12 trend cbc #CKD III BUn at baseline of 30s, Cr. at 2.14 , baseline 2.0-2.3 s/p contrast load with CTA Will hold on CTA PE as hemodynamically stable, plan for VQ scan instead for above concerns #Hypothyroid tsh normal continue Synthroid DVT ppx Heparin drip for concern of PE iso sinus tachycardia, acute ISBELL, ddimer 4120 PCP Myke Blackwood admit to PCU plan of care discussed with patient in detail and at length all questions answered he is understanding, agreeable, comfortable with the plan of care Admission and Anticipated Discharge Date Admission Date: June 07, 2025 Subjective ff up for stroke like symptoms, etc seen resting in chair, comfortable states he feels better overall neuro symptoms resolved no chest pain, dyspnea no other symptoms Review of Systems Review of Systems: all noted and negative except for above Physical Exam Physical Exam: General- oriented x 3, not in distress, speaks in sentences with no effort or accessory muscle use Eyes- anicteric Neck- no JVD Lungs- clear breath sounds bilaterally, no rales/wheezes Heart- normal rate, regular rhythm; no murmurs Abdomen- normal bowel sounds, nondistended, soft, nontender Extremities- no pretibial edema, no calf tenderness Neuro- alert, oriented x 3; no gross focal neurologic deficits Skin- warm & dry Results & Data Results & Data Vital Signs (Past 12 Hours) Vital Signs Temp Pulse Resp BP Pulse Ox Pulse Ox O2 Del Method 06/08/25 15:39 36.4 C L 67 18 124/80 97 Room Air 06/08/25 11:23 94 06/08/25 11:09 36.5 C 74 18 143/79 H 97 Room Air 06/08/25 07:26 37.3 C 92 H 20 140/87 94 Room Air all noted and reviewed including below
[2025-06-09 06:26] LABS: Hematocrit (blood only) 34.1 % (42.0-52.0); Hemoglobin 11.3 g/dl (14.0-18.0); Immature Granulocytes # (auto) 0.01 K/uL (0.01-0.20); Immature Granulocytes % (auto) 0.2 %; Mean Corpuscular Hemoglobin 30.0 pg (25.0-34.0); Mean Corpuscular Volume 90.5 fL (80.0-100.0); Platelet Count 181 K/uL (130-400); RDW Standard Deviation 47.3 fL (36.4-46.3); Red Blood Count 3.77 M/uL (4.70-6.10); White Blood Count 4.86 K/ul (4.8-10.8)
[2025-06-09 06:58] LABS: Anion Gap 11.0 (3-11); Blood Urea Nitrogen 33.0 mg/dl (6-23); Calcium 8.5 mg/dl (8.6-10.3); Carbon Dioxide 23.0 mmol/L (21-32); Chloride 104.0 mmol/L (98-107); Creatinine Clr Calc Pharmacy 32.4 ml/min; Glucose 122.0 mg/dl (70-99(Fasting)); Potassium 3.3 mmol/L (3.5-5.1); Sodium 138.0 mmol/L (136-145)
[2025-06-09 07:05] LABS: ANTI-Xa, UFH(UnfractionatedHep 1.05 IU/ml (0.3-0.7)
--- NOTE | 2025-06-09 07:56 | Electrocardiogram Report ---
Test Reason : Blood Pressure : */* mmHG Vent. Rate : 116 BPM Atrial Rate : 116 BPM P-R Int : 176 ms QRS Dur : 84 ms QT Int : 324 ms P-R-T Axes : 49 -26 41 degrees QTcB Int : 450 ms Sinus tachycardia Low voltage QRS Cannot rule out Anterior infarct (cited on or before 26-Nov-2024) Abnormal ECG When compared with ECG of 26-Nov-2024 14:39, Vent. rate has increased by 51 bpm Nonspecific T wave abnormality no longer evident in Inferior leads Nonspecific T wave abnormality no longer evident in Anterolateral leads Confirmed by Daya Acharya (Shireen) on 06/09/2025 7:56:25 AM Referred By: REFERRED SELF Confirmed By: Daya Acharya
[2025-06-09] MEDS: POTASSIUM CHLORIDE 10 MEQ TABCR PO STA (09:08)
--- NOTE | 2025-06-09 11:24 | Nuclear Medicine Report ---
NM pul perfusion HISTORY: 74 years-old Male concern for pe acute shortness of breath COMPARISON: Chest radiograph and duplex venous Doppler study 06/07/2025 TECHNIQUE: Perfusion study was obtained following the intravenous administration of 5.4 mCi technetiu m 99 MAA given through the left upper extremity. FINDINGS: Recent Doppler study demonstrated no DVT and recent chest radiograph demonstrated no acute findings. No large segmental perfusion defects identified on today's study. IMPRESSION: Low probability for pulmonary embolus ACT 112: Negative or not required by law. The above report was generated using voice recognition software. It may contain grammatical, syntax o r spelling errors. Electronically signed by: Peter Maurer M.D. 06/09/2025 11:23 AM
[2025-06-09 14:18] LABS: ANTI-Xa, UFH(UnfractionatedHep 0.67 IU/ml (0.3-0.7)
--- NOTE | 2025-06-09 14:49 | CT Scan Report ---
CT CHEST WITHOUT IV CONTRAST; ABDOMEN AND PELVIS CT WITHOUT CONTRAST CT DOSE: 1966.1 mGy.cm HISTORY: Acute chest and abdominal pain r/o mass, malignancy TECHNIQUE: Multiaxial CT images of the chest, abdomen and pelvis were performed without contrast. A dose lowering technique was utilized adhering to the principles of ALARA. COMPARISON STUDY: Chest radiograph 06/07/2025, CT neck 06/07/2025 FINDINGS: CT CHEST: No thyroid nodule. No lymphadenopathy. Fusiform dilation of the ascending thoracic aorta me asures up to 4.1 cm. Moderate coronary artery calcifications. No pneumothorax, pleural effusion, airs pace consolidation or overt pulmonary edema. Mild right basilar linear atelectasis versus scarring. S cattered subpleural tiny micronodules within the right lung measuring up to 3 mm are likely benign. U nremarkable soft tissues. Right shoulder arthroplasty. Severe left glenohumeral osteoarthritis. No borrero spicious bone lesions. CT ABDOMEN/PELVIS: No pneumatosis or pneumoperitoneum. Unremarkable spleen, pancreas, adrenal glands and contracted gallbladder. Liver is within normal limits. Lobular morphology of the kidneys. Exophyt ic 3.7 x 3.7 cm lesion of the inferior pole left kidney, Hounsfield unit of 30. 3 mm nonobstructing c alculus of the interpolar left kidney. No ureteral calculi or hydronephrosis. Atherosclerosis of the aorta without aneurysm. No lymphadenopathy. No bowel stricture or bowel wall t hickening. Colonic diverticulosis without acute diverticulitis. No CT evidence of acute appendicitis. Focus of probable chronic epiploic appendagitis, image 239 series 7. Heterogeneity of the left glute us medius muscle on image 294 series 7. There is adjacent subcutaneous edema. Degenerative and postop erative changes of the spine. Osteoarthritis of the hips. Small fat filled umbilical hernia. IMPRESSION: 1. No acute intrathoracic, intra-abdominal or intrapelvic abnormality identified. 2. Indeterminate 3.7 cm left renal lesion. Correlate with follow-up renal ultrasound to differentiate between a complex cyst vs solid lesion. 3. Possible intramuscular hematoma of the left gluteus medius muscle with ill-defined margins. Correl ate with physical exam findings. 4. Nonobstructing left renal calculus without hydronephrosis. 5. Colonic diverticulosis. 6. Small fat filled umbilical hernia. ACT 112: Negative or not required by law. The above report was generated using voice recognition software. It may contain grammatical, syntax o r spelling errors. Electronically signed by: Peter Maurer M.D. 06/09/2025 2:47 PM
--- NOTE | 2025-06-09 14:49 | Discharge Summary ---
Discharge Summary Date of Service June 09, 2025 Principal Dx & Hospital Course #1 = Principal Diagnosis (1) Stroke-like symptom: (2) Acute confusion: (3) Hypokalemia: (4) Hypomagnesemia: Plan per admitting service notes with addendum: Mr Murcia is a 74 year old gentleman with past medical history remarkable for HTN, CAD, tobacco use, hypothyroidism, CKD IIIb, carotid stenosis, osteoarthritis s/p TKA 11/2024, chronic anemia, HLD, postherpetic polyneuropathy, DMTII admitted to PCU for further evaluation and management of stroke like symptoms #Stroke like symptoms #Mild ICA stenosis CTA head and neck unremarkable MRI negative echo: LV ejection fraction 55 to 60%, right ventricle cavity is normal, right ventricular systolic function normal, no significant valvular disease Limited bubble study due to difficult acoustic windows left atrium is not visualized episode of confusion and word slurring resolved 06/09 neuro symptoms resolved Neurologist Dr. Hopkins recommendations: No need for dual antiplatelets given negative exams. Can continue on aspirin 81 mg and atorvastatin. Adjust diuretics, blood pressure medications. Monitor sodium levels. Consider Zio patch upon discharge. Rule out arrhythmias participating to presentation The patient can follow-up with neurology as an outpatient and about 8 weeks after Zio patch result #Sinus tachycardia #RLE edema #ISBELL recent trauma to RLE with fracture to knee cap, right swelling could be traumatic however risk for DVT DDIMER at 4120 not on any medications that would necessarily cause reflex tachycardia does not appear hypovolemic, steady rates in 110s Patient with moderate risk for PE given tachycardia, recent knee immobilization/trauma, RLE edema; cannot obtain CT PE at this time 2/2 recent contrast load and CKD III diagnosis Will start Heparin IV as risk is present for PE venous Doppler ultrasound: Negative for DVT VQ scan: Low probability for pulmonary embolism # D dimer Elevation D-dimer 4120 on admission workup DVT and PE negative Need to investigate possible underlying malignancy Abnormal CT chest, abdomen and pelvis findings ( please refer to full report on diagnostic test section) Fusiform dilation of the ascending thoracic aorta measures up to 4.1 cm. Moderate coronary artery calcifications. Atherosclerosis of the aorta without aneurysm. 1. No acute intrathoracic, intra-abdominal or intrapelvic abnormality identified. 2. Indeterminate 3.7 cm left renal lesion. Correlate with follow-up renal ultrasound to differentiate between a complex cyst vs solid lesion. 3. Possible intramuscular hematoma of the left gluteus medius muscle with ill- defined margins. Correlate with physical exam findings. 4. Nonobstructing left renal calculus without hydronephrosis. 5. Colonic diverticulosis. 6. Small fat filled umbilical hernia. -- Further work up, management, and ff up as outpatient #Hyponatremia #Hypokalemia hold HCTZ potassium supplement ordered -- Repeat potassium on follow-up with PCP in 1 week #HTN #CAD, mild nonobstructive per [place] 2023 ([facility] 2013) troponin negative, no chest pain ISBELL sudden onset today as above ECHO as per above continue Diltazem hold HCTZ to prevent dehydration #DM 2 a1c 7.8 on metformin and glimepiride as outpatient #Chronic normocytic anemia baseline appears to be 11-12 trend cbc #CKD III BUn at baseline of 30s, Cr. at 2.14 , baseline 2.0-2.3 s/p contrast load with CTA creatinine at baseline 2.0 #Hypothyroid tsh normal continue Synthroid plan of care discussed with patient and his daughter in detail and at length all questions answered he is understanding, agreeable, comfortable with the plan of care Notes For Next Care Provider Medication Changes From Visit Discontinue hydrochlorothiazide start potassium supplement Admission HPI Per Admitting Provider Mr Murcia is a 74 year old gentleman with past medical history remarkable for HTN, CAD, tobacco use, hypothyroidism, CKD IIIb, carotid stenosis, osteoarthritis s/p TKA 11/2024, chronic anemia, HLD, postherpetic polyneuropathy, DMTII presented to [facility] ED due to stroke like symptoms. Patient was doing well yesterday. He woke this morning to clean his trike for a group ride. He typically doesn't experience SOB or issues with cleaning his trike, however, today we was taking more breaks and felt tired. He notes that he just didn't "feel like [himself]." The daughter was at bedside and states that the caregiver who aids the patient's noted that the patient was more pale in color and appeared to be "zoned out." The daughter immediately brought patient to the ED. She reports in the care ride the patient was struggling to finds his words and sounded slurred. He was struggling to recall dates and events in recent history. There was no report of limb weakness or facial droop. Patient states he just doesn't feel right. He states he feels it was challenging to find words. He does feel confused, but denies headache, vision changes, difficulty moving limbs, chest pain. He does not he feels like his heart is beating faster than normal. He has never been told he has a fast heart rate or abnormal rhythm before. He does report recent trauma to his right knee. He underwent a knee replacement in 11/2024, but then noted that he fractured the tip of his knee cap with a subsequent hematoma at the end of last month. He was supposed to wear a knee immobilizer, and he did for a short while, but ultimately stopped. He reports that the right knee and calf is a little more swollen than his left after that episode. Patient does not ambulate with a device. 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 Denies etoh or illicits, uses chewing tobacco. Able to state name, location, situation, but was unable to recount year, month, however, knew that it was Monday. In the ED, vitals were notable for BP of 130-140s HR of 110s, and O2 sat of mid 90s on room air Imaging revealed CTA head and neck without signs of bleed or acute abnormality, noting mild atherosclerosis EKG with sinsus tachycardia in 116 QTC 450 ED interventions: asa, plavix, mag Consultants: neurology--telestroke deferred thrombolytics, recommended ASA/Plavix Patient to be admitted to PCU for further evaluation and management of stroke like symptoms Discharge Exam General- oriented x 3, not in distress, speaks in sentences with no effort or accessory muscle use Eyes- anicteric Neck- no JVD Lungs- clear breath sounds bilaterally, no rales/wheezes Heart- normal rate, regular rhythm; no murmurs Abdomen- normal bowel sounds, nondistended, soft, nontender Extremities- no pretibial edema, no calf tenderness Neuro- alert, oriented x 3; no gross focal neurologic deficits Skin- warm & dry Updated Medication List Medication Instructions Recorded Confirmed Type allopurinol 100 mg tablet 100 mg PO QAM 11/12/24 06/07/25 History diltiazem HCl 240 mg 240 mg PO QAM 11/12/24 06/07/25 History capsule,extended release 24 hr glimepiride 4 mg tablet 4 mg PO QAM 11/12/24 06/07/25 History levothyroxine 25 mcg tablet 25 mcg PO DAILYBB 11/12/24 06/07/25 History metformin 1,000 mg tablet 1,000 mg PO QAM 11/12/24 06/07/25 History pantoprazole 40 mg tablet,delayed 40 mg PO QAM 11/12/24 06/07/25 History release dulaglutide 0.75 mg/0.5 mL 0.75 mg subcut WK 12/12/24 06/07/25 History subcutaneous pen injector (Trulicity) aspirin 81 mg tablet,delayed 81 mg PO DAILY 06/07/25 06/07/25 History release cyclobenzaprine 10 mg tablet 10 mg PO BID PRN Muscle Spasm 06/07/25 06/07/25 History magnesium 250 mg tablet 500 mg PO QAM 06/07/25 06/07/25 History omega 1-iob-xfg-fish oil 1,000 mg 1 cap PO QAM 06/07/25 06/07/25 History (120 mg-180 mg) capsule (Fish Oil) tramadol 50 mg tablet 50 - 100 mg PO Q6 PRN Pain 06/07/25 06/07/25 History atorvastatin 40 mg tablet 40 mg PO QAM 30 days #30 tabs 06/09/25 Rx potassium chloride 20 mEq oral 20 meq PO DAILY #10 ea 06/09/25 Rx packet (Klor-Con) Hospital Stay Data Consultations 06/07/25 14:35 ED Decision to Admit Stat 06/07/25 16:37 Consult Neurology Routine Diagnostic Imagining Performed Laboratory Results WBC 4.86 K/ul (4.8-10.8) 06/09/25 05:34 RBC 3.77 M/uL (4.70-6.10) L 06/09/25 05:34 Hgb 11.3 g/dl (14.0-18.0) L 06/09/25 05:34 Hct 34.1 % (42.0-52.0) L 06/09/25 05:34 MCV 90.5 fL (80.0-100.0) 06/09/25 05:34 MCH 30.0 pg (25.0-34.0) 06/09/25 05:34 MCHC 33.1 g/dL (32.0-36.0) 06/09/25 05:34 RDW Std Deviation 47.3 fL (36.4-46.3) H 06/09/25 05:34 RDW Coeff of Jonathon 14.5 % (11.5-14.5) 06/09/25 05:34 Plt Count 181 K/uL (130-400) 06/09/25 05:34 MPV 9.6 fL (9.4-12.4) 06/09/25 05:34 Immature Gran % (Auto) 0.2 % 06/09/25 05:34 Neut % (Auto) 55.7 % 06/09/25 05:34 Lymph % (Auto) 27.4 % 06/09/25 05:34 Rawlins % (Auto) 9.5 % 06/09/25 05:34 Eos % (Auto) 6.4 % 06/09/25 05:34 Baso % (Auto) 0.8 % 06/09/25 05:34 Neut # (Auto) 2.71 K/uL (1.40-6.50) 06/09/25 05:34 Lymph # (Auto) 1.33 K/uL (1.20-3.40) 06/09/25 05:34 Rawlins # (Auto) 0.46 K/uL (0.11-0.59) 06/09/25 05:34 Eos # (Auto) 0.31 K/uL (0.00-0.50) 06/09/25 05:34 Baso # (Auto) 0.04 K/uL (0.00-0.20) 06/09/25 05:34 Immature Gran # (Auto) 0.01 K/uL (0.01-0.20) 06/09/25 05:34 PT 11.4 Seconds (9.0-12.0) 06/07/25 13:45 INR 1.1 (0.9-1.1) 06/07/25 13:45 APTT 31 Seconds (21-31) 06/07/25 13:45 PTT Ratio 1.2 06/07/25 13:45 D-Dimer 4120 ug/L FEU (0-500) H* 06/07/25 15:23 Heparin Anti-Xa, Unfract 0.67 IU/ml (0.3-0.7) 06/09/25 13:21 Sodium 138 mmol/L (136-145) 06/09/25 05:34 Potassium 3.3 mmol/L (3.5-5.1) L 06/09/25 05:34 Chloride 104 mmol/L (98-107) 06/09/25 05:34 Carbon Dioxide 23 mmol/L (21-32) 06/09/25 05:34 Anion Gap 11 (3-11) 06/09/25 05:34 BUN 33 mg/dl (6-23) H 06/09/25 05:34 Creatinine 2.03 mg/dl (0.6-1.4) H 06/09/25 05:34 Est Cr Clr Drug Dosing 32.4 ml/min 06/09/25 05:34 eGFR 33.98 06/09/25 05:34 BUN/Creatinine Ratio 16.3 (10-20) 06/09/25 05:34 Glucose 122 mg/dl (70-99(Fasting)) H 06/09/25 05:34 POC Glucose 130 mg/dl (70-99) H 06/09/25 12:04 Estimat Average Glucose 177 mg/dl 06/08/25 06:04 Hemoglobin A1c 7.8 % (4.5-5.6) H 06/08/25 06:04 Calcium 8.5 mg/dl (8.6-10.3) L 06/09/25 05:34 Magnesium 1.8 mg/dl (1.7-2.4) 06/07/25 13:45 Total Bilirubin 0.6 mg/dl (0.2-1.0) 06/07/25 13:45 AST 26 U/L (13-39) 06/07/25 13:45 ALT 21 U/L (7-52) 06/07/25 13:45 Alkaline Phosphatase 92 U/L (34-104) 06/07/25 13:45 Total Creatine Kinase 193 U/L (30-223) 06/07/25 13:45 Troponin I High Sens 15.9 pg/ml (0-20) 06/07/25 13:45 Total Protein 6.7 gm/dl (6.0-8.3) 06/07/25 13:45 Albumin 3.7 gm/dl (3.4-5.0) 06/07/25 13:45 Globulin 3.0 gm/dl (2.5-4.0) 06/07/25 13:45 Albumin/Globulin Ratio 1.2 (0.9-2) 06/07/25 13:45 Triglycerides 75 mg/dl (0-150) 06/08/25 06:04 Cholesterol 154 mg/dl (0-200) 06/08/25 06:04 LDL Cholesterol, Calc 89 mg/dl 06/08/25 06:04 VLDL Cholesterol, Calc 15 mg/dl (0-30) 06/08/25 06:04 HDL Cholesterol 50 mg/dl 06/08/25 06:04 Cholesterol/HDL Ratio 3.1 (0-5) 06/08/25 06:04 Vitamin B12 210 pg/ml (180-914) 06/08/25 06:04 Folate 17.03 ng/ml (>5.38) 06/08/25 06:04 TSH 1.618 uIu/ml (0.300-4.500) 06/08/25 06:04 Urine Color Yellow 06/07/25 14:30 Urine Appearance Clear (Clear) 06/07/25 14:30 Urine pH 6.0 (4.5-7.5) 06/07/25 14:30 Ur Specific White 1.037 (1.000-1.030) H 06/07/25 14:30 Urine Protein Trace (Negative) H 06/07/25 14:30 Urine Glucose (UA) 3+ (Negative) H 06/07/25 14:30 Urine Ketones 1+ (Negative) H 06/07/25 14:30 Urine Blood Trace (Negative) H 06/07/25 14:30 Urine Nitrite Negative (Negative) 06/07/25 14:30 Urine Bilirubin Negative (Negative) 06/07/25 14:30 Urine Urobilinogen Negative (Negative) 06/07/25 14:30 Ur Leukocyte Esterase Negative (Negative) 06/07/25 14:30 Urine WBC (Auto) 0-5 /hpf (0-5) 06/07/25 14:30 Urine RBC (Auto) 0-2 /hpf (0-2) 06/07/25 14:30 U Hyaline Cast (Auto) 0-2 /lpf (0-2) 06/07/25 14:30 U Epithel Cells (Auto) 0-2 /hpf (0-2) 06/07/25 14:30 Urine Bacteria (Auto) None Seen (None Seen) 06/07/25 14:30 Urine Comment 06/07/25 14:30 Impressions Chest X-Ray 06/07/25 13:28 Chest radiograph, one view History: Neurodeficit Comparison: None Findings: Single AP view of the chest performed. No focal consolidation or pleural effusion. No pneumothorax. The cardiomediastinal silhouette is within normal limits. Normal pulmonary vascularity. No evidence for lymphadenopathy. No visualized bony or soft tissue abnormality. Right shoulder arthroplasty. Severe left shoulder joint degenerative change. Impression: Normal chest radiograph Electronically signed by Aston Sheehan 06-07-2025 2:[address] 06/07/25 13:28 CT angio head w con, CT head/brain wo con, CT angio neck with con CLINICAL HISTORY: 74 years-old Male with neuro deficit, acute stroke suspected. Acute stroke like symptoms COMPARISON STUDY: None TECHNIQUE: Unenhanced axial CT scan of the brain is performed. Subsequently, f ollowing the IV administration of 119 cc of Optiray, CT angiogram of the head and neck was performed from the aortic arch to the skull apex. Images are reviewed in the axial, sagittal, and coronal planes. 3-D MIPS images are created and assessed. IV contrast was administered without complication. All measurements were obtained according to NASCET criteria. A dose lowering technique was utilized adhering to the principles of ALARA. CT DOSE: 1062.42 mGy.cm FINDINGS: CT BRAIN: There is no acute intracranial hemorrhage, midline shift, hydrocephalus, intracranial mass, territorial ischemia or abnormal extra-axial collections. No abnormal intra-axial or extra-axial enhancement. Involutional changes with white matter hypodensities likely representing chronic microvascular ischemic disease. Mastoid air cells and middle ear cavities are clear. No calvarial fracture. Paranasal sinuses are clear. CT ANGIOGRAM OF THE HEAD AND NECK: Three-vessel morphology of the thoracic aortic arch. Patency of the innominate and image subclavian arteries. The common and internal carotid arteries are patent with mild atherosclerosis of the carotid bulbs. The bilateral anterior and middle cerebral arteries are also patent. The dominant right vertebral artery. The left vertebral artery is developmentally consistent. origin of the posterior cerebral arteries. There is no aneurysm, high-grade stenosis, or proximal branch occlusion identified. Dural sinuses appear patent. No pneumothorax. Lung apices are clear. Unremarkable soft tissues. Degenerative changes of the spine. Moderate mucosal thickening of the maxillary sinuses. IMPRESSION: 1. No acute intracranial abnormality. 2. Unremarkable CTA of the head and neck. ACT 112: Negative or not required by law. The above report was generated using voice recognition software. It may contain grammatical, syntax or spelling errors. Electronically signed by: Peter Maurer M.D. 06/07/2025 1:59 PM Head CTA 06/07/25 13:28 CT angio head w con, CT head/brain wo con, CT angio neck with con CLINICAL HISTORY: 74 years-old Male with neuro deficit, acute stroke suspected. Acute stroke like symptoms COMPARISON STUDY: None TECHNIQUE: Unenhanced axial CT scan of the brain is performed. Subsequently, following the IV administration of 119 cc of Optiray, CT angiogram of the head and neck was performed from the aortic arch to the skull apex. Images are reviewed in the axial, sagittal, and coronal planes. 3-D MIPS images are created and assessed. IV contrast was administered without complication. All measurements were obtained according to NASCET criteria. A dose lowering technique was utilized adhering to the principles of ALARA. CT DOSE: 1062.42 mGy.cm FINDINGS: CT BRAIN: There is no acute intracranial hemorrhage, midline shift, hydrocephalus, intracranial mass, territorial ischemia or abnormal extra-axial collections. No abnormal intra-axial or extra-axial enhancement. Involutional changes with white matter hypodensities likely representing chronic microvascular ischemic disease. Mastoid air cells and middle ear cavities are clear. No calvarial fracture. Paranasal sinuses are clear. CT ANGIOGRAM OF THE HEAD AND NECK: Three-vessel morphology of the thoracic aortic arch. Patency of the innominate and image subclavian arteries. The common and internal carotid arteries are patent with mild atherosclerosis of the carotid bulbs. The bilateral anterior and middle cerebral arteries are also patent. The dominant right vertebral artery. The left vertebral artery is developmentally consistent. origin of the posterior cerebral arteries. There is no aneurysm, high-grade stenosis, or proximal branch occlusion identified. Dural sinuses appear patent. No pneumothorax. Lung apices are clear. Unremarkable soft tissues. Degenerative changes of the spine. Moderate mucosal thickening of the maxillary sinuses. IMPRESSION: 1. No acute intracranial abnormality. 2. Unremarkable CTA of the head and neck. ACT 112: Negative or not required by law. The above report was generated using voice recognition software. It may contain grammatical, syntax or spelling errors. Electronically signed by: Peter Maurer M.D. 06/07/2025 1:59 PM Neck CTA 06/07/25 13:28 CT angio head w con, CT head/brain wo con, CT angio neck with con CLINICAL HISTORY: 74 years-old Male with neuro deficit, acute stroke suspected. Acute stroke like symptoms COMPARISON STUDY: None TECHNIQUE: Unenhanced axial CT scan of the brain is performed. Subsequently, following the IV administration of 119 cc of Optiray, CT angiogram of the head and neck was performed from the aortic arch to the skull apex. Images are reviewed in the axial, sagittal, and coronal planes. 3-D MIPS images are created and assessed. IV contrast was administered without complication. All measurements were obtained according to NASCET criteria. A dose lowering technique was utilized adhering to the principles of ALARA. CT DOSE: 1062.42 mGy.cm FINDINGS: CT BRAIN: There is no acute intracranial hemorrhage, midline shift, hydrocephalus, intracr anial mass, territorial ischemia or abnormal extra-axial collections. No abnormal intra-axial or extra-axial enhancement. Involutional changes with white matter hypodensities likely representing chronic microvascular ischemic disease. Mastoid air cells and middle ear cavities are clear. No calvarial fracture. Paranasal sinuses are clear. CT ANGIOGRAM OF THE HEAD AND NECK: Three-vessel morphology of the thoracic aortic arch. Patency of the innominate and image subclavian arteries. The common and internal carotid arteries are patent with mild atherosclerosis of the carotid bulbs. The bilateral anterior and middle cerebral arteries are also patent. The dominant right vertebral artery. The left vertebral artery is developmentally consistent. origin of the posterior cerebral arteries. There is no aneurysm, high-grade stenosis, or proximal branch occlusion identified. Dural sinuses appear patent. No pneumothorax. Lung apices are clear. Unremarkable soft tissues. Degenerative changes of the spine. Moderate mucosal thickening of the maxillary sinuses. IMPRESSION: 1. No acute intracranial abnormality. 2. Unremarkable CTA of the head and neck. ACT 112: Negative or not required by law. The above report was generated using voice recognition software. It may contain grammatical, syntax or spelling errors. Electronically signed by: Peter Maurer M.D. 06/07/2025 1:59 PM Brain MRI 06/07/25 14:48 MRI BRAIN WITHOUT CONTRAST TECHNIQUE: An MRI examination of the brain was performed utilizing sagittal and axial T1-weighted images as well as axial T2-weighted, FLAIR, gradient echo and diffusion-weighted images. INDICATION: Headaches COMPARISON: CT examinations from earlier in the same day are not viewable in our system. FINDINGS: The ventricular, sulcal and cisternal spaces are normal in caliber. There is no evidence of intracranial mass lesion, hydrocephalus, infarct, extra-axial fluid collection, restricted diffusion or parenchymal hemorrhage. Age-related involutional changes of the brain and moderate chronic white matter ischemic changes. The cerebellar tonsils are normal in position. The pituitary gland is not enlarged. The major arterial vascular structures of the skull base are patent. No intraorbital soft tissue mass lesion is observed. The visualized paranasal sinuses are aerated. Mastoids are aerated. IMPRESSION: No acute intracranial process identified. Chronic findings as above Electronically signed by Luke Curtis 06-07-2025 4:47 PM Venous Doppler Study 06/07/25 15:19 Examination: Doppler venous ultrasound of the lower extremity Comparison: None Technique: Grayscale evaluation with compression, spectral flow, and color Doppler assessment of the deep venous system of the leg, from the groin to the knee, as well as the lower leg Findings: The external iliac, common femoral, femoral, popliteal, and posterior tibial veins demonstrate normal compressibility and blood flow. Impression: No evidence for DVT of the bilateral lower extremity Electronically signed by Aston Sheehan 06-07-2025 6:57 PM Pulmonary Perfusion Imaging 06/09/25 10:30 NM pul perfusion HISTORY: 74 years-old Male concern for pe acute shortness of breath COMPARISON: Chest radiograph and duplex venous Doppler study 06/07/2025 TECHNIQUE: Perfusion study was obtained following the intravenous administration of 5.4 mCi technetium 99 MAA given through the left upper extremity. FINDINGS: Recent Doppler study demonstrated no DVT and recent chest radiograph demonstrated no acute findings. No large segmental perfusion defects identified on today's study. IMPRESSION: Low probability for pulmonary embolus ACT 112: Negative or not required by law. The above report was generated using voice recognition software. It may contain grammatical, syntax or spelling errors. Electronically signed by: Peter Maurer M.D. 06/09/2025 11:23 AM Abdomen/Pelvis CT 06/09/25 12:54 CT CHEST WITHOUT IV CONTRAST; ABDOMEN AND PELVIS CT WITHOUT CONTRAST CT DOSE: 1966.1 mGy.cm HISTORY: Acute chest and abdominal pain r/o mass, malignancy TECHNIQUE: Multiaxial CT images of the chest, abdomen and pelvis were performed without contrast. A dose lowering technique was utilized adhering to the principles of ALARA. COMPARISON STUDY: Chest radiograph 06/07/2025, CT neck 06/07/2025 FINDINGS: CT CHEST: No thyroid nodule. No lymphadenopathy. Fusiform dilation of the ascending thoracic aorta measures up to 4.1 cm. Moderate coronary artery calcifications. No pneumothorax, pleural effusion, airspace consolidation or overt pulmonary edema. Mild right basilar linear atelectasis versus scarring. Scattered subpleural tiny micronodules within the right lung measuring up to 3 mm are likely benign. Unremarkable soft tissues. Right shoulder arthroplasty. S evere left glenohumeral osteoarthritis. No suspicious bone lesions. CT ABDOMEN/PELVIS: No pneumatosis or pneumoperitoneum. Unremarkable spleen, pancreas, adrenal glands and contracted gallbladder. Liver is within normal limits. Lobular morphology of the kidneys. Exophytic 3.7 x 3.7 cm lesion of the inferior pole left kidney, Hounsfield unit of 30. 3 mm nonobstructing calculus of the interpolar left kidney. No ureteral calculi or hydronephrosis. Atherosclerosis of the aorta without aneurysm. No lymphadenopathy. No bowel stricture or bowel wall thickening. Colonic diverticulosis without acute diverticulitis. No CT evidence of acute appendicitis. Focus of probable chronic epiploic appendagitis, image 239 series 7. Heterogeneity of the left gluteus medius muscle on image 294 series 7. There is adjacent subcutaneous edema. Degenerative and postoperative changes of the spine. Osteoarthritis of the hips. Small fat filled umbilical hernia. IMPRESSION: 1. No acute intrathoracic, intra-abdominal or intrapelvic abnormality identified. 2. Indeterminate 3.7 cm left renal lesion. Correlate with follow-up renal ultrasound to differentiate between a complex cyst vs solid lesion. 3. Possible intramuscular hematoma of the left gluteus medius muscle with ill- defined margins. Correlate with physical exam findings. 4. Nonobstructing left renal calculus without hydronephrosis. 5. Colonic diverticulosis. 6. Small fat filled umbilical hernia. ACT 112: Negative or not required by law. The above report was generated using voice recognition software. It may contain grammatical, syntax or spelling errors. Electronically signed by: Peter Maurer M.D. 06/09/2025 2:[address] 06/09/25 12:54 CT CHEST WITHOUT IV CONTRAST; ABDOMEN AND PELVIS CT WITHOUT CONTRAST CT DOSE: 1966.1 mGy.cm HISTORY: Acute chest and abdominal pain r/o mass, malignancy TECHNIQUE: Multiaxial CT images of the chest, abdomen and pelvis were performed without contrast. A dose lowering technique was utilized adhering to the principles of ALARA. COMPARISON STUDY: Chest radiograph 06/07/2025, CT neck 06/07/2025 FINDINGS: CT CHEST: No thyroid nodule. No lymphadenopathy. Fusiform dilation of the ascending thoracic aorta measures up to 4.1 cm. Moderate coronary artery calcifications. No pneumothorax, pleural effusion, airspace consolidation or ove rt pulmonary edema. Mild right basilar linear atelectasis versus scarring. Scattered subpleural tiny micronodules within the right lung measuring up to 3 mm are likely benign. Unremarkable soft tissues. Right shoulder arthroplasty. Severe left glenohumeral osteoarthritis. No suspicious bone lesions. CT ABDOMEN/PELVIS: No pneumatosis or pneumoperitoneum. Unremarkable spleen, pancreas, adrenal glands and contracted gallbladder. Liver is within normal limits. Lobular morphology of the kidneys. Exophytic 3.7 x 3.7 cm lesion of the inferior pole left kidney, Hounsfield unit of 30. 3 mm nonobstructing calculus of the interpolar left kidney. No ureteral calculi or hydronephrosis. Atherosclerosis of the aorta without aneurysm. No lymphadenopathy. No bowel stricture or bowel wall thickening. Colonic diverticulosis without acute diverticulitis. No CT evidence of acute appendicitis. Focus of probable chronic epiploic appendagitis, image 239 series 7. Heterogeneity of the left gluteus medius muscle on image 294 series 7. There is adjacent subcutaneous edema. Degenerative and postoperative changes of the spine. Osteoarthritis of the hips. Small fat filled umbilical hernia. IMPRESSION: 1. No acute intrathoracic, intra-abdominal or intrapelvic abnormality identified. 2. Indeterminate 3.7 cm left renal lesion. Correlate with follow-up renal ultrasound to differentiate between a complex cyst vs solid lesion. 3. Possible intramuscular hematoma of the left gluteus medius muscle with ill- defined margins. Correlate with physical exam findings. 4. Nonobstructing left renal calculus without hydronephrosis. 5. Colonic diverticulosis. 6. Small fat filled umbilical hernia. ACT 112: Negative or not required by law. The above report was generated using voice recognition software. It may contain grammatical, syntax or spelling errors. Electronically signed by: Peter Maurer M.D. 06/09/2025 2:47 PM Pending Results Patient Have Any Pending Studies at Discharge: No Discharge Instructions Given to Patient (Per Discharging Provider) PLEASE REFER TO YOUR NEW MEDICATION LIST AND FOLLOW INSTRUCTIONS CAREFULLY. YOUR NEW MEDICATIONS INCLUDE: Change rosuvastatin to atorvastatin. Hold metformin today, resume tomorrow June 09, 2025. This is to protect her kidneys as you have received IV contrast 2 days ago. Please drink plenty of fluids. PLEASE CALL YOUR PRIMARY CARE PHYSICIAN OR RETURN TO THE ER IF WITH WORSENING OF SYMPTOMS, INCLUDING stroke-like symptoms, chest pain, shortness of breath, dizziness, palpitations, passing out, etc FOLLOW UP WITH PRIMARY CARE PHYSICIAN IN 1 WEEK. You need to have an ultrasound of your left kidney to evaluate a 3.7cm lesion seen on your CT of the abdomen. Your Primary Care Physician can help you with this. Who to Call and When: Medical Emergencies: Call 911 immediately if you experience any of the following warning signs and symptoms of Stroke: Sudden numbness or weakness of the face, arm or leg, especially on one side of the body Sudden confusion, trouble speaking or understanding Sudden trouble seeing in one or both eyes Sudden trouble walking, dizziness, loss of balance or coordination Sudden severe headache with no cause Do not delay calling 911 if you experience any warning signs or symptoms of a stroke. Delay in seeking medical attention may affect what treatments can be given to you. Risk Factors for Stroke: You can reduce your chances of stroke by working with your medical provider to adopt a healthy lifestyle. Some specific ways to lower your chance of stroke are: If you are a smoker, now is the time to stop smoking cigarettes If you are diabetic, improve the control of your blood sugars Avoid excessive amounts of alcohol Control high blood pressure Lose weight if you are overweight Be sure to lead an active lifestyle Eat a healthy diet low in salt, cholesterol and fat You should know about other risk factors for stroke that you are unable to control. These include: Age 55 years or older Male gender Certain racial groups: , or / Family History of Stroke, Mini stroke or Heart Attack Sickle Cell Disease Follow Up: It is important for you to keep your follow up appointments with your medical provider. . . Total Time Total Time Spent Total Time Spent (In Minutes): 60 minutes
[2025-06-09 15:26] VITALS: BP 121/74; PULSE 61; TEMP 97.5; O2SAT 97
[2025-06-09] MEDS: STROKE PATIENT DISCHARGE STA (16:46)
== END 2025-06-09 17:25 | disposition home or self-care (01) | DRG 92 ==
LOC: ED 13:25 → SUATTDRO 15:52 → EDINP 15:52 → 4W 16:38